=== PATIENT | male | born 1935 | race Caucasian/White ===

== ENCOUNTER 2018-04-05 06:54 | Day surgery (SDC) | payer MEDICARE, SELFPAY ==
[2018-04-05] MEDS: PROPARACAINE 0.5% OPHTH SOL 2 DROPS EYE-OP (07:44)
[2018-04-05 07:47] VITALS: BMI 27.8
[2018-04-05] MEDS: CATARACT EYE COMPOUND (10 DROPS/SYRINGE) 3 DROPS EYE-OP (07:53)
[2018-04-05 08:05] VITALS: BP 164/97; PULSE 70; RESP 16; TEMP 36.2; O2SAT 98
--- NOTE | 2018-04-05 08:37 | P.OP.PRE_ITS ---
Pre-operative Note Interval Note Changes: No
--- NOTE | 2018-04-05 08:37 | PM.PREOP ---
Pre-operative Note Interval Note Changes: No
--- NOTE | 2018-04-05 08:37 | PM.OP.1 ---
Operative Date/Time/Diagnoses Pre-op diagnosis: Nuclear cataract right eye Procedure & Clinicians Procedure: Cataract Surgery Same procedure as scheduled: Yes Surgeon: Anselmo Luna Anesthesia Type: MAC +/- and Sedation Operative Notes Procedure in detail: Patient brought to the operating suite. Tetracaine drops placed in the right eye. Marking instrument was used to arnulfo the vertical and horizontal meridians. Patient was prepped and draped in sterile manner. Wire lid speculum was placed in the eye. Marking instrument was used to arnulfo the 30 degree meridian. Betadine drops were placed on the eye. This was irrigated. Lidocaine jelly was placed on the eye. A paracentesis port was created with a side-port blade. 0.1 mL 1% preservative free lidocaine was injected into the anterior chamber. The anterior chamber was deepened with viscoelastic. 2.6 mm keratome was used to create a temporal clear corneal incision. Cystotome and Utrata forceps were used to create continuous tear capsulorrhexis. Balanced salt solution was used to hydro dissect the nucleus. The phacoemulsification handpiece was inserted and the nucleus was removed using the stop and chop technique. The irrigation aspiration handpiece was inserted and the remaining cortex was removed. Anterior chamber was deepened with viscoelastic. An Rojas [id number] intraocular lens with a power of 22.0 was injected into the capsular bag. Irrigation aspiration handpiece was inserted and the remaining viscoelastic was removed. The lens was rotated to the 30 degree meridian. Incision was hydrated with balanced salt solution and found to be leak free with pressure with Weck-Ting sponges. 0.1 mL Vigamox injected anterior chamber. 0.3 mL Kenalog 10 mg was injected subconjunctivally. Lid speculum was removed. The patient left the operating room in excellent condition. Complications: none Condition: stable Disposition: same day surgery
[2018-04-05] MEDS: CHONDROIDTIN/SOD HYALURONATE 1.05 ML SYRINGE INTRAOCULA (08:47)
[2018-04-05] MEDS: MOXIFLOXACIN OPHTH DROPS 3 ML BOTTLE 2 DROPS INJ (08:48)
[2018-04-05] MEDS: LIDOCAINE JELLY 2% 5 ML 1 APPLIC TOP (08:48)
[2018-04-05] MEDS: PHENYLEPHRINE/LIDOCAINE VIAL (OR) 0.2 ML EYE-OP (08:48)
[2018-04-05] MEDS: TETRACAINE 0.5% OPHTH DROPS 15 ML 2 DROPS EYE-RIGHT (08:49)
[2018-04-05] MEDS: TRIAMCINOLONE 50 MG/5 ML VIAL INJ (08:49)
[2018-04-05] MEDS: BALANCED SALT IRRIG SOLN NO.2 500 ML, EPINEPHrine 1 MG IRR (08:49)
[2018-04-05 10:39] VITALS: BP 145/90; PULSE 58; RESP 20; TEMP 36.3; O2SAT 100
== END 2018-04-05 09:15 | disposition home or self-care (01) ==
LOC: OR 06:57
PROVIDERS: PCP Physician Assistant; Visit Provider Ophthalmology
DX: H25.11 Age-related nuclear cataract, right eye (principal); I50.9 Heart failure, unspecified; Z95.0 Presence of cardiac pacemaker; I48.91 Unspecified atrial fibrillation
CPT/HCPCS: J0171; J2250; J3010; J3301; V2787

== ENCOUNTER 2018-04-12 07:51 | Day surgery (SDC) | payer MEDICARE, SELFPAY ==
[2018-04-12 08:34] VITALS: BMI 27.8
[2018-04-12] MEDS: PROPARACAINE 0.5% OPHTH SOL 2 DROPS EYE-OP (08:41)
[2018-04-12] MEDS: CATARACT EYE COMPOUND (10 DROPS/SYRINGE) 3 DROPS EYE-OP (08:44)
[2018-04-12 08:50] VITALS: BP 154/84; PULSE 63; RESP 15; TEMP 36.6; O2SAT 96
--- NOTE | 2018-04-12 09:43 | PM.PREOP ---
Pre-operative Note Interval Note Changes: No
--- NOTE | 2018-04-12 09:44 | P.OP_ITS ---
Operative Date/Time/Diagnoses Pre-op diagnosis: Nuclear Cataract Left eye Post-op diagnosis: same Procedure & Clinicians Surgeon: Anselmo Luna Anesthesia Type: MAC +/- and Sedation Operative Notes Procedure in detail: Patient brought to the operating suite. Tetracaine drops placed in the left eye. Patient was prepped and draped in sterile manner. Wire lid speculum was placed in the eye. Betadine drops were placed on the eye. This was irrigated. Lidocaine jelly was placed on the eye. A paracentesis port was created with a side-port blade. 0.1 mL 1% preservative free lidocaine was injected into the anterior chamber. The anterior chamber was deepened with viscoelastic. 2.6 mm keratome was used to create a temporal clear corneal incision. Cystotome and Utrata forceps were used to create continuous tear capsulorrhexis. Balanced salt solution was used to hydro dissect the nucleus. The phacoemulsification handpiece was inserted and the nucleus was removed using the stop and chop technique. The irrigation aspiration handpiece was inserted and the remaining cortex was removed. Anterior chamber was deepened with viscoelastic. An Rojas [id number] intraocular lens with a power of 21.5 was injected into the capsular bag. Irrigation aspiration handpiece was inserted and the remaining viscoelastic was removed. Incision was hydrated with balanced salt solution and found to be leak free with pressure with Weck- Ting sponges. 0.1 mL Vigamox injected anterior chamber. 0.3 mL Kenalog 10 mg was injected subconjunctivally. Lid speculum was removed. The patient left the operating room in excellent condition. Complications: none Condition: stable Disposition: same day surgery
--- NOTE | 2018-04-12 09:44 | P.OP.PRE_ITS ---
Pre-operative Note Interval Note Changes: No
[2018-04-12] MEDS: PHENYLEPHRINE/LIDOCAINE VIAL (OR) 0.2 ML EYE-OP (09:56)
[2018-04-12] MEDS: TRIAMCINOLONE 50 MG/5 ML VIAL INJ (09:57)
[2018-04-12] MEDS: MOXIFLOXACIN OPHTH DROPS 3 ML BOTTLE 2 DROPS INJ (09:57)
[2018-04-12] MEDS: CHONDROIDTIN/SOD HYALURONATE 1.05 ML SYRINGE INTRAOCULA (09:57)
[2018-04-12] MEDS: LIDOCAINE JELLY 2% 5 ML 1 APPLIC TOP (09:58)
[2018-04-12] MEDS: BALANCED SALT IRRIG SOLN NO.2 500 ML, EPINEPHrine 1 MG IRR (09:58)
[2018-04-12] MEDS: TETRACAINE 0.5% OPHTH DROPS 15 ML 2 DROPS EYE-LEFT (09:59)
[2018-04-12 10:06] VITALS: BP 134/86; PULSE 59; RESP 14; TEMP 36.1; O2SAT 99
--- NOTE | 2018-04-12 10:24 | SUR.PHASEII ---
1020 Tolerating PO well, To cafeteria w/ via wheelchair (volunteer). Pleasant, appreciative. No questions/concerns.
== END 2018-04-12 10:25 | disposition home or self-care (01) ==
PROVIDERS: PCP Physician Assistant; Visit Provider Ophthalmology
DX: H25.12 Age-related nuclear cataract, left eye (principal); I10 Essential (primary) hypertension; Z95.0 Presence of cardiac pacemaker; I48.91 Unspecified atrial fibrillation; I50.9 Heart failure, unspecified
CPT/HCPCS: J0171; J2250; J3010; J3301

== ENCOUNTER → 2020-04-08 16:22 | Outpatient (CLI) | payer MEDICARE, SELFPAY ==
[2020-04-08 17:07] LABS: Add Manual Diff / Slide Review NO; Basophils Absolute Auto 100 /uL (0-100); Basophils Percent Auto 1.4 % (0-2); Eosinophils Absolute Auto 100 /uL (0-450); Eosinophils Percent Auto 1.1 % (2-4); Hematocrit 46.4 % (41-53); Hemoglobin 15.8 g/dL (13.5-17.5); Lymphocytes Absolute Auto 1900 /uL (1100-4500); Lymphocytes Percent Auto 23.3 % (25-40); Mean Corpuscular HGB Conc 34.1 % (30-36); Monocytes Absolute Auto 1000 /uL (0-900); Monocytes Percent Auto 12.5 % (3-14); Neutrophils Absolute Auto 4900 /uL (1500-7000); Neutrophils Percent Auto 61.7 % (50-75); Platelet Count 262 X10^3/uL (150-400); Red Blood Cell Count 4.64 X10^6/uL (4.5-5.9)
[2020-04-08 17:17] LABS: Alanine Aminotransferase 36 IU/L (<50); Albumin 4.7 g/dL (3.5-5.0); Albumin Globulin Ratio 1.3 (1.0-2.8); Alkaline Phosphatase 60 U/L (38-126); Aspartate Aminotransferase 36 IU/L (17-59); BUN Creatinine Ratio 27.6 (6-22); Bilirubin Total 0.7 mg/dL (0.2-1.3); Blood Urea Nitrogen 29 mg/dL (9-20); Calcium 9.5 mg/dL (8.4-10.2); Carbon Dioxide 26 mmol/L (22-32); Chloride 102 mmol/L (98-107); Estimated Glomerular Filt Rate > 60.0 mL/min (>60); Globulin 3.5 g/dL (1.7-4.1); Glucose 99 mg/dL (80-110); HEMOLYSIS < 15 (0-50); Potassium 4.2 mmol/L (3.4-5.1); Sodium 134 mmol/L (137-145); Total Protein 8.2 g/dL (6.3-8.2)
[2020-04-08 17:36] LABS: Vitamin D 25 Hydroxy (D3) 43.3 ng/mL (30.0-100.0)
[2020-04-08 17:53] LABS: Prostate Specific Antigen Scrn < 0.064 ng/mL (0.1-4.0)
[2020-04-08 18:06] LABS: Vitamin B12 960 pg/mL (239-931)
== END ==
PROVIDERS: PCP Family Medicine; Referring Provider Family Medicine; Visit Provider Family Medicine
DX: C61 Malignant neoplasm of prostate (principal); Z12.5 Encounter for screening for malignant neoplasm of prostate; M81.0 Age-related osteoporosis without current pathological fracture; I48.91 Unspecified atrial fibrillation; R20.2 Paresthesia of skin
CPT/HCPCS: 36415; 80053; 82306; 82607; 85025; G0103

== ENCOUNTER → 2020-04-18 13:28 | Outpatient (CLI) | payer MEDICARE, SELFPAY | PROVIDERS: PCP Family Medicine; Referring Provider Family Medicine; Visit Provider Family Medicine | DX: M85.88 Other specified disorders of bone density and structure, other site (principal); Z85.46 Personal history of malignant neoplasm of prostate; Z87.891 Personal history of nicotine dependence | CPT/HCPCS: 77080 ==

== ENCOUNTER → 2020-10-03 09:26 | Outpatient (CLI) | payer MEDICARE, SELFPAY ==
[2020-10-03 11:20] LABS: Bilirubin Urine UA NEGATIVE (NEGATIVE); Color Urine UA YELLOW; Glucose Urine UA NEGATIVE (Negative); Ketones Urine UA NEGATIVE (NEGATIVE); Leukocyte Esterase Urine UA TRACE (NEGATIVE); Nitrite Urine UA NEGATIVE (Negative); Occult Blood Urine UA 3+ (Negative); Protein Urine UA 1+ (Negative); Urobilinogen Urine UA 0.2 E.U./dL (0.2)
[2020-10-03 11:26] LABS: Appearance Urine UA CLOUDY
[2020-10-03 11:43] LABS: RBC Urine >100/HPF (0-5/HPF)
[2020-10-03 11:45] LABS: WBC Urine 5-10/HPF (0-5/HPF)
[2020-10-03 11:46] LABS: Bacteria Urine Occasional (0-1); Culture Indicated Urine Specimen Cultured; Squamous Epithelial Cell Urine 0-1 /HPF (0-5/HPF)
[2020-10-03 11:47] LABS: Appearance Urine UA CLOUDY; Bilirubin Urine UA NEGATIVE (NEGATIVE); Color Urine UA RED; Glucose Urine UA NEGATIVE (Negative); Ketones Urine UA NEGATIVE (NEGATIVE); Nitrite Urine UA NEGATIVE (Negative); Occult Blood Urine UA 3+ (Negative); Protein Urine UA 2+ (Negative); Specific Gravity Urine UA 1.025 (1.000-1.035); Urobilinogen Urine UA 0.2 E.U./dL (0.2)
[2020-10-03 11:48] LABS: Leukocyte Esterase Urine UA 3+ (NEGATIVE)
[2020-10-03 11:49] LABS: RBC Urine >100/HPF (0-5/HPF)
[2020-10-03 11:50] LABS: WBC Urine 5-10/HPF (0-5/HPF)
[2020-10-03 11:51] LABS: Bacteria Urine Occasional (0-1); Culture Indicated Urine Specimen Cultured; Red Blood Cell Casts Urine 0-1/LPF
== END ==
PROVIDERS: PCP Family Medicine; Referring Provider Family Medicine; Visit Provider Family Medicine
DX: R31.9 Hematuria, unspecified (principal)
CPT/HCPCS: 81001; 87086

== ENCOUNTER 2021-09-09 12:08 | Emergency (ER) | payer MEDICARE, SELFPAY ==
[2021-09-09] VITALS (14 sets, daily range): BP systolic 134–168; BP diastolic 83–92; PULSE 62–84; RESP 16–24; TEMP 37; O2SAT 97–100; BMI 26.8
--- NOTE | 2021-09-09 12:11 | DI.RAD.S_ITS ---
PROCEDURE: XR CHEST 1V INDICATIONS: syncope TECHNIQUE: One view of the chest was acquired. COMPARISON: [facility], CHEST 1 VIEW, 01/07/2015, 15:02. [facility], CHEST 2 VIEW, 02/12/2009, 15:26. FINDINGS: Surgical changes and devices: Left chest wall pacer is seen with intact leads. Lungs and pleura: Lungs are clear. No pleural effusions or pneumothorax. Mediastinum: Mediastinal contours appear normal. Heart size is normal. The aorta is tortuous. Bones and chest wall: No suspicious bony lesions. Overlying soft tissues appear unremarkable. IMPRESSION: No acute cardiopulmonary abnormality. Dictated by: Jose Goldberg M.D. on 09/09/2021 at 12:46 Approved by: Jose Goldberg M.D. on 09/09/2021 at 12:48
--- NOTE | 2021-09-09 12:11 | DI.CT.S_ITS ---
PROCEDURE: CT HEAD/BRAIN WO CON INDICATIONS: syncope one hour ago TECHNIQUE: Noncontrast 4.5 mm thick angled axial sections acquired from the foramen magnum to the vertex, with coronal and sagittal reformats. For radiation dose reduction, the following was used: automated exposure control, adjustment of mA and/or kV according to patient size. COMPARISON: [facility], CR, CHEST 1 VIEW, 01/07/2015, 15:02. [facility], CR, XR CHEST 1V, 09/09/2021, 12:01. [facility], MR, BRAIN WITH AND WITHOUT CONTRAS, 08/31/2007, 7:08. FINDINGS: Mild global cerebral volume loss with mild chronic microvascular ischemic changes. Hyperdensity along the anterolateral right temporal lobe appears to be calcific due to cortical laminar necrosis or potentially a small calcified meningioma, although this could less likely represent a small focus of intracranial hemorrhage hemorrhage. No abnormal extra-axial fluid collection or acute intracranial hemorrhage otherwise. No mass effect or midline shift. Moderate global cerebral volume loss and mild chronic microvascular ischemic changes. Carotid and basilar atherosclerosis. Innumerable tiny foci of air adjacent to the right pterygoids, masseter, and TMJ. A few small foci of air in the bilateral carotid sinuses and adjacent to the temporalis musculature as well. In the absence of trauma, this likely represents intravenous gas introduced during IV catheter placement. Soft tissues otherwise unremarkable. No significant orbital abnormality. Paranasal sinuses and mastoid air cells are clear. No acute osseous abnormality. IMPRESSION: Nonspecific hyperdensity in the anterior right temporal lobe region. Repeat in 4 hours recommended. Numerous nonspecific foci gas the deep right facial soft tissues as described above, likely introduced during recent IV catheter placement. Follow-up study in 4 hours will also help exclude other less likely etiologies. Dictated by: Velasquez Uriarte M.D. on 09/09/2021 at 12:28 Approved by: Velasquez Uriarte M.D. on 09/09/2021 at 12:38
[2021-09-09] MEDS: SODIUM CHLORIDE 0.9% 1,000 ML 150 ML IV (12:15)
[2021-09-09 12:18] LABS: Add Manual Diff / Slide Review NO; Basophils Absolute Auto 100 /uL (0-100); Basophils Percent Auto 0.9 % (0-2); Eosinophils Absolute Auto 100 /uL (0-450); Eosinophils Percent Auto 1.7 % (2-4); Hematocrit 45.2 % (41-53); Hemoglobin 14.9 g/dL (13.5-17.5); Lymphocytes Absolute Auto 2200 /uL (1100-4500); Lymphocytes Percent Auto 27.9 % (25-40); Mean Corpuscular Hemoglobin 32.6 PG (26-34); Mean Corpuscular Volume 98.7 fL (80-100); Monocytes Absolute Auto 1000 /uL (0-900); Monocytes Percent Auto 12.6 % (3-14); Neutrophils Absolute Auto 4400 /uL (1500-7000); Neutrophils Percent Auto 56.9 % (50-75); Platelet Count 327 X10^3/uL (150-400); Red Blood Cell Count 4.58 X10^6/uL (4.5-5.9); White Blood Cell Count 7.7 X10^3/uL (4.5-11.0)
[2021-09-09 12:27] LABS: INR 2.5 (0.9-1.3); Prothrombin Time 28.3 SECONDS (10.1-12.7)
[2021-09-09 12:29] LABS: PTT Partial Thromboplastin Tim 38 SECONDS (26.4-36.2)
[2021-09-09 12:31] LABS: Alanine Aminotransferase 26 IU/L (<50); Albumin Globulin Ratio 1.3 (1.0-2.8); Alkaline Phosphatase 78 U/L (38-126); Aspartate Aminotransferase 35 IU/L (17-59); BUN Creatinine Ratio 20.9 (6-22); Bilirubin Total 0.8 mg/dL (0.2-1.3); Blood Urea Nitrogen 24 mg/dL (9-20); Calcium 9.6 mg/dL (8.4-10.2); Carbon Dioxide 21 mmol/L (22-32); Chloride 100 mmol/L (98-107); Creatine Kinase 40 U/L (55-170); Estimated Glomerular Filt Rate > 60 mL/min (>60); Globulin 3.8 g/dL (1.7-4.1); Glucose 107 mg/dL (80-110); HEMOLYSIS < 15 (0-50); Lipase 189 U/L (23-300); Potassium 4.4 mmol/L (3.4-5.1); Sodium 134 mmol/L (137-145); Total Protein 8.8 g/dL (6.3-8.2)
[2021-09-09 12:40] LABS: NT-proBNP (BNP-Adult 18+) 910 pg/mL (<450)
[2021-09-09 12:42] LABS: Troponin I 0.015 ng/mL (0.01-0.034)
--- NOTE | 2021-09-09 12:42 | ED.SYNCOPE ---
HPI - Syncope General Chief Complaint: Syncope Stated Complaint: Syncope Time Seen by Provider: 09/09/21 12:10 Source: patient and EMS Mode of arrival: EMS Limitations: no limitations History of Present Illness HPI narrative: Patient is a 86-year-old male history of atrial flutter with ablation, pacemaker on Xarelto presenting with a near syncopal episode. He was outside working on this elbow then he and his friends were sitting around chatting when suddenly he got little light headed states of the friend thought he nodded off or maybe passed out for about 1 minute. He there is no trauma he did not fall no injury to his head. He denies any chest pain palpitations headache nausea vomiting numbness tingling or weakness. He does not actually remember the event but is not feeling just fine. EMS reports that he had some orthostatic hypotension IV fluid was started. Related Data Previous Rx's Medication Instructions Recorded omeprazole 20 mg capsule,delayed 20 mg PO BID #60 cap 07/17/21 release losartan 25 mg tablet See Rx Instructions .ROUTE 09/08/21 .COMPLEX #90 tab Allergies Allergy/AdvReac Type Severity Reaction Status Date / Time morphine [MORPHINE] Allergy Intermediate halluncinat Verified 09/09/21 12:19 ions Sulfa (Sulfonamide Allergy Mild fever Verified 09/09/21 12:19 Antibiotics) Review of Systems Review of Systems Narrative: GENERAL: Denies chills, fatigue, malaise, fever, sweats, travel HEENT: Denies sinus pain, ear pain, sore throat, difficulty swallowing, neck pain RESPIRATORY: Denies dyspnea, cough, wheezing, hemoptysis, sputum. CARDIOVASCULAR: Denies chest pain, palpitations, orthopnea, edema GASTROINTESTINAL: Denies nausea, vomiting, abdominal pain, diarrhea, constipation, melena. : Denies dysuria, frequency, incontinence, hematuria, urinary retention, flank pain. MUSCULOSKELETAL: Denies weakness, joint pain, or bony pain SKIN: No rash, no erythema, no pruritus NEUROLOGIC: See HPI PSYCHIATRIC: No concerning psychosocial issues. 12 point review of systems is negative except for those stated above and HPI Patient History Medical History Abnormal chest xray AV block (~2014) Chicken pox Gross hematuria Hearing loss Herpes (~1959) History of elevated PSA (~1992) History of prostate cancer Measles Mumps Osteoporosis Plantar warts (~2004) Prostate cancer (~1992) Tinnitus (~1972) Tubular adenoma Vertigo (~2007) Surgical History Anesthesia History of appendectomy (~1955) History of prostatectomy (~1992) Pacemaker (~2012) S/P ablation of atrial fibrillation Family History Father Cancer History of heart disease Mother Pneumonia Stroke Brother Prostate cancer Sister Autoimmune disease Sister Breast cancer Social History marital status: household members: spouse lives independently: Yes education level: master's degree ([employer]) occupational status: other (retired) Smoking Status: Former smoker Tobacco: How many years used: 25 alcohol intake: current substance use type: marijuana (very rare) Smoking Status: Former smoker alcohol intake frequency: 0-2 drinks per day Exam Initial Vital Signs Initial Vital Signs: Vital Signs Temperature 98.6 F 09/09/21 12:08 Pulse Rate 64 09/09/21 12:08 Respiratory Rate 18 09/09/21 12:08 Blood Pressure 134/92 H 09/09/21 12:08 Pulse Oximetry 98 09/09/21 12:08 GENERAL: Very well-appearing 86-year-old gentleman HEENT: Head atraumatic,EOMI, pupils reactive, face symmetric, moist mucous membranes NECK: No vertebral tenderness no step-off CARDIOVASCULAR: Regular rate and rhythm without murmurs, rubs or gallops. RESPIRATORY: Breath sounds equal bilaterally, no wheezes rales or rhonchi. ABDOMEN: Soft, nontender. Normoactive bowel sounds all 4 quadrants. No guarding or rebound. EXTREMITIES: Normal range of motion, no clubbing or edema. Neurovascularly intact NEUROLOGICAL: Alert and oriented x4.Normal gait and speech. Cranial nerves II through XII grossly intact. Good [id number], good [id number], strength equal bilaterally, no dysarthria or aphasia, sensation in tact to soft touch bilaterally, no visual changes, no facial droop SKIN: Warm, dry, no laceration, no petechiae, no rashes or lesions. Course Orders Ordered: ED Orders 09/09/21 12:11 CT head/brain wo con Stat XR chest 1V Stat EKG-12 Lead Stat 09/09/21 12:12 Complete Blood Count AUTO DIFF Stat Comprehensive Metabolic Panel Stat Lipase Stat NT-proBNP (BNP-Adult 18+) Stat Partial Thromboplastin Time Stat Prothrombin Time INR Stat Troponin & CK Cardiac Panel Stat 09/09/21 16:30 CT head/brain wo con Stat Discontinued Medications Sodium Chloride (Normal Saline 0.9%) 1,000 mls @ 150 mls/hr IV CONT KRISTIAN Last Infusion: 09/09/21 16:49 Dose: 0 mls/hr Documented by: [email or web address] Admin: 09/09/21 12:15 Dose: 150 mls/hr Documented by: [email or web address] Vital Signs Vital signs: Vital Signs - 8 hr 09/09/21 12:08 09/09/21 12:13 09/09/21 12:30 Temperature 98.6 F Pulse Rate 64 75 72 Respiratory Rate 18 17 22 Blood Pressure 134/92 H Pulse Oximetry 98 98 99 09/09/21 13:00 09/09/21 13:30 09/09/21 13:32 Temperature Pulse Rate 74 75 63 Respiratory Rate 22 21 18 Blood Pressure 153/83 H Pulse Oximetry 100 98 98 09/09/21 14:00 09/09/21 14:30 09/09/21 15:00 Temperature Pulse Rate 74 79 66 Respiratory Rate 22 23 22 Blood Pressure 160/88 H Pulse Oximetry 98 97 98 09/09/21 15:30 09/09/21 16:00 09/09/21 16:36 Temperature Pulse Rate 62 78 70 Respiratory Rate 22 24 17 Blood Pressure Pulse Oximetry 98 09/09/21 16:38 09/09/21 17:33 Temperature Pulse Rate 64 84 Respiratory Rate 20 16 Blood Pressure 168/87 H 168/86 H Pulse Oximetry 99 97 MDM - Syncope Lab Data Result diagrams: 09/09/21 12:12 09/09/21 12:12 Labs: Lab Results 09/09/21 09/09/21 09/09/21 Range/Units 12:12 12:12 12:12 WBC 7.7 (4.5-11.0) X10^3/uL RBC 4.58 (4.5-5.9) X10^6/uL Hgb 14.9 (13.5-17.5) g/dL Hct 45.2 (41-53) % MCV 98.7 (80-100) fL MCH 32.6 (26-34) PG MCHC 33.0 (30-36) % RDW 14.0 (11.6-14.8) % Plt Count 327 (150-400) X10^3/uL Neut % (Auto) 56.9 (50-75) % Lymph % (Auto) 27.9 (25-40) % [place] % (Auto) 12.6 (3-14) % Eos % (Auto) 1.7 L (2-4) % Baso % (Auto) 0.9 (0-2) % Neut # (Auto) 4400 (1555-1511) /uL Lymph # (Auto) 2200 (4492-8416) /uL [place] # (Auto) 1000 H (0-900) /uL Eos # (Auto) 100 (0-450) /uL Baso # (Auto) 100 (0-100) /uL PT 28.3 H (10.1-12.7) SECONDS INR 2.5 H (0.9-1.3) APTT 38 H (26.4-36.2) SECONDS Sodium (137-145) mmol/L Potassium (3.4-5.1) mmol/L Chloride (98-107) mmol/L Carbon Dioxide (22-32) mmol/L BUN (9-20) mg/dL Creatinine (0.66-1.25) mg/dL Estimated GFR (>60) mL/min BUN/Creatinine Ratio (6-22) Glucose (80-110) mg/dL Calcium (8.4-10.2) mg/dL Total Bilirubin (0.2-1.3) mg/dL AST (17-59) IU/L ALT (<50) IU/L Alkaline Phosphatase (38-126) U/L Total Creatine Kinase (55-170) U/L CK-MB (CK-2) CK-MB (CK-2) Rel Index Troponin I (0.01-0.034) ng/mL NT-Pro-B Natriuret Pep 910 H (<450) pg/mL Total Protein (6.3-8.2) g/dL Albumin (3.5-5.0) g/dL Globulin (1.7-4.1) g/dL Albumin/Globulin Ratio (1.0-2.8) Lipase (23-300) U/L 09/09/21 Range/Units 12:12 WBC (4.5-11.0) X10^3/uL RBC (4.5-5.9) X10^6/uL Hgb (13.5-17.5) g/dL Hct (41-53) % MCV (80-100) fL MCH (26-34) PG MCHC (30-36) % RDW (11.6-14.8) % Plt Count (150-400) X10^3/uL Neut % (Auto) (50-75) % Lymph % (Auto) (25-40) % [place] % (Auto) (3-14) % Eos % (Auto) (2-4) % Baso % (Auto) (0-2) % Neut # (Auto) (6658-3848) /uL Lymph # (Auto) (9082-7871) /uL [place] # (Auto) (0-900) /uL Eos # (Auto) (0-450) /uL Baso # (Auto) (0-100) /uL PT (10.1-12.7) SECONDS INR (0.9-1.3) APTT (26.4-36.2) SECONDS Sodium 134 L (137-145) mmol/L Potassium 4.4 (3.4-5.1) mmol/L Chloride 100 (98-107) mmol/L Carbon Dioxide 21 L (22-32) mmol/L BUN 24 H (9-20) mg/dL Creatinine 1.15 (0.66-1.25) mg/dL Estimated GFR > 60 (>60) mL/min BUN/Creatinine Ratio 20.9 (6-22) Glucose 107 (80-110) mg/dL Calcium 9.6 (8.4-10.2) mg/dL Total Bilirubin 0.8 (0.2-1.3) mg/dL AST 35 (17-59) IU/L ALT 26 (<50) IU/L Alkaline Phosphatase 78 (38-126) U/L Total Creatine Kinase 40 L (55-170) U/L CK-MB (CK-2) TNP CK-MB (CK-2) Rel Index TNP Troponin I 0.015 (0.01-0.034) ng/mL NT-Pro-B Natriuret Pep (<450) pg/mL Total Protein 8.8 H (6.3-8.2) g/dL Albumin 5.0 (3.5-5.0) g/dL Globulin 3.8 (1.7-4.1) g/dL Albumin/Globulin Ratio 1.3 (1.0-2.8) Lipase 189 (23-300) U/L Imaging Data CT scan - head: Radiologist's Impression: Signed Patient: Anselmo Castro MR#: [id number] : 1935 Acct:[id number] Age/Sex: 86 / M Date of Service: 09/09/21 Loc: ED Accession Number: [id number] ?? Procedure: CT head/brain wo con Ordering Provider: Luna Merida D.O. PROCEDURE:? CT HEAD/BRAIN WO CON ? INDICATIONS:? syncope one hour ago ? TECHNIQUE:? Noncontrast 4.5 mm thick angled axial sections acquired from the foramen magnum to the vertex, with coronal and sagittal reformats.? For radiation dose reduction, the following was used:? automated exposure control, adjustment of mA and/or kV according to patient size.? ? COMPARISON:? [facility], CR, CHEST 1 VIEW, 01/07/2015, 15:02.? [facility], CR, XR CHEST 1V, 09/09/2021, 12:01.? [facility], MR, BRAIN WITH AND WITHOUT CONTRAS, 08/31/2007, 7:08. ? FINDINGS:? ? ? Mild global cerebral volume loss with mild chronic microvascular ischemic changes.? ? Hyperdensity along the anterolateral right temporal lobe appears to be calcific due to cortical laminar necrosis or potentially a small calcified meningioma, although this could less likely represent a small focus of intracranial hemorrhage hemorrhage.? No abnormal extra-axial fluid collection or acute intracranial hemorrhage otherwise.? No mass effect or midline shift.? Moderate global cerebral volume loss and mild chronic microvascular ischemic changes.? Carotid and basilar atherosclerosis. Innumerable tiny foci of air adjacent to the right pterygoids, masseter, and TMJ.? A few small foci of air in the bilateral carotid sinuses and adjacent to the temporalis musculature as well.? In the absence of trauma, this likely represents intravenous gas introduced during IV catheter placement. ? Soft tissues otherwise unremarkable.? No significant orbital abnormality.? Paranasal sinuses and mastoid air cells are clear.? No acute osseous abnormality. ? IMPRESSION: ? Nonspecific hyperdensity in the anterior right temporal lobe region.? Repeat in 4 hours recommended. ? Numerous nonspecific foci gas the deep right facial soft tissues as described above, likely introduced during recent IV catheter placement.? Follow-up study in 4 hours will also help exclude other less likely etiologies. ? ? Dictated by: Velasquez Uriarte M.D. on 09/09/2021 at 12:28 ? ? CT Head #2: Radiologist's Impression: CT Scan Report Signed Patient: Anselmo Castro MR#: [id number] : 1935 Acct:[id number] Age/Sex: 86 / M Date of Service: 09/09/21 Loc: ED Accession Number: [id number] ?? Procedure: CT head/brain wo con Ordering Provider: Luna Merida D.O. PROCEDURE:? CT HEAD/BRAIN WO CON ? INDICATIONS:? repeat on xeralto ? bleed vs meningioma, air also noted ? TECHNIQUE:? Noncontrast 4.5 mm thick angled axial sections acquired from the foramen magnum to the vertex, with coronal and sagittal reformats.? For radiation dose reduction, the following was used:? automated exposure control, adjustment of mA and/or kV according to patient size.? ? COMPARISON:? [facility], CT, CT HEAD/BRAIN WO CON, 09/09/2021, 12:24. ? FINDINGS:? ? 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 There has been no significant change from the prior study, and this is felt very unlikely to represent intracranial hemorrhage.? No intracranial hemorrhage elsewhere.? Global cerebral volume loss and chronic microvascular ischemic changes.? Intracranial atherosclerosis.? No acute or suspicious osseous lesion.? Subcutaneous emphysema seen previously has resolved. ? IMPRESSION:? ? Hyperdense and likely extra-axial mass favored to represent a meningioma in the right middle cranial fossa.? Nonemergent outpatient MRI of the brain with without IV contrast recommended for further evaluation. ? 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 ? Dictated by: Velasquez Uriarte M.D. on 09/09/2021 at 16:38 ? ? Approved by: Velasquez Uriarte M.D. on 09/09/2021 at 16:39? ECG Data Interpretation: Paced rhythm 73 TX interval 174 QRS [address] changes or to previous MDM Narrative Medical decision making narrative: Patient here with unprovoked syncopal episode initial CT show concern for a meningioma versus hemorrhage. Patient is neurologically intact. He has been monitored in the emergency department for [address] does not show any change. Patient's blood work and EKG are overall reassuring. Patient had a brief syncopal episode while sitting today without any evidence trauma. He did have some air noted in the subcutaneous to Chi tissue on 1st head CT likely from an IV start which actually resolved on the 2nd head CT. Multiple attempts to interrogate the patient's pacemaker [employer], but technical difficulties unable to transmit. Patient states that he has something off home notify him if there has been an abnormality. 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 Patient was out in the sun today working on a boat he may have overdone it. At this time no need for admission. Discharge Plan Departure Patient Disposition: Home Clinical Impression: Near syncope Instructions: DI for Syncope in Adults (Fainting) Activity Restrictions/Additional Instructions: *You have been diagnosed with fainting *What to do: Your CT does show a probable meningioma which is benign and needs to be followed with your primary care provider. It unlikely and that this is what caused you to pass out today. *Continue to take medications as directed *Follow up with your primary care provider in 2-3 days or call [phone] *Return to ER if you should have worsening headache nausea vomiting numbness tingling weakness recurrent episode of passing out or any new, worsening or concerning symptoms Prescriptions: No Action omeprazole 20 mg capsule,delayed release(DR/EC) 20 mg PO BID Qty: 60 0RF losartan 25 mg tablet See Rx Instructions .ROUTE .COMPLEX Qty: 90 0RF Dose Instruction: TAKE ONE TABLET BY MOUTH ONE TIME DAILY Rx Instructions: TAKE ONE TABLET BY MOUTH ONE TIME DAILY Referrals: Manjula Garcia, [Primary Care Provider] -
--- NOTE | 2021-09-09 16:30 | DI.CT.S_ITS ---
PROCEDURE: CT HEAD/BRAIN WO CON INDICATIONS: repeat on xeralto ? bleed vs meningioma, air also noted TECHNIQUE: Noncontrast 4.5 mm thick angled axial sections acquired from the foramen magnum to the vertex, with coronal and sagittal reformats. For radiation dose reduction, the following was used: automated exposure control, adjustment of mA and/or kV according to patient size. COMPARISON: [facility], CT, CT HEAD/BRAIN WO CON, 09/09/2021, 12:24. 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 There has been no significant change from the prior study, and this is felt very unlikely to represent intracranial hemorrhage. No intracranial hemorrhage elsewhere. Global cerebral volume loss and chronic microvascular ischemic changes. Intracranial atherosclerosis. No acute or suspicious osseous lesion. Subcutaneous emphysema seen previously has resolved. IMPRESSION: Hyperdense and likely extra-axial mass favored to represent a meningioma in the right middle cranial fossa. Nonemergent outpatient MRI of the brain with without IV contrast recommended for further evaluation. Resolution of previously seen subcutaneous emphysema in the right cylinder steamer space. Dictated by: Velasquez Uriarte M.D. on 09/09/2021 at 16:38 Approved by: Velasquez Uriarte M.D. on 09/09/2021 at 16:39
--- NOTE | 2021-09-09 17:35 | PC.NURSE ---
Multiple attempts made to send pacemaker data to [employer]. These attempts were unsuccessful despite various attempts. 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 Pt verbalized understanding of discharge instructions at this time.
== END 2021-09-09 17:35 | disposition home or self-care (01) ==
PROVIDERS: Emergency Provider Emergency Medicine; PCP Family Medicine
DX: R55 Syncope and collapse (principal); Z95.0 Presence of cardiac pacemaker; Z79.01 Long term (current) use of anticoagulants
CPT/HCPCS: 70450; 71045; 80053; 82550; 83690; 83880; 84484; 85025; 85610; 85730; 93005; 99284

== ENCOUNTER → 2022-02-26 09:54 | Outpatient (CLI) | payer MEDICARE, SELFPAY ==
--- NOTE | 2022-02-26 09:56 | DI.CT.S_ITS ---
PROCEDURE: CT HEAD/BRAIN WO CON INDICATIONS: follow up meningioma TECHNIQUE: Noncontrast 4.5 mm thick angled axial sections acquired from the foramen magnum to the vertex, with coronal and sagittal reformats. For radiation dose reduction, the following was used: automated exposure control, adjustment of mA and/or kV according to patient size. COMPARISON: [facility], MR, BRAIN WITH AND WITHOUT CONTRAS, 08/31/2007, 7:08. [facility], CT, CT HEAD/BRAIN WO CON, 09/09/2021, 12:24. [facility], CT, CT HEAD/BRAIN WO CON, 09/09/2021, 14:36. FINDINGS: Right anterolateral middle cranial fossa meningioma is not significantly changed in size from previous examination, again measuring approximately 1.2 x 1.6 centimeters maximum axial dimension and 1.3 centimeters craniocaudal. No acute intracranial hemorrhage. No abnormal extra-axial fluid collection. No findings of significant mass effect. Normal ventricular caliber and position. Patent basilar cisterns. Mild global cerebral volume loss and chronic microvascular ischemic changes are similar. IMPRESSION: Unchanged calcified right anterolateral middle cranial fossa meningioma. Dictated by: Velasquez Uriarte M.D. on 02/26/2022 at 10:59 Approved by: Velasquez Uriarte M.D. on 02/26/2022 at 11:11
== END ==
PROVIDERS: PCP Family Medicine; Referring Provider Family Medicine; Visit Provider Family Medicine
DX: D32.0 Benign neoplasm of cerebral meninges (principal)
CPT/HCPCS: 70450

== ENCOUNTER → 2022-05-07 11:21 | Outpatient (CLI) | payer MEDICARE, SELFPAY ==
--- NOTE | 2022-05-07 11:24 | DI.RAD.S_ITS ---
PROCEDURE: XR HIP W PEL IF DONE RT 2V INDICATIONS: Right hip pain TECHNIQUE: AP pelvis with lateral view(s) of the right hip(s). COMPARISON: None. FINDINGS: Bones: No fractures or dislocations. Pelvic ring appears intact. No suspicious bony lesions. Degenerative changes of the right femoroacetabular joint. Soft tissues: The visualized bowel gas pattern is normal. No suspicious soft tissue calcifications. Surgical clips noted in the right lower pelvis. IMPRESSION: Right hip degenerative change. No acute fracture or dislocation. Dictated by: Meliton Eubanks M.D. on 05/07/2022 at 12:20 Approved by: Meliton Eubanks M.D. on 05/07/2022 at 12:21
[2022-05-07 13:30] LABS: Prostate Specific Antigen < 0.064 ng/mL (0.10-4.00)
== END ==
PROVIDERS: Urology; PCP Family Medicine; Referring Provider Registered Nurse; Visit Provider Registered Nurse
DX: C61 Malignant neoplasm of prostate (principal); R31.0 Gross hematuria; M25.551 Pain in right hip
CPT/HCPCS: 36415; 73502; 84153

== ENCOUNTER 2022-09-25 21:37 | Emergency (ER) | payer MEDICARE, SELFPAY ==
[2022-09-25 21:48] VITALS: BP 194/109; PULSE 70; RESP 18; TEMP 36.3; O2SAT 96; BMI 27.1
--- NOTE | 2022-09-25 22:14 | ED_ITS ---
HPI - General Adult <Jayjay Alexis DO - Last Filed: 09/26/22 17:59> General Chief complaint: Urogenital-Male Stated complaint: Cramping bladder pain Time Seen by Provider: 09/25/22 21:48 Source: patient Mode of arrival: Ambulatory History of Present Illness HPI narrative: Patient is an 87-year-old male. Has a history of adenocarcinoma of the prostate. Had a radical prostatectomy back in the early . Has been on anticoagulation in the past for atrial fibrillation/a flutter however has not been on any blood thinners for a year or more. Has had issues with hematuria in the past. Has seen urology in the past. Has been reported that he is had urethral varices at some point in the past they were noticed on cystoscopy. Last saw urology little over 1 year ago. States he was at his normal state of h ealth. Last night had a fairly sudden onset of hematuria. Is also having quite a bit of lower abdominal pain and dysuria and frequency. He also states that he has been having some issues with constipation. Has not taken anything for his constipation. No fevers. No vomiting. Related Data Previous Rx's Medication Instructions Recorded omeprazole 20 mg capsule,delayed 20 mg PO BID #60 caps 07/17/21 release losartan 25 mg tablet See Rx Instructions .Route 12/22/21 .COMPLEX #90 tabs methocarbamol 500 mg tablet 500 mg PO TID PRN muscle pain #20 05/07/22 tabs oxycodone-acetaminophen 5 mg-325 1 tab PO Q6H PRN pain #10 tabs 05/07/22 mg tablet (Percocet) Allergies Allergy/AdvReac Type Severity Reaction Status Date / Time morphine [MORPHINE] Allergy Intermediate halluncinat Verified 09/09/21 12:19 ions Sulfa (Sulfonamide Allergy Mild fever Verified 09/09/21 12:19 Antibiotics) Review of Systems <Jayjay Alexis DO - Last Filed: 09/26/22 17:59> Constitutional Constitutional: Reports system reviewed and no additional complaints, except as documented Gastrointestinal Gastrointestinal: Reports system reviewed and no additional complaints, except as documented Genitourinary Genitourinary: Reports system reviewed and no additional complaints, except as d ocumented Musculoskeletal Musculoskeletal: Reports system reviewed and no additional complaints, except as documented Integumentary/Breasts Skin/Breast: Reports system reviewed and no additional complaints, except as documented Neurologic Neurologic: Reports system reviewed and no additional complaints, except as documented Hematologic/Lymphatic On Anticoagulants: No Patient History <Jayjay Alexis DO - Last Filed: 09/26/22 17:59> Medical History Abnormal chest xray AV block (~2014) Chicken pox Gross hematuria Hearing loss Herpes (~1959) History of elevated PSA (~1992) History of prostate cancer Measles Mumps Osteoporosis Pacemaker Plantar warts (~2004) Prostate cancer (~1992) Tinnitus (~1972) Tubular adenoma Vertigo (~2007) Surgical History Anesthesia History of appendectomy (~1955) History of prostatectomy (~1992) Hx of total knee arthroplasty (~2021) Pacemaker (~2012) S/P ablation of atrial fibrillation Family History Father Cancer History of heart disease Mother Pneumonia Stroke Brother Prostate cancer Sister Autoimmune disease Sister Breast cancer Social History marital status: household members: spouse lives independently: Yes 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; 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) occupational status: other (retired) Smoking Status: Former smoker Tobacco: How many years used: 25 alcohol intake: current substance use type: marijuana (very rare) Smoking Status: Former smoker alcohol intake frequency: 0-2 drinks per day Substance Use Type: does not use Exam <Jayjay Alexis DO - Last Filed: 09/26/22 17:59> Initial Vital Signs Initial Vital Signs: Vital Signs Temperature 97.4 F L 09/25/22 21:48 Pulse Rate 70 09/25/22 21:48 Respiratory Rate 18 09/25/22 21:48 Blood Pressure 194/109 H 09/25/22 21:48 Pulse Oximetry 96 09/25/22 21:48 Oxygen Delivery Method Room Air 09/25/22 21:48 Const General: cooperative and No ill appearing HENMT Head: normal to inspection and normocephalic Resp Effort & Inspection: normal respiratory effort Auscultation: clear to auscultation bilaterally Cardio Rate: regular rate Rhythm: regular rhythm GI Inspection: normal to inspection and non-distended Palpation: soft and tender General: bimanual renal exam normal bilaterally Skin General: no rashes or lesions noted Neuro General: patient alert, patient awake and moves all extremities Extrem General: normal to inspection and capillary refill normal <Rios Wray DO - Last Filed: 09/26/22 08:25> Initial Vital Signs Initial Vital Signs: Vital Signs Temperature 97.4 F L 09/25/22 21:48 Pulse Rate 70 09/25/22 21:48 Respiratory Rate 18 09/25/22 21:48 Blood Pressure 194/109 H 09/25/22 21:48 Pulse Oximetry 96 09/25/22 21:48 Oxygen Delivery Method Room Air 09/25/22 21:48 Course <Jayjay Alexis DO - Last Filed: 09/26/22 17:59> Orders Ordered: Discontinued Medications Hydromorphone HCl (Hydromorphone 0.5 Mg Inj) 0.5 mg IV NOW ONE Stop: 09/25/22 23:27 Last Admin: 09/25/22 23:37 Dose: 0.5 mg Documented By: JONATHAN Sodium Chloride (Normal Saline 0.9%) 1,000 mls @ 1,000 mls/hr IV BOLUS ONE Stop: 09/25/22 23:44 Last Infusion: 09/26/22 00:40 Dose: 0 mls/hr Documented By: Admin: 09/25/22 23:37 Dose: 1,000 mls/hr Documented By: JONATHAN Sodium Chloride (Normal Saline 0.9%) 1,000 mls @ 1,000 mls/hr IV BOLUS ONE Stop: 09/26/22 01:31 Last Infusion: 09/26/22 02:28 Dose: 0 mls/hr Documented By: Admin: 09/26/22 01:28 Dose: 1,000 mls/hr Documented By: JONATHAN Lidocaine HCl (Lidocaine 2% (Glydo) 6 Ml Gel) 6 ml TOP NOW ONE Stop: 09/26/22 00:47 Last Admin: 09/26/22 01:28 Dose: 6 ml Documented By: JONATHAN Lidocaine HCl (Lidocaine 2% (Glydo) 6 Ml Gel) 6 ml TOP NOW ONE Stop: 09/26/22 06:14 Phenazopyridine HCl (Phenazopyridine 100 Mg Tablet) 100 mg PO NOW ONE Stop: 09/25/22 22:44 Last Admin: 09/25/22 23:37 Dose: 100 mg Documented By: JONATHAN Vital Signs Vital signs: Vital Signs - 8 hr 09/26/22 00:35 09/26/22 00:35 09/26/22 00:36 Pulse Rate 70 70 Respiratory Rate 18 Blood Pressure 202/110 H Pulse Oximetry 96 94 09/26/22 00:36 09/26/22 00:47 09/26/22 01:14 Pulse Rate 68 Respiratory Rate Blood Pressure 202/116 H 171/94 H Pulse Oximetry 96 09/26/22 02:21 09/26/22 02:36 09/26/22 03:00 Pulse Rate Respiratory Rate Blood Pressure 180/99 H 186/101 H 182/93 H Pulse Oximetry 09/26/22 03:30 09/26/22 04:00 09/26/22 04:21 Pulse Rate Respiratory Rate Blood Pressure 169/99 H 186/115 H 186/102 H Pulse Oximetry 09/26/22 04:30 Pulse Rate Respiratory Rate 20 Blood Pressure 169/95 H Pulse Oximetry <Rios Wray, - Last Filed: 09/26/22 08:25> Orders Ordered: Discontinued Medications Hydromorphone HCl (Hydromorphone 0.5 Mg Inj) 0.5 mg IV NOW ONE Stop: 09/25/22 23:27 Last Admin: 09/25/22 23:37 Dose: 0.5 mg Documented By: JONATHAN Sodium Chloride (Normal Saline 0.9%) 1,000 mls @ 1,000 mls/hr IV BOLUS ONE Stop: 09/25/22 23:44 Last Infusion: 09/26/22 00:40 Dose: 0 mls/hr Documented By: Admin: 09/25/22 23:37 Dose: 1,000 mls/hr Documented By: JONATHAN Sodium Chloride (Normal Saline 0.9%) 1,000 mls @ 1,000 mls/hr IV BOLUS ONE Stop: 09/26/22 01:31 Last Infusion: 09/26/22 02:28 Dose: 0 mls/hr Documented By: Admin: 09/26/22 01:28 Dose: 1,000 mls/hr Documented By: JONATHAN Lidocaine HCl (Lidocaine 2% (Glydo) 6 Ml Gel) 6 ml TOP NOW ONE Stop: 09/26/22 00:47 Last Admin: 09/26/22 01:28 Dose: 6 ml Documented By: JONATHAN Lidocaine HCl (Lidocaine 2% (Glydo) 6 Ml Gel) 6 ml TOP NOW ONE Stop: 09/26/22 06:14 Phenazopyridine HCl (Phenazopyridine 100 Mg Tablet) 100 mg PO NOW ONE Stop: 09/25/22 22:44 Last Admin: 09/25/22 23:37 Dose: 100 mg Documented By: JONATHAN Vital Signs Vital signs: Vital Signs - 8 hr 09/26/22 00:35 09/26/22 00:35 09/26/22 00:36 Pulse Rate 70 70 Respiratory Rate 18 Blood Pressure 202/110 H Pulse Oximetry 96 94 09/26/22 00:36 09/26/22 00:47 09/26/22 01:14 Pulse Rate 68 Respiratory Rate Blood Pressure 202/116 H 171/94 H Pulse Oximetry 96 09/26/22 02:21 09/26/22 02:36 09/26/22 03:00 Pulse Rate Respiratory Rate Blood Pressure 180/99 H 186/101 H 182/93 H Pulse Oximetry 09/26/22 03:30 09/26/22 04:00 09/26/22 04:21 Pulse Rate Respiratory Rate Blood Pressure 169/99 H 186/115 H 186/102 H Pulse Oximetry 09/26/22 04:30 Pulse Rate Respiratory Rate 20 Blood Pressure 169/95 H Pulse Oximetry Medical Decision Making <Jayjay Alexis DO - Last Filed: 09/26/22 17:59> Medical Records Medical records reviewed: Yes I reviewed the patient's medical records. Lab Data Lab results reviewed: Yes I reviewed the patient's lab results. 09/26/22 03:36 09/25/22 23:30 Labs: Lab Results 09/25/22 09/25/22 09/25/22 Range/Units 22:13 23:30 23:30 WBC 8.1 (4.5-11.0) X10^3/uL RBC 4.56 (4.5-5.9) X10^6/uL Hgb 15.3 (13.5-17.5) g/dL Hct 44.7 (41-53) % MCV 98.1 (80-100) fL MCH 33.5 (26-34) PG MCHC 34.2 (30-36) % RDW 12.9 (11.6-14.8) % Plt Count 237 (150-400) X10^3/uL Neut % (Auto) 59.9 (50-75) % Lymph % (Auto) 22.6 L (25-40) % [place] % (Auto) 14.4 H (3-14) % Eos % (Auto) 2.2 (2-4) % Baso % (Auto) 0.9 (0-2) % Neut # (Auto) 4800 (3164-8218) /uL Lymph # (Auto) 1800 (6662-9554) /uL [place] # (Auto) 1200 H (0-900) /uL Eos # (Auto) 200 (0-450) /uL Baso # (Auto) 100 (0-100) /uL Sodium 132 L (137-145) mmol/L Potassium 4.4 (3.4-5.1) mmol/L Chloride 101 (98-107) mmol/L Carbon Dioxide 19 L (22-32) mmol/L BUN 29 H (9-20) mg/dL Creatinine 1.18 (0.66-1.25) mg/dL Estimated GFR > 60 (>60) mL/min BUN/Creatinine Ratio 24.6 H (6-22) Glucose 101 (80-110) mg/dL Calcium 8.8 (8.4-10.2) mg/dL Total Bilirubin 1.2 (0.2-1.3) mg/dL AST 40 (17-59) IU/L ALT 38 (<50) IU/L Alkaline Phosphatase 89 (38-126) U/L Total Protein 8.4 H (6.3-8.2) g/dL Albumin 4.7 (3.5-5.0) g/dL Globulin 3.7 (1.7-4.1) g/dL Albumin/Globulin Ratio 1.3 (1.0-2.8) Lipase 129 (23-300) U/L Urine Color Dark yellow Urine Appearance Turbid Urine pH 6.5 (4.5-8.0) Ur Specific [place] 1.020 (1.000-1.035) Urine Protein TNP Urine Glucose (UA) TNP Urine Ketones TNP Urine Occult Blood 3+ H (Negative) Urine Nitrate TNP Urine Bilirubin TNP Urine Urobilinogen TNP Ur Leukocyte Esterase Trace H (NEGATIVE) Urine RBC >100/hpf H (0-5/HPF) Urine WBC 0-1/hpf (0-5/HPF) Urine Bacteria Occasional (0-1) (None) 09/26/22 Range/Units 03:36 WBC (4.5-11.0) X10^3/uL RBC (4.5-5.9) X10^6/uL Hgb 13.9 (13.5-17.5) g/dL Hct 40.5 L (41-53) % MCV (80-100) fL MCH (26-34) PG MCHC (30-36) % RDW (11.6-14.8) % Plt Count (150-400) X10^3/uL Neut % (Auto) (50-75) % Lymph % (Auto) (25-40) % [place] % (Auto) (3-14) % Eos % (Auto) (2-4) % Baso % (Auto) (0-2) % Neut # (Auto) (3891-8484) /uL Lymph # (Auto) (5004-2625) /uL [place] # (Auto) (0-900) /uL Eos # (Auto) (0-450) /uL Baso # (Auto) (0-100) /uL Sodium (137-145) mmol/L Potassium (3.4-5.1) mmol/L Chloride (98-107) mmol/L Carbon Dioxide (22-32) mmol/L BUN (9-20) mg/dL Creatinine (0.66-1.25) mg/dL Estimated GFR (>60) mL/min BUN/Creatinine Ratio (6-22) Glucose (80-110) mg/dL Calcium (8.4-10.2) mg/dL Total Bilirubin (0.2-1.3) mg/dL AST (17-59) IU/L ALT (<50) IU/L Alkaline Phosphatase (38-126) U/L Total Protein (6.3-8.2) g/dL Albumin (3.5-5.0) g/dL Globulin (1.7-4.1) g/dL Albumin/Globulin Ratio (1.0-2.8) Lipase (23-300) U/L Urine Color Urine Appearance Urine pH (4.5-8.0) Ur Specific [place] (1.000-1.035) Urine Protein Urine Glucose (UA) Urine Ketones Urine Occult Blood (Negative) Urine Nitrate Urine Bilirubin Urine Urobilinogen Ur Leukocyte Esterase (NEGATIVE) Urine RBC (0-5/HPF) Urine WBC (0-5/HPF) Urine Bacteria (None) Imaging Data Abdominal x-ray: Radiologist's Impression: PROCEDURE:? XR ABDOMEN 1V ? INDICATIONS:? lower abd pain w hx of constipation ? TECHNIQUE:? One view of the abdomen acquired.? ? COMPARISON:? None. ? FINDINGS:? ? Surgical changes and devices:? Pacer leads are partially seen.? Lower pelvis postoperative clips can be seen. ? Bowel:? Bowel gas pattern is normal.? There is a moderate amount of stool seen within the colon. ? Soft tissues:? No suspicious abdominal calcifications.? Visualized solid organ contours appear normal in size.? Atherosclerotic calcification is noted.? ? Bones:? No suspicious bony lesions.? Age-appropriate bony degenerative changes are seen.? IMPRESSION:? There is a moderate amount of stool seen within the colon, which is consistent with the given clinical history of constipation. CT scan - abdomen/pelvis: Radiologist's Impression: Increased attenuation fluid is noted within the urinary bladder, suggesting blood byproducts in this patient with reported history of hematuria. There is a lso mild nonspecific haziness/stranding adjacent to the anterior aspect of the urinary bladder. Correlation with urinalysis is advised. MDM Narrative Medical decision making narrative: Initial bladder scan showed very little retained urine. Patient was able to urinate a small amount that was prince blood. Was having quite a bit of abdominal discomfort. X-ray of his abdomen is consistent with constipation but no other signs of obstruction. Urinalysis shows no signs of infection. Bedside ultrasound performed by myself showed retained urine consistent more with approximately 500 cc of urine. A three-way catheter was placed. Placement of this catheter did confirm approximately 500 cc of urine. It was draining pia ropriately. He did have improvement of some lower abdominal discomfort. Patient was irrigated with approximately 7 L of fluid. He was still having blood in the urine. CT scan shows clot. I discussed the case with Dr. Cifuentes with Urology at [facility] who recommended placing a larger catheter and performing manual irrigation. Care turned over to day provider to follow-up and disposition. <Rios Wray DO - Last Filed: 09/26/22 08:25> Lab Data Labs: Lab Results 09/25/22 09/25/22 09/25/22 Range/Units 22:13 23:30 23:30 WBC 8.1 (4.5-11.0) X10^3/uL RBC 4.56 (4.5-5.9) X10^6/uL Hgb 15.3 (13.5-17.5) g/dL Hct 44.7 (41-53) % MCV 98.1 (80-100) fL MCH 33.5 (26-34) PG MCHC 34.2 (30-36) % RDW 12.9 (11.6-14.8) % Plt Count 237 (150-400) X10^3/uL Neut % (Auto) 59.9 (50-75) % Lymph % (Auto) 22.6 L (25-40) % [place] % (Auto) 14.4 H (3-14) % Eos % (Auto) 2.2 (2-4) % Baso % (Auto) 0.9 (0-2) % Neut # (Auto) 4800 (4886-9676) /uL Lymph # (Auto) 1800 (0626-5070) /uL [place] # (Auto) 1200 H (0-900) /uL Eos # (Auto) 200 (0-450) /uL Baso # (Auto) 100 (0-100) /uL Sodium 132 L (137-145) mmol/L Potassium 4.4 (3.4-5.1) mmol/L Chloride 101 (98-107) mmol/L Carbon Dioxide 19 L (22-32) mmol/L BUN 29 H (9-20) mg/dL Creatinine 1.18 (0.66-1.25) mg/dL Estimated GFR > 60 (>60) mL/min BUN/Creatinine Ratio 24.6 H (6-22) Glucose 101 (80-110) mg/dL Calcium 8.8 (8.4-10.2) mg/dL Total Bilirubin 1.2 (0.2-1.3) mg/dL AST 40 (17-59) IU/L ALT 38 (<50) IU/L Alkaline Phosphatase 89 (38-126) U/L Total Protein 8.4 H (6.3-8.2) g/dL Albumin 4.7 (3.5-5.0) g/dL Globulin 3.7 (1.7-4.1) g/dL Albumin/Globulin Ratio 1.3 (1.0-2.8) Lipase 129 (23-300) U/L Urine Color Dark yellow Urine Appearance Turbid Urine pH 6.5 (4.5-8.0) Ur Specific [place] 1.020 (1.000-1.035) Urine Protein TNP Urine Glucose (UA) TNP Urine Ketones TNP Urine Occult Blood 3+ H (Negative) Urine Nitrate TNP Urine Bilirubin TNP Urine Urobilinogen TNP Ur Leukocyte Esterase Trace H (NEGATIVE) Urine RBC >100/hpf H (0-5/HPF) Urine WBC 0-1/hpf (0-5/HPF) Urine Bacteria Occasional (0-1) (None) 09/26/22 Range/Units 03:36 WBC (4.5-11.0) X10^3/uL RBC (4.5-5.9) X10^6/uL Hgb 13.9 (13.5-17.5) g/dL Hct 40.5 L (41-53) % MCV (80-100) fL MCH (26-34) PG MCHC (30-36) % RDW (11.6-14.8) % Plt Count (150-400) X10^3/uL Neut % (Auto) (50-75) % Lymph % (Auto) (25-40) % [place] % (Auto) (3-14) % Eos % (Auto) (2-4) % Baso % (Auto) (0-2) % Neut # (Auto) (6425-3949) /uL Lymph # (Auto) (1056-1267) /uL [place] # (Auto) (0-900) /uL Eos # (Auto) (0-450) /uL Baso # (Auto) (0-100) /uL Sodium (137-145) mmol/L Potassium (3.4-5.1) mmol/L Chloride (98-107) mmol/L Carbon Dioxide (22-32) mmol/L BUN (9-20) mg/dL Creatinine (0.66-1.25) mg/dL Estimated GFR (>60) mL/min BUN/Creatinine Ratio (6-22) Glucose (80-110) mg/dL Calcium (8.4-10.2) mg/dL Total Bilirubin (0.2-1.3) mg/dL AST (17-59) IU/L ALT (<50) IU/L Alkaline Phosphatase (38-126) U/L Total Protein (6.3-8.2) g/dL Albumin (3.5-5.0) g/dL Globulin (1.7-4.1) g/dL Albumin/Globulin Ratio (1.0-2.8) Lipase (23-300) U/L Urine Color Urine Appearance Urine pH (4.5-8.0) Ur Specific [place] (1.000-1.035) Urine Protein Urine Glucose (UA) Urine Ketones Urine Occult Blood (Negative) Urine Nitrate Urine Bilirubin Urine Urobilinogen Ur Leukocyte Esterase (NEGATIVE) Urine RBC (0-5/HPF) Urine WBC (0-5/HPF) Urine Bacteria (None) MDM Narrative Medical decision making narrative: Initial bladder scan showed very little retained urine. Patient was able to urinate a small amount that was prince blood. Was having quite a bit of abdominal discomfort. X-ray of his abdomen is consistent with constipation but no other signs of obstruction. Urinalysis shows no signs of infection. Bedside ultrasound performed by myself showed retained urine consistent more with a pproximately 500 cc of urine. A three-way catheter was placed. Placement of this catheter did confirm approximately 500 cc of urine. It was draining appropriately. He did have improvement of some lower abdominal discomfort. Patient was irrigated with approximately 7 L of fluid. He was still having blood in the urine. CT scan shows clot. I discussed the case with Dr. Cifuentes with Urology at [facility] who recommended placing a larger catheter and performing manual irrigation. Care turned over to day provider to follow-up and disposition. [0700] (Nils) Patient received in sign out from [Vanesa]. I have reviewed the clinical course and performed an independent history and physical exam. Patient has continued to drain, there is no gross hematuria though a very slight pinkish tinge. He has been observed for multiple hours, he is hemodynamically stable in absence of any symptoms at this time. His repeat blood work is unremarkable and there is no evidence of blood loss anemia. He feels great. He is established with the Urology office in the community. There is no indication for Flomax as he had a radical prostatectomy 20 years ago. There is no evidence of infection. Nursing has discussed techniques for irrigation at home. Return precautions including pain, fever, shaking chills, recurrence of gross hematuria or other bothersome symptoms discussed. Both patient and understand and agree with the diagnosis and plan Discharge Plan Departure Patient Disposition: Home Clinical Impression: Hematuria, Acute urinary retention Instructions: DI for Hematuria, DI for Urinary Retention in Men Activity Restrictions/Additional Instructions: *You have been diagnosed with [acute urinary retention and hematuria. As we discussed your lab work and repeat physical exam are very reassuring. Your bladder is draining appropriately and your no longer bleeding.] *What to do: *Please continue to take your regular medications as directed. *Please follow up with Dr. Dean next week, please call Wednesday and let them know you were seen in the Emergency Department and that we ask that you be seen in follow up. We will electronically transmit a record of today's note if your PCP is in our system *Return to Emergency Department if you should have any new, worsening or concerning symptoms, such as [fever greater than 101 F, shaking chills, worsening pain, persistent vomiting or other bothersome symptoms] Prescriptions: No Action methocarbamol 500 mg tablet 500 mg PO TID PRN (Reason: muscle pain) Qty: 20 0RF oxycodone-acetaminophen [Percocet] 5-325 mg tablet 1 tab PO Q6H PRN (Reason: pain) Qty: 10 0RF omeprazole 20 mg capsule,delayed release(DR/EC) 20 mg PO BID Qty: 60 0RF losartan 25 mg tablet See Rx Instructions .ROUTE .COMPLEX Qty: 90 3RF Dose Instruction: TAKE ONE TABLET BY MOUTH ONE TIME DAILY Rx Instructions: TAKE ONE TABLET BY MOUTH ONE TIME DAILY Referrals: Bill Dean MD [Physician] - Manjula Garcia DO [Primary Care Provider] - Stand Alone Forms: Patient Portal/API
[2022-09-25 22:31] LABS: Appearance Urine UA TURBID; Leukocyte Esterase Urine UA TRACE (NEGATIVE); Occult Blood Urine UA 3+ (Negative); pH Urine UA 6.5 (4.5-8.0)
[2022-09-25 22:32] LABS: Color Urine UA Dark Yellow
[2022-09-25 22:35] LABS: Bacteria Urine Occasional (0-1); RBC Urine >100/HPF (0-5/HPF); WBC Urine 0-1/HPF (0-5/HPF)
--- NOTE | 2022-09-25 22:45 | DI.RAD.S_ITS ---
PROCEDURE: XR ABDOMEN 1V INDICATIONS: lower abd pain w hx of constipation TECHNIQUE: One view of the abdomen acquired. COMPARISON: None. FINDINGS: Surgical changes and devices: Pacer leads are partially seen. Lower pelvis postoperative clips can be seen. Bowel: Bowel gas pattern is normal. There is a moderate amount of stool seen within the colon. Soft tissues: No suspicious abdominal calcifications. Visualized solid organ contours appear normal in size. Atherosclerotic calcification is noted. Bones: No suspicious bony lesions. Age-appropriate bony degenerative changes are seen. IMPRESSION: There is a moderate amount of stool seen within the colon, which is consistent with the given clinical history of constipation. Dictated by: Juan C Sheets M.D. on 09/25/2022 at 23:01 Approved by: Juan C Sheets M.D. on 09/25/2022 at 23:01
[2022-09-25] MEDS: PHENAZOPYRIDINE 100 MG TABLET PO (23:37)
[2022-09-25] MEDS: HYDROMORPHONE 0.5 MG INJ IV (23:37)
[2022-09-25] MEDS: SODIUM CHLORIDE 0.9% 1,000 ML 1000 ML IV (23:37)
[2022-09-25 23:43] LABS: Add Manual Diff / Slide Review NO; Basophils Absolute Auto 100 /uL (0-100); Basophils Percent Auto 0.9 % (0-2); Eosinophils Absolute Auto 200 /uL (0-450); Eosinophils Percent Auto 2.2 % (2-4); Hematocrit 44.7 % (41-53); Hemoglobin 15.3 g/dL (13.5-17.5); Lymphocytes Absolute Auto 1800 /uL (1100-4500); Lymphocytes Percent Auto 22.6 % (25-40); Mean Corpuscular HGB Conc 34.2 % (30-36); Mean Corpuscular Hemoglobin 33.5 PG (26-34); Mean Corpuscular Volume 98.1 fL (80-100); Monocytes Absolute Auto 1200 /uL (0-900); Monocytes Percent Auto 14.4 % (3-14); Neutrophils Absolute Auto 4800 /uL (1500-7000); Neutrophils Percent Auto 59.9 % (50-75); Platelet Count 237 X10^3/uL (150-400); Red Blood Cell Count 4.56 X10^6/uL (4.5-5.9); Red Cell Distribution Width 12.9 % (11.6-14.8); White Blood Cell Count 8.1 X10^3/uL (4.5-11.0)
[2022-09-25 23:53] LABS: Alanine Aminotransferase 38 IU/L (<50); Albumin 4.7 g/dL (3.5-5.0); Albumin Globulin Ratio 1.3 (1.0-2.8); Alkaline Phosphatase 89 U/L (38-126); Aspartate Aminotransferase 40 IU/L (17-59); BUN Creatinine Ratio 24.6 (6-22); Bilirubin Total 1.2 mg/dL (0.2-1.3); Blood Urea Nitrogen 29 mg/dL (9-20); Calcium 8.8 mg/dL (8.4-10.2); Carbon Dioxide 19 mmol/L (22-32); Chloride 101 mmol/L (98-107); Estimated Glomerular Filt Rate > 60 mL/min (>60); Globulin 3.7 g/dL (1.7-4.1); Glucose 101 mg/dL (80-110); HEMOLYSIS 17 (0-50); Lipase 129 U/L (23-300); Potassium 4.4 mmol/L (3.4-5.1); Sodium 132 mmol/L (137-145); Total Protein 8.4 g/dL (6.3-8.2)
[2022-09-26] VITALS (20 sets, daily range): BP systolic 167–202; BP diastolic 93–116; PULSE 68–84; RESP 18–20; O2SAT 94–97
[2022-09-26] MEDS: LIDOCAINE 2% (GLYDO) 6 ML GEL TOP (01:28)
[2022-09-26] MEDS: SODIUM CHLORIDE 0.9% 1,000 ML 1000 ML IV (01:28)
--- NOTE | 2022-09-26 02:21 | DI.CT.S_ITS ---
PROCEDURE: CT ABDOMEN PELVIS WO CON INDICATIONS: Hematuria, evaluate for clot in bladder TECHNIQUE: Axial sections were acquired from the lung bases to the pubic symphysis. Coronal and sagittal reformats were performed. For radiation dose reduction, the following was used: automated exposure control, adjustment of mA and/or kV according to patient size. COMPARISON: None. FINDINGS: Image quality: Excellent. Lung bases: Coarse bibasilar interstitial markings and part solid 4 mm left lower lobe subpleural nodule, 3/6. Gravitational changes present. Tortuous descending thoracic aorta. Heart: Mild cardiomegaly with dual lead pacemaker leads. Partially imaged coronary artery calcification. URINARY: Right Kidney: Three cortical and parapelvic renal cysts. No retained stones or hydronephrosis. Right Ureter: No hydroureter or ureteral calcification. Left Kidney: For exophytic cortical renal cysts. No hydronephrosis or stone. Left Ureter: No hydroureter or ureteral calculus. Bladder: The urinary bladder is decompressed and there is a Cooley catheter in place. There is high-density material dependently within the urinary bladder. There is protrusion along the anterior wall of the urinary bladder with ill-defined serosal surface. ABDOMEN: Liver: Scattered hepatic cysts. Gallbladder: Normal. Biliary ducts: Nondilated. Pancreas: Normal. Spleen: Normal. Adrenal Glands: No nodules. Stomach and Bowel: Stomach, small bowel loops, and colon are unremarkable. Occasional descending and sigmoid diverticulosis. Peritoneum: No abnormal intraperitoneal fluid. No free air. Ventral Wall: Tiny fat containing umbilical hernia. Abdominal Nodes: No enlarged retroperitoneal or mesenteric lymph nodes. Vessels: Aorta and inferior vena cava are normal in size. Moderate abdominal aortic atherosclerotic calcification. PELVIS: Pelvic Organs: Prostatectomy change. Pelvic Nodes: Unremarkable. Miscellaneous: No inguinal hernias are seen. Bones: No suspicious bone lesions or fractures. IMPRESSION: 1. High-density material dependently in the urinary bladder may be hemorrhage. No calcifications are seen. Consider hemorrhagic cystitis, trauma, occult intraluminal lesion. Cystoscopy may be helpful. 2. No evidence of other urinary tract obstruction or calcification. 3. Coarse lower lung interstitial markings and occasional nonspecific nodule. Correlate clinically and if there are risk factors, consider chest CT follow-up on an outpatient basis. 4. Final interpretation is concordant with preliminary report. Dictated by: Lulu Yañez M.D. on 09/26/2022 at 8:45 Approved by: Lulu Yañez M.D. on 09/26/2022 at 8:54
[2022-09-26 03:40] LABS: Hematocrit 40.5 % (41-53); Hemoglobin 13.9 g/dL (13.5-17.5)
--- NOTE | 2022-09-26 07:15 | PC.NURSE ---
0715, this RNs first interaction with patient. CBI, output is light pink and catheter flowing well. Pt is comfortable and at bedside.
--- NOTE | 2022-09-26 07:18 | PC.NURSE ---
After removing 16fr carrera cath a 24french [address] way cath was inserted with sterile technique without difficulty.it was irrigated with 250 ml sterile water and large dark red clots noted,urine returned clear and a 3000 ml bladder irrigant was started and returning clear drainage.report given to Marcellus JOHN.
== END 2022-09-26 08:30 | disposition home or self-care (01) ==
PROVIDERS: Emergency Medicine; Emergency Provider Emergency Medicine; PCP Family Medicine
DX: R33.9 Retention of urine, unspecified (principal); R31.9 Hematuria, unspecified
CPT/HCPCS: 36415; 51798; 74018; 74176; 80048; 80053; 81001; 83690; 85014; 85018; 85025; 87086; 96374; 99283; 99284; J1170

== ENCOUNTER 2022-09-26 20:36 | Emergency (ER) | payer MEDICARE, SELFPAY ==
[2022-09-26 20:38] VITALS: BP 149/80; PULSE 70; RESP 18; TEMP 36.6; O2SAT 98; BMI 27.1
[2022-09-26 21:45] LABS: Add Manual Diff / Slide Review NO; Basophils Absolute Auto 0 /uL (0-100); Basophils Percent Auto 0.5 % (0-2); Eosinophils Absolute Auto 100 /uL (0-450); Hematocrit 39.6 % (41-53); Hemoglobin 13.8 g/dL (13.5-17.5); Lymphocytes Absolute Auto 1100 /uL (1100-4500); Lymphocytes Percent Auto 13.1 % (25-40); Mean Corpuscular HGB Conc 34.8 % (30-36); Mean Corpuscular Hemoglobin 33.9 PG (26-34); Mean Corpuscular Volume 97.2 fL (80-100); Monocytes Absolute Auto 1200 /uL (0-900); Monocytes Percent Auto 13.9 % (3-14); Neutrophils Absolute Auto 6100 /uL (1500-7000); Neutrophils Percent Auto 71.5 % (50-75); Platelet Count 210 X10^3/uL (150-400); Red Blood Cell Count 4.07 X10^6/uL (4.5-5.9); Red Cell Distribution Width 12.8 % (11.6-14.8); White Blood Cell Count 8.5 X10^3/uL (4.5-11.0)
[2022-09-26 21:57] LABS: BUN Creatinine Ratio 23.8 (6-22); Blood Urea Nitrogen 19 mg/dL (9-20); Calcium 8.2 mg/dL (8.4-10.2); Carbon Dioxide 20 mmol/L (22-32); Chloride 103 mmol/L (98-107); Estimated Glomerular Filt Rate > 60 mL/min (>60); Glucose 120 mg/dL (80-110); Sodium 130 mmol/L (137-145)
[2022-09-26 22:11] LABS: HEMOLYSIS 17 (0-50)
--- NOTE | 2022-09-26 23:36 | ED.GENADULT ---
HPI - General Adult General Chief complaint: Urogenital-Male Stated complaint: Cath issues, bladder issues Time Seen by Provider: 09/26/22 20:50 Source: patient Mode of arrival: Ambulatory History of Present Illness HPI narrative: Patient is an 87-year-old male who was seen in the emergency department within the past 24-48 hours for hematuria. Had a urinary catheter placed. Had extensive irrigation. Was discharged home. He states that the catheter at home stopped working. His tried to flush it they were unable to get any urine out. He was getting some lower abdominal discomfort. He came back to the emergency department. Prior to my evaluation he had been seen by nursing staff. They attempted to flush the catheter but was actually when they deflated the balloon that it started to drain. The balloon was then deflated. He was irrigated. It is now running clear. Related Data Previous Rx's Medication Instructions Recorded omeprazole 20 mg capsule,delayed 20 mg PO BID #60 caps 07/17/21 release losartan 25 mg tablet See Rx Instructions .Route 12/22/21 .COMPLEX #90 tabs methocarbamol 500 mg tablet 500 mg PO TID PRN muscle pain #20 05/07/22 tabs oxycodone-acetaminophen 5 mg-325 1 tab PO Q6H PRN pain #10 tabs 05/07/22 mg tablet (Percocet) Allergies Allergy/AdvReac Type Severity Reaction Status Date / Time morphine [MORPHINE] Allergy Intermediate halluncinat Verified 09/09/21 12:19 ions Sulfa (Sulfonamide Allergy Mild fever Verified 09/09/21 12:19 Antibiotics) Review of Systems Constitutional Constitutional: Reports system reviewed and no additional complaints, except as documented Gastrointestinal Gastrointestinal: Reports system reviewed and no additional complaints, except as documented Genitourinary Genitourinary: Reports system reviewed and no additional complaints, except as documented Patient History Medical History Abnormal chest xray AV block (~2014) Chicken pox Gross hematuria Hearing loss Herpes (~1959) History of elevated PSA (~1992) History of prostate cancer Measles Mumps Osteoporosis Pacemaker Plantar warts (~2004) Prostate cancer (~1992) Tinnitus (~1972) Tubular adenoma Vertigo (~2007) Surgical History Anesthesia History of appendectomy (~1955) History of prostatectomy (~1992) Hx of total knee arthroplasty (~2021) Pacemaker (~2012) S/P ablation of atrial fibrillation Family History Father Cancer History of heart disease Mother Pneumonia Stroke Brother Prostate cancer Sister Autoimmune disease Sister Breast cancer Social History marital status: household members: spouse lives independently: Yes 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; 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) Smoking Status: Former smoker Tobacco: How many years used: 25 alcohol intake: current substance use type: marijuana (very rare) Smoking Status: Former smoker alcohol intake frequency: 0-2 drinks per day Substance Use Type: does not use Exam Initial Vital Signs Initial Vital Signs: Vital Signs Temperature 98 F 09/26/22 20:38 Pulse Rate 70 09/26/22 20:38 Respiratory Rate 18 09/26/22 20:38 Blood Pressure 149/80 H 09/26/22 20:38 Pulse Oximetry 98 09/26/22 20:38 Oxygen Delivery Method Room Air 09/26/22 20:38 GI Inspection: non-distended Other: Cooley catheter in place in his draining clear urine Course Orders Ordered: ED Orders 09/26/22 21:30 Basic Metabolic Panel Stat Complete Blood Count AUTO DIFF Stat Vital Signs Vital signs: Vital Signs - 8 hr 09/26/22 23:54 Temperature 97.8 F Pulse Rate 78 Respiratory Rate 16 Blood Pressure 146/80 H Pulse Oximetry 100 Oxygen Delivery Method Room Air Medical Decision Making Lab Data 09/26/22 21:30 09/26/22 21:30 Labs: Lab Results 09/26/22 09/26/22 Range/Units 21:30 21:30 WBC 8.5 (4.5-11.0) X10^3/uL RBC 4.07 L (4.5-5.9) X10^6/uL Hgb 13.8 (13.5-17.5) g/dL Hct 39.6 L (41-53) % MCV 97.2 (80-100) fL MCH 33.9 (26-34) PG MCHC 34.8 (30-36) % RDW 12.8 (11.6-14.8) % Plt Count 210 (150-400) X10^3/uL Neut % (Auto) 71.5 (50-75) % Lymph % (Auto) 13.1 L (25-40) % Wallace % (Auto) 13.9 (3-14) % Eos % (Auto) 1.0 L (2-4) % Baso % (Auto) 0.5 (0-2) % Neut # (Auto) 6100 (3110-5634) /uL Lymph # (Auto) 1100 (7158-7690) /uL Wallace # (Auto) 1200 H (0-900) /uL Eos # (Auto) 100 (0-450) /uL Baso # (Auto) 0 (0-100) /uL Sodium 130 L (137-145) mmol/L Potassium 4.0 (3.4-5.1) mmol/L Chloride 103 (98-107) mmol/L Carbon Dioxide 20 L (22-32) mmol/L BUN 19 (9-20) mg/dL Creatinine 0.80 (0.66-1.25) mg/dL Estimated GFR > 60 (>60) mL/min BUN/Creatinine Ratio 23.8 H (6-22) Glucose 120 H (80-110) mg/dL Calcium 8.2 L (8.4-10.2) mg/dL MDM Narrative Medical decision making narrative: Cooley catheter is draining clear urine. There was no signs of continued bleeding. Issue potentially could have been slight dislodgement of the catheter or maybe there was a small clot blocking the catheter. No further workup required in the emergency department during this visit. Will discharge patient home with current follow-up instructions. He expressed understanding and agreement with plan. Discharge Plan Departure Patient Disposition: Home Clinical Impression: Hematuria Instructions: DI for Hematuria Activity Restrictions/Additional Instructions: I do recommend that the beginning of next week you contact the urologist office for follow-up. Return to the emergency department for new or worsening symptoms. Prescriptions: No Action methocarbamol 500 mg tablet 500 mg PO TID PRN (Reason: muscle pain) Qty: 20 0RF oxycodone-acetaminophen [Percocet] 5-325 mg tablet 1 tab PO Q6H PRN (Reason: pain) Qty: 10 0RF omeprazole 20 mg capsule,delayed release(DR/EC) 20 mg PO BID Qty: 60 0RF losartan 25 mg tablet See Rx Instructions .ROUTE .COMPLEX Qty: 90 3RF Dose Instruction: TAKE ONE TABLET BY MOUTH ONE TIME DAILY Rx Instructions: TAKE ONE TABLET BY MOUTH ONE TIME DAILY Referrals: Manjula Garcia DO [Primary Care Provider] - Stand Alone Forms: Patient Portal/API
--- NOTE | 2022-09-26 23:49 | PC.NURSE ---
indwelling catheter in place from DC this AM, catheter flushed and irrigated
[2022-09-26 23:54] VITALS: BP 146/80; PULSE 78; RESP 16; TEMP 36.6; O2SAT 100
== END 2022-09-26 23:56 | disposition home or self-care (01) ==
PROVIDERS: Emergency Provider Emergency Medicine; PCP Family Medicine
DX: R31.9 Hematuria, unspecified (principal)
CPT/HCPCS: 36415; 80048; 85025; 99281; 99283

== ENCOUNTER → 2022-09-29 13:30 | Outpatient (CLI) | payer MEDICARE, SELFPAY | PROVIDERS: PCP Family Medicine; Visit Provider Urology | DX: R31.9 Hematuria, unspecified (principal); R33.8 Other retention of urine; R31.0 Gross hematuria; Z85.46 Personal history of malignant neoplasm of prostate; Z90.79 Acquired absence of other genital organ(s) | CPT/HCPCS: 51798; 81002; 87086; 99214 ==

== ENCOUNTER → 2022-10-09 08:24 | Outpatient (CLI) | payer MEDICARE, SELFPAY | PROVIDERS: PCP Family Medicine; Visit Provider Urology | DX: D49.4 Neoplasm of unspecified behavior of bladder (principal); R31.9 Hematuria, unspecified; R33.8 Other retention of urine; Z85.46 Personal history of malignant neoplasm of prostate | CPT/HCPCS: 52000; 81002; 87086; 99213 ==

== ENCOUNTER → 2022-10-22 10:33 | Outpatient (CLI) | payer MEDICARE, SELFPAY | PROVIDERS: PCP Family Medicine; Visit Provider Urology | DX: N32.9 Bladder disorder, unspecified (principal); R31.0 Gross hematuria; Z85.46 Personal history of malignant neoplasm of prostate; Z95.0 Presence of cardiac pacemaker | CPT/HCPCS: 81002; 87086; 99214 ==

== ENCOUNTER 2022-10-27 06:45 | Day surgery (SDC) | payer MEDICARE, SELFPAY ==
[2022-10-27] VITALS (7 sets, daily range): BP systolic 134–166; BP diastolic 87–99; PULSE 70; RESP 12–16; TEMP 35.9–36.9; O2SAT 95–99; BMI 27.5
--- NOTE | 2022-10-27 | PATH_ITS ---
[facility] Accession Number: [id number] No. of containers..02 Tissue . 01 Material submitted: . PART A: bladder, dome - BLADDER DOME PART B: bladder - BLADDER TUMOR . 01 Diagnosis: A. Urinary Bladder, Dome, Biopsy: High-grade papillary urothelial carcinoma, noninvasive. Muscularis propria not present in specimen. . B. Urinary Bladder, Biopsy: High-grade papillary urothelial carcinoma, noninvasive. Muscularis propria not present in specimen. See comment. [facility] 11/02/2022 1644 Local . 01 Comment: Specimen B exhibits very little stroma to assess for invasion. An *immunostain to broad spectrum cytokeratins (KELVIN) is performed, with the control stained appropriately, and shows only artifactual carryover of tumor cells into loose stromal tissue, but no definite keratin-positive invasive carcinoma cells. Initial and deeper sections are obtained and reviewed. . * This test was developed and its performance characteristics determined by [facility]. It has not been cleared or approved by the U.S. Food and Drug Administration. The FDA has determined that such clearance or approval is not necessary. This test is used for clinical purposes. It should not be regarded as investigational or for research. . 01 Electronically signed: . Nithya Oro MD, Pathologist NPI- [id number] . 01 Gross description: . A. Received in formalin labeled with the patient's name, and bladder dome' consists of multiple tobar soft tissue fragments aggregating to 0.5 x 0.4 x 0.1 cm. Filtered and submitted in A1. B. Received in formalin labeled with the patient's name, and bladder tumor consists of multiple tobar soft tissue fragments aggregating to 2.0 x 1.3 x 0.1 cm. Filtered and submitted in B1. ([id number]) /MRV 10/28/2022 1836 Local . 01 Pathologist provided ICD-10: C67.9 . 01 CPT . 483160, 158183, [id number] Specimen Comment: A courtesy copy of this report has been sent to [phone] Performed at: 01 [facility] [address] [place] [address] [address] [facility], [place], [place] [id number] MD Brian Bishop MD Phone: [phone]
[2022-10-27] MEDS: LACTATED RINGERS 1,000 ML 42 ML IV (07:26)
--- NOTE | 2022-10-27 07:34 | PM.PREOP ---
Pre-operative Note COVID-19 COVID-19 status: Not tested Criteria for continued procedure: Delay expected to result in less-positive ultimate med/surg outcome and Non-surgical alternatives not available or appropriate per current SOC Interval Note History & Physical reviewed/Exam performed by Physician: Yes Changes to H&P: No
[2022-10-27] MEDS: CEFAZOLIN 2 GM/100 ML PREMIX 100 ML IV (07:55)
--- NOTE | 2022-10-27 08:14 | SUR.OPER ---
Lithotomy on padded OR bed, head on pillow, right arm tucked and padded. Left arm secured on padded arm boards at <90 degrees abduction. Legs secured in padded yellow fins stirrups.
[2022-10-27] MEDS: WATER FOR INJECTION,STERILE 20 ML, mitoMYcin 20 MG INTRAVESIC (08:21)
--- NOTE | 2022-10-27 09:16 | P.OP_ITS ---
Procedure & Clinicians Procedure: Transurethral resection of bladder tumor (large) Same procedure as scheduled: Yes Indications: This very pleasant 87-year-old male who presented with complaints of gross hematuria. Through workup and at flexible cystoscopy he was noted to have new papillary lesions in his bladder particularly on the posterior left and then encompassing the dome of his bladder. In total the area of tumor was greater than 5 cm in patient presents at this time for Transurethral resection, bladder biopsy and instillation of mitomycin C. Surgeon: Bill Dean Click Yes if Unassisted: Yes Anesthesia Type: General Operative Notes Findings: Findings: Urethral meatus is normal urethra is normal along its length with normal mucosa, the sphincter as well coapted. The prostate is surgically absent. The ureteral orifices in normal position with clear efflux. On the posterolateral left there is a 2-2-1/2 cm tumor and in the dome there is a field of papillary lesions that are 3-1/2-4 cm in diameter. At the end of the procedure everything appeared well resected and or fulgurated. A [address] [place] [address] Cooley catheter was left in place with 14 cc in the balloon. In mitomycin was instilled and left in place as the patient was transferred to the post anesthesia care unit. Closure Type: not applicable Specimen(s): other (Biopsy dome of bladder, both posterolateral tumor.) Applied: catheter (Twenty-two [place] [address]oley catheter with 14 cc in balloon) Estimated Blood Loss (mL): 30 Blood products transfused: none Procedure in detail: Procedure in detail: After informed consent was obtained, the patient was identified and brought to the operating room where he was placed in the supine position on the table. He then had anesthesia induced and maintained. Ensuring an adequate level of anesthesia the patient was transitioned to the lithotomy position where he was prepped, draped, prepared for Transurethral procedure. After prepping, draping and ensuring an adequate level of anesthesia as well as following time-out a 22 [place] cystoscope was passed through the urethra and into the bladder where cystoscopy was performed with the 30 and 70 degree lens. Biopsy forceps was then inserted in the dome tumor was biopsied. The cystoscope was then exchanged for the continuous-flow resectoscope and using the button the dome tumors were fulgurated and destroyed. Then using the loop the posterolateral tumor was resected. The resectoscope was then exchanged for the cystoscope and using a Bugbee electrode the margins and points of bleeding were fulgurated and cauterized. The bladder was then drained filled drained filled and using the biopsy forceps the some of the tumor fragments which were adherent clot were dislodged and removed to be collected. Again the bladder was left full the scope was removed the 22 [place] catheter passed easily into the bladder where the balloon was filled with 14 cc of sterile water and placed to gravity drainage. The bladder was drained the mitomycin catheter plug was then inserted and the mitomycin instilled leaving the plug in place. Patient at this point was awakened and transferred to the postanesthesia care unit having tolerated the procedure well. There were no complications specimens were forwarded the pathology Complications: none Post-operative Condition: stable Disposition: PACU Plan for aftercare: After mitomycin dwell time patient will be discharged to home with a Cooley catheter to follow up in my office in 10-14 days.
[2022-10-27] MEDS: OXYBUTYNIN 5 MG TABLET PO (09:46)
[2022-10-27] MEDS: PHENAZOPYRIDINE 100 MG TABLET 200 MG PO (09:46)
[2022-10-27] MEDS: ACETAMINOPHEN 325 MG TABLET 650 MG PO (10:09)
--- NOTE | 2022-10-27 11:12 | SUR.PHASEII ---
1030: Mitomcyn drained from urethral catheter as ordered and per protocol. Patient tolerated well. vss. Pain to bladder eased post draining.
== END 2022-10-27 11:06 | disposition home or self-care (01) ==
PROVIDERS: PCP Family Medicine; Referring Provider Urology; Visit Provider Urology
PROC: 0TBB8ZZ Excision of Bladder, Via Natural or Artificial Opening Endoscopic (ICD-10-PCS; CPT 52240; principal; 2022-10-27 07:45)
DX: C67.9 Malignant neoplasm of bladder, unspecified (principal)
CPT/HCPCS: 52240; J0690; J2405; J2704; J3010; J9280

== ENCOUNTER → 2022-12-02 12:05 | Outpatient (CLI) | payer MEDICARE, SELFPAY | PROVIDERS: PCP Family Medicine; Visit Provider Urology | DX: C67.8 Malignant neoplasm of overlapping sites of bladder (principal); R31.0 Gross hematuria; N32.9 Bladder disorder, unspecified; R82.81 Pyuria; Z87.440 Personal history of urinary (tract) infections; Z90.79 Acquired absence of other genital organ(s); Z85.46 Personal history of malignant neoplasm of prostate; Z95.0 Presence of cardiac pacemaker | CPT/HCPCS: 81002; 87086; 99214 ==

== ENCOUNTER 2022-12-07 10:24 | Day surgery (SDC) | payer MEDICARE, SELFPAY ==
[2022-12-02 12:20] VITALS: BMI 31.0
[2022-12-07] MEDS: LACTATED RINGERS 1,000 ML 21 ML IV (11:12)
[2022-12-07 11:17] VITALS: BP 153/95; PULSE 70; RESP 18; TEMP 35.9; O2SAT 98; BMI 31.0
--- NOTE | 2022-12-07 12:02 | PM.PREOP ---
Pre-operative Note COVID-19 COVID-19 status: Not tested Criteria for continued procedure: Non-surgical alternatives not available or appropriate per current SOC Interval Note History & Physical reviewed/Exam performed by Physician: Yes Changes to H&P: No
--- NOTE | 2022-12-07 12:45 | SUR.OPER ---
Lithotomy on padded OR bed, head on pillow, arms secured on padded arm boards at <90 degrees abduction. Legs secured in padded yellow fins stirrups.
[2022-12-07] MEDS: CEFAZOLIN 2 GM/100 ML PREMIX 100 ML IV (12:48)
[2022-12-07 12:54] VITALS: BP 89/57; PULSE 70; RESP 12; TEMP 36; O2SAT 96
[2022-12-07 13:00] VITALS: BP 99/60; PULSE 70; RESP 12; O2SAT 98
--- NOTE | 2022-12-07 13:01 | PM.OP.1 ---
Procedure & Clinicians Procedure: Cystoscopy Same procedure as scheduled: Yes Indications: This very pleasant 87-year-old male had undergone Transurethral resection of bladder tumor which was quite extensive and presents this time for a second-look procedure 6 weeks after his 1st. This is to ensure that there is no recurrent tumor and or persistent tumor and or need for biopsy or lesions that need further destruction. Surgeon: Bill Dean Click Yes if Unassisted: Yes Anesthesia Type: General Operative Notes Findings: Urethra normal, urethral meatus normal, sphincter as well coapted. Prostate is surgically absent ureteral orifices normal position with clear efflux. On the lateral and anterior left lateral wall is eschar from the previous resection. The areas appeared to be healing well without evidence of recurrence, persistence or suspicious areas that would need further biopsy. The range of the bladder mucosa is normal without evidence of papillary lesion, erythematous or velvety lesion, any worrisome finding.. These are very favorable findings with the patient. Closure Type: not applicable Specimen(s): none sent Prosthetic devices, grafts, tissues, transplants, or devices: None Estimated Blood Loss (mL): 0 Blood products transfused: none Procedure in detail: Procedure in detail: After informed consent was obtained, the patient was identified and brought to the operating room worries placed in his supine position on the operative table. Once their anesthesia was induced and maintained. Ensuring an adequate level of anesthesia the patient was transitioned to the lithotomy position where he was prepped, draped and prepared for Transurethral procedure. After prepping, draping, ensuring an adequate level of anesthesia and time-out a 22 [place] cystoscope was passed through the urethra and into the bladder where cystoscopy was performed with the 30 and 70 degree lens. Given the favorable findings the bladder was drained the scope was removed and the patient was awakened having tolerated the procedure well patient was then transferred to the postanesthesia care unit for recovery to be discharged to home. There were no complications and the patient tolerated the procedure well. Complications: none Post-operative Condition: stable Disposition: PACU Plan for aftercare: Patient to follow up my office in approximately 10-14 days
[2022-12-07 13:05] VITALS: BP 104/65; PULSE 70; RESP 13; O2SAT 97
[2022-12-07 13:10] VITALS: BP 123/81; PULSE 70; RESP 10; O2SAT 96
[2022-12-07 13:14] VITALS: BP 137/81; PULSE 70; RESP 12; O2SAT 95
== END 2022-12-07 13:30 | disposition home or self-care (01) ==
PROVIDERS: PCP Family Medicine; Referring Provider Urology; Visit Provider Urology
PROC: 0TBB8ZZ Excision of Bladder, Via Natural or Artificial Opening Endoscopic (ICD-10-PCS; CPT 52000; principal; 2022-12-07 12:00)
DX: C67.9 Malignant neoplasm of bladder, unspecified (principal); Z90.79 Acquired absence of other genital organ(s); Z95.0 Presence of cardiac pacemaker
CPT/HCPCS: 52000; 82962; J0690; J1100; J2405; J2704; J3010

== ENCOUNTER → 2023-01-02 10:31 | Outpatient (CLI) | payer MEDICARE, SELFPAY ==
[2023-01-02 10:46] LABS: Appearance Urine UA SL CLOUDY; Bilirubin Urine UA NEGATIVE (NEGATIVE); Color Urine UA YELLOW; Glucose Urine UA NEGATIVE (Negative); Ketones Urine UA NEGATIVE (NEGATIVE); Leukocyte Esterase Urine UA 1+ (NEGATIVE); Nitrite Urine UA NEGATIVE (Negative); Occult Blood Urine UA NEGATIVE (Negative); Protein Urine UA NEGATIVE (Negative); Specific Gravity Urine UA 1.025 (1.000-1.035); pH Urine UA 5.5 (4.5-8.0)
[2023-01-02 11:03] LABS: Bacteria Urine Few (2-10); Culture Indicated Urine Specimen Cultured; RBC Urine 0-1/HPF (0-5/HPF); Squamous Epithelial Cell Urine 0-1 /HPF (0-5/HPF); WBC Urine 30-100/HPF (0-5/HPF)
== END ==
PROVIDERS: PCP Family Medicine; Referring Provider Urology; Visit Provider Urology
DX: R31.0 Gross hematuria (principal)
CPT/HCPCS: 81001; 87086

== ENCOUNTER → 2023-02-07 12:04 | Outpatient (CLI) | payer MEDICARE, SELFPAY | PROVIDERS: PCP Family Medicine; Visit Provider Physician Assistant | DX: R30.0 Dysuria (principal) | CPT/HCPCS: 87086 ==

== ENCOUNTER 2023-02-12 12:31 | Emergency (ER) | payer MEDICARE, SELFPAY ==
[2023-02-12 12:56] VITALS: BP 200/100; PULSE 70; RESP 18; TEMP 36.6; O2SAT 99; BMI 27.8
[2023-02-12 13:57] LABS: Bacteria Urine Few (2-10); Culture Indicated Urine Specimen Cultured; RBC Urine 10-30/HPF (0-5/HPF); Squamous Epithelial Cell Urine 1-5 /HPF (0-5/HPF); WBC Urine 30-100/HPF (0-5/HPF)
--- NOTE | 2023-02-12 15:27 | ED_ITS ---
HPI - Male Genitourinary <Julian Siegel PA-C - Last Filed: 02/12/23 15:48> General Chief complaint: Urogenital-Male Stated complaint: SEVERE BLADDER PAIN/HAS BLADDER CANCER Time Seen by Provider: 02/12/23 15:27 Source: patient Mode of arrival: Ambulatory History of Present Illness HPI Narrative: This is a 87-year-old male presents emergency department due to increased urinary frequency as well as a ?burning? to the tip of his penis for the last 7 days. He denies any penile discharge or testicular pain. Denies any fevers or lower back pain. Does report some mild discomfort to the suprapubic area. Recently had a cystoscopy with his urologist proximally 3 weeks ago. Has a follow up appointment with his urologist in 5 days. Related Data Previous Rx's Medication Instructions Recorded losartan 25 mg tablet See Rx Instructions .Route 12/22/21 .COMPLEX #90 tabs nitrofurantoin 100 mg PO Q12H 7 days #14 caps 02/12/23 monohydrate/macrocrystals 100 mg capsule (Macrobid) Allergies Allergy/AdvReac Type Severity Reaction Status Date / Time morphine [MORPHINE] Allergy Intermediate halluncinat Verified 02/07/23 12:13 ions Sulfa (Sulfonamide Allergy Mild fever Verified 02/07/23 12:13 Antibiotics) Review of Systems <Julian Siegel PA-C - Last Filed: 02/12/23 15:48> Review of Systems Narrative: GENERAL: Denies chills, fatigue, malaise, fever, sweats. HEENT: Denies sinus pain, ear pain, sore throat, difficulty swallowing, dizziness. RESPIRATORY: Denies dyspnea, cough, wheezing, hemoptysis, sputum. CARDIOVASCULAR: Denies chest pain, palpitations, orthopnea, edema, GASTROINTESTINAL: Reports suprapubic abdominal pain Denies nausea, vomiting, diarrhea, constipation, melena. : Reports urinary frequency and dysuria dysuria, denies, incontinence, hematuria, urinary retention. MUSCULOSKELETAL: denies weakness, joint pain, or bony pain SKIN: Denies rash, skin lesions, or other NEUROLOGIC: Denies weakness, headache, numbness, change in speech, confusion, seizures, incoordination. PSYCHIATRIC: No concerning psychosocial issues. 12 point review of systems is negative except for those stated above Patient History <Julian Siegel PA-C - Last Filed: 02/12/23 15:48> Medical History Meningioma, cerebral History of urinary tract infection Bladder cancer Lesion of bladder Pacemaker History of prostate cancer Gross hematuria Tubular adenoma Hearing loss Plantar warts (~2004) Abnormal chest xray Osteoporosis Mumps Measles Herpes (~1959) Chicken pox Vertigo (~2007) Tinnitus (~1972) History of elevated PSA (~1992) AV block (~2014) Prostate cancer (~1992) Surgical History H/O transurethral resection of bladder tumor (TURBT) (10/27/22) Hx of bilateral cataract extraction (2017) Hx of total knee arthroplasty (~2021) Anesthesia History of appendectomy (~1955) History of prostatectomy (~1992) Pacemaker (~2012) S/P ablation of atrial fibrillation Family History Father Cancer History of heart disease Mother Pneumonia Stroke Brother Prostate cancer Sister Autoimmune disease Sister Breast cancer Social History marital status: household members: spouse lives independently: Yes education level: other occupational status: other Smoking Status: Former smoker Tobacco: How many years used: 25 alcohol intake: current substance use type: marijuana Smoking Status: Former smoker alcohol intake frequency: 0-2 drinks per day Substance Use Type: marijuana Exam <Julian Siegel PA-C - Last Filed: 02/12/23 15:48> Narrative Exam Narrative: GENERAL: Well-developed patient, in mild distress. HEAD: Atraumatic. Normocephalic. EYES: Pupils equal round and reactive. Extraocular motions intact. No scleral icterus. No injection or drainage. ENT: Nose without bleeding, purulent drainage. Throat without erythema, tonsillar hypertrophy or exudate. Airway patent. NECK: Trachea midline. Non tender CARDIOVASCULAR: Regular rate and rhythm without murmurs, gallops, or rubs. RESPIRATORY: Clear to auscultation. Breath sounds equal bilaterally. No wheezes, rales, or rhonchi. GASTROINTESTINAL: Very mild tenderness to palpation to suprapubic area EXTREMITIES: No edema or joint tenderness. BACK: Nontender without deformity or crepitance. No flank tenderness. NEURO: AOx3. SKIN: No rash or erythema of visible areas Initial Vital Signs Initial Vital Signs: Vital Signs Temperature 98 F 02/12/23 12:56 Pulse Rate 70 02/12/23 12:56 Respiratory Rate 18 02/12/23 12:56 Blood Pressure 200/100 H 02/12/23 12:56 Pulse Oximetry 99 02/12/23 12:56 Oxygen Delivery Method Room Air 02/12/23 12:56 <Rios Wray DO - Last Filed: 02/13/23 09:01> Initial Vital Signs Initial Vital Signs: Vital Signs Temperature 98 F 02/12/23 12:56 Pulse Rate 70 02/12/23 12:56 Respiratory Rate 18 02/12/23 12:56 Blood Pressure 200/100 H 02/12/23 12:56 Pulse Oximetry 99 02/12/23 12:56 Oxygen Delivery Method Room Air 02/12/23 12:56 Course <Julian Siegel PA-C - Last Filed: 02/12/23 15:48> Orders Ordered: ED Orders 02/12/23 13:28 Urine Culture Stat Urine Microscopic Stat 02/12/23 13:46 Urine Culture Stat Urine Microscopic Stat Vital Signs Vital signs: Vital Signs - 8 hr 02/12/23 12:56 02/12/23 15:35 Temperature 98 F Pulse Rate 70 70 Respiratory Rate 18 18 Blood Pressure 200/100 H 176/91 H Pulse Oximetry 99 98 Oxygen Delivery Method Room Air Room Air <Rios Wray DO - Last Filed: 02/13/23 09:01> Orders Ordered: ED Orders 02/12/23 13:28 Urine Culture Stat Urine Microscopic Stat 02/12/23 13:46 Urine Culture Stat Urine Microscopic Stat Vital Signs Vital signs: Vital Signs - 8 hr 02/12/23 12:56 02/12/23 15:35 Temperature 98 F Pulse Rate 70 70 Respiratory Rate 18 18 Blood Pressure 200/100 H 176/91 H Pulse Oximetry 99 98 Oxygen Delivery Method Room Air Room Air MDM - Male Genitourinary <TONE Hall Last Filed: 02/12/23 15:48> Lab Data Labs: Lab Results 02/12/23 Range/Units 13:28 Urine RBC 10-30/hpf H (0-5/HPF) Urine WBC 30-100/hpf H (0-5/HPF) Ur Squamous Epith Cells 1-5 /hpf (0-5/HPF) Urine Bacteria Few (2-10) H (None) Ur Culture Indicated? Specimen cultured Urine Dip Bedside Urine Glucose Negative Bedside Urine Bilirubin - Negative Bedside Urine Ketone - Negative Urine Specific [place] 1.015 Bedside Urine Occult Blood +++ Bedside Urine pH 6.0 Bedside Urine Protein + 30 Bedside Urine Urobilinogen - Negative Bedside Urine Nitrite - Negative Bedside Urine Leukocytes + 70 Esterase MDM Narrative Medical decision making narrative: MDM * differential diagnosis includes but not limited to simple UTI,, complicated UTI, pyelonephritis, gonorrhea, chlamydia * Prior records reviewed: Patient was seen here about 5 months ago due to catheter issues. Cooley catheter was irrigated and drainage was corrected. Patient was discharged home. Patient was last seen 2 weeks ago at his urologist's office for surveillance flexible cystoscopy to check healing after recent transurethral resection of bladder tumor. UA was negative at that time. * My lab interpretation: UA was positive for infection * My imgaing interpretation: None * Clinical Decision Rules/Scores evaluated: None * Independent discussions with: None ED Course: This is a 87-year-old male presents to the emergency department due to suspected UTI. Patient had a cystoscopy about 3 weeks ago which may have been the cause of the symptoms. UA was positive and will be sent for culture. Will treat with Macrobid. Patient has a urologist appointment in 5 days and recommended he follow up with them if symptoms continue. Shared Decision Making: Discussed plan with patient who is comfortable with the plan. Social Considerations: None Disposition: Discharged to home <Rios Wray DO - Last Filed: 02/13/23 09:01> Lab Data Labs: Lab Results 02/12/23 Range/Units 13:28 Urine RBC 10-30/hpf H (0-5/HPF) Urine WBC 30-100/hpf H (0-5/HPF) Ur Squamous Epith Cells 1-5 /hpf (0-5/HPF) Urine Bacteria Few (2-10) H (None) Ur Culture Indicated? Specimen cultured Urine Dip Bedside Urine Glucose Negative Bedside Urine Bilirubin - Negative Bedside Urine Ketone - Negative Urine Specific [place] 1.015 Bedside Urine Occult Blood +++ Bedside Urine pH 6.0 Bedside Urine Protein + 30 Bedside Urine Urobilinogen - Negative Bedside Urine Nitrite - Negative Bedside Urine Leukocytes + 70 Esterase Discharge Plan Departure Patient Disposition: Home Clinical Impression: Acute UTI Instructions: DI for Urinary Tract Infection (UTI) Activity Restrictions/Additional Instructions: Thank you for coming to the [facility] Emergency Department today. Please take the oral antibiotics as prescribed. It appears you have a UTI. Please follow up with your urologist if your symptoms continue. I hope you feel better soon. Please follow up with your primary care provider within a week if your symptoms continue. If you do not have a primary care provider please contact the [facility] Resource line at [phone]. They will ask some questions about your medical history and help you get set up with a provider in the community. Prescriptions: New nitrofurantoin monohyd/m-cryst [Macrobid] 100 mg capsule 100 mg PO Q12H 7 Days Qty: 14 0RF Rx Instructions: must administer with a meal/food No Action losartan 25 mg tablet See Rx Instructions .ROUTE .COMPLEX Qty: 90 3RF Dose Instruction: TAKE ONE TABLET BY MOUTH ONE TIME DAILY Rx Instructions: TAKE ONE TABLET BY MOUTH ONE TIME DAILY Referrals: Jasmeet Rome DO [Primary Care Provider] - Stand Alone Forms: Patient Portal/API ED Sign-out <Rios Wray DO - Last Filed: 02/13/23 09:01> Cosign ED Attending Remedios Attestation: I was immediately available in the department for consultation. Documentation has been reviewed. I agree with assessment and plan.
[2023-02-12 15:35] VITALS: BP 176/91; PULSE 70; RESP 18; O2SAT 98
== END 2023-02-12 15:55 | disposition home or self-care (01) ==
PROVIDERS: Emergency Medicine; Emergency Provider Physician Assistant Medical; PCP Family Medicine
DX: N39.0 Urinary tract infection, site not specified (principal)
CPT/HCPCS: 51798; 81003; 81015; 87086; 99283

== ENCOUNTER → 2023-02-17 09:52 | Outpatient (CLI) | payer MEDICARE, SELFPAY | PROVIDERS: PCP Family Medicine; Visit Provider Urology | DX: N39.0 Urinary tract infection, site not specified (principal); R30.0 Dysuria; Z85.51 Personal history of malignant neoplasm of bladder; N30.91 Cystitis, unspecified with hematuria; Z87.440 Personal history of urinary (tract) infections | CPT/HCPCS: 52000; 81002; 87086 ==

== ENCOUNTER → 2023-03-24 08:43 | Outpatient (CLI) | payer MEDICARE, SELFPAY | PROVIDERS: PCP Family Medicine; Visit Provider Urology | DX: C67.9 Malignant neoplasm of bladder, unspecified (principal); N32.9 Bladder disorder, unspecified; R31.0 Gross hematuria | CPT/HCPCS: 81002; 87086 ==

== ENCOUNTER → 2023-04-02 16:29 | Outpatient (CLI) | payer MEDICARE, SELFPAY ==
[2023-04-02 16:51] LABS: Estimated Glomerular Filt Rate 56 mL/min (>60)
== END ==
PROVIDERS: PCP Family Medicine; Referring Provider Radiology Diagnostic Radiology; Visit Provider Radiology Diagnostic Radiology
DX: C67.9 Malignant neoplasm of bladder, unspecified (principal)
CPT/HCPCS: 36415; 82565

== ENCOUNTER → 2023-04-05 10:52 | Outpatient (CLI) | payer MEDICARE, SELFPAY ==
--- NOTE | 2023-04-05 10:55 | DI.CT.S_ITS ---
PROCEDURE: CT IVP A/P W/WO INDICATIONS: Malignant neoplasm of urinary bladder TECHNIQUE: 5 mm thick noncontrast images acquired from the diaphragm to the symphysis pubis. After the administration of intravenous contrast, 5 mm thick images acquired from the diaphragm to the symphysis pubis after a 10-minute delay. 2 mm thick coronal and sagittal reformats were then performed of the kidneys and ureters. For radiation dose reduction, the following was used: automated exposure control, adjustment of mA and/or kV according to patient size. COMPARISON: [facility], CT, CT ABDOMEN PELVIS WO CON, 09/26/2022, 2:27. FINDINGS: Image quality: Excellent. Lung bases: Dependent ground-glass opacity which has the appearance of atelectasis. Calcified granuloma. Pacemaker leads. Heart size is enlarged. Small subcutaneous cyst at the left lower back. Urinary system: Both kidneys are normal in size, without hydronephrosis or nephrolithiasis on pre-contrast images. Several small low-density renal cysts. A few peripelvic/parapelvic cysts. No perinephric fat stranding. There is normal bilateral renal enhancement. Renal calyces appear normal in morphology when filled with contrast. Opacified portions of both ureters demonstrate normal caliber. Thickening at the anterior bladder, (4/195). No calcified bladder stones. Prostate gland is absent. Other solid organs: Liver is normal in size. Several hepatic cysts. Gallbladder is unremarkable. Biliary system is non dilated. Pancreas enhances normally. Spleen is normal in size and enhancement. No adrenal nodules. Peritoneum and bowel: Bowel loops demonstrate normal wall thickness and caliber. Diverticulosis. The appendix is not identified. No free fluid or air. Nodes and vessels: No retroperitoneal or mesenteric adenopathy by size criteria. Aorta and inferior vena cava are normal in size. Circumferential calcified atherosclerotic plaque. Abdominal wall: Small fat containing umbilical hernia. Pelvis: No pathologic free pelvic fluid. No inguinal hernias or adenopathy. Bones: No suspicious bony lesions. No vertebral body compression fractures. IMPRESSION: 1. No kidney stones. No hydronephrosis. 2. No solid renal mass. No upper urinary tract filling defect. 3. Thickening at the anterior left bladder. 4. No adenopathy. 5. Prostatectomy. Dictated by: Sukumar Mojica M.D. on 04/05/2023 at 13:47 Approved by: Sukumar Mojica M.D. on 04/05/2023 at 14:00
== END ==
PROVIDERS: PCP Family Medicine; Referring Provider Urology; Visit Provider Urology
DX: C67.9 Malignant neoplasm of bladder, unspecified (principal); N28.1 Cyst of kidney, acquired; K76.89 Other specified diseases of liver; K42.9 Umbilical hernia without obstruction or gangrene; I51.7 Cardiomegaly; K57.90 Diverticulosis of intestine, part unspecified, without perforation or abscess without bleeding; Z90.79 Acquired absence of other genital organ(s)
CPT/HCPCS: 74178; Q9967

== ENCOUNTER 2023-04-06 07:52 | Day surgery (SDC) | payer MEDICARE, SELFPAY ==
[2023-04-01 13:17] VITALS: BMI 31.0
[2023-04-06] VITALS (9 sets, daily range): BP systolic 99–142; BP diastolic 70–90; PULSE 70–84; RESP 11–19; TEMP 36.1–36.6; O2SAT 91–98; BMI 28.4
--- NOTE | 2023-04-06 | PATH_ITS ---
[facility] Accession Number: [id number] No. of containers..02 Tissue . 01 Material submitted: . PART A: bladder - CEPHALAD BLADDER BIOPSY PART B: bladder - BLADDER FLOOR BIOPSY . 01 Diagnosis: A. Bladder [place], Biopsy: Detached strips and fragments of non-invasive high-grade urothelial carcinoma. Negative for involvement of lamina propria. No lymphovascular invasion identified. No muscularis propria identified in the biopsy. . B. Bladder Floor, Biopsy: Urothelial carcinoma in situ. Negative for involvement of lamina propria. No lymphovascular invasion identified. No muscularis propria identified in the biopsy. [facility] 04/14/2023 1028 Local . 01 Comment: As part of routine quality assurance analyst, this case was also reviewed by Dr. Amisha Myers, who agrees with the interpretation. . A voice message was left for call back on 04/14/[address] Thomason. Case was signed out at 1330 hours. . 01 Electronically signed: . Carley Thomason MD, Pathologist NPI- [id number] . 01 Gross description: . Part A: CEPHALAD BLADDER BIOPSY: Received in formalin is 2 fragment(s) of tobar, soft tissue measuring 0.4 x 0.2 x 0.1 cm to 0.3 x 0.2 x 0.1 cm submitted entirely in 1 cassette(s) Part B: BLADDER FLOOR BIOPSY: Received in formalin is 2 fragment(s) of tobar, soft tissue measuring 0.4 x 0.1 x 0.1 cm to 0.3 x 0.1 x 0.1 cm submitted entirely in 1 cassette(s) /AAMariela 04/07/2023 0458 Local . 01 Pathologist provided ICD-10: C67.9, N32.9 . 01 CPT . 274704, 509960 Specimen Comment: A courtesy copy of this report has been sent to [phone] Performed at: [facility] [address] [place] [address], [place], [place] [id number] MD Brian Bishop MD Phone: [phone]
[2023-04-06] MEDS: LACTATED RINGERS 1,000 ML 42 ML IV (08:24)
[2023-04-06] MEDS: ACETAMINOPHEN 325 MG TABLET 975 MG PO (08:25)
--- NOTE | 2023-04-06 08:41 | PM.PREOP ---
Pre-operative Note COVID-19 COVID-19 status: Not tested Interval Note History & Physical reviewed/Exam performed by Physician: Yes Changes to H&P: No
[2023-04-06] MEDS: CEFAZOLIN 2 GM/100 ML PREMIX 100 ML IV (09:03)
--- NOTE | 2023-04-06 09:23 | SUR.OPER ---
Lithotomy on padded OR bed, head on pillow, arms secured on padded arm boards at <90 degrees abduction. Legs secured in padded yellow fins stirrups.
--- NOTE | 2023-04-06 09:39 | P.OP_ITS ---
Procedure & Clinicians Procedure: Cystoscopy with bladder biopsy and fulguration Same procedure as scheduled: Yes Indications: This 87-year-old male with a history of bladder cancer presented for surveillance cystoscopy with complaint of increased irritative symptoms at the time of flexible cystoscopy had what appeared to be either CIS and or inflammatory changes in his bladder and presents this time for bladder biopsy and fulguration. At that time he had no recurrence of his papillary bladder cancer. Surgeon: Bill Dean Click Yes if Unassisted: Yes Anesthesia Type: General Operative Notes Findings: Findings: At cystoscopy urethral meatus was normal urethra is normal along its length and the mucosa was normal. Prostate was surgically absent. On the upper left there was scar from previous resection which appeared well healed ureteral orifices in normal position with clear efflux. Particularly in the dome there was an erythematous almost ulcerative appearing lesion. This did appear improved compared to what was noted at the time of flexible cystoscopy. There were other patchy areas particularly on the bladder floor the anterior or cephalad bladder was biopsied as was the bladder floor. The other areas did appear improved again compared to the flexible cystoscopy performed in the office. Closure Type: not applicable Specimen(s): other (Biopsy lesion cephalad bladder, biopsy lesion bladder floor.) Prosthetic devices, grafts, tissues, transplants, or devices: None Estimated Blood Loss (mL): 5 Blood products transfused: none Procedure in detail: Procedure in detail: After informed consent was obtained, the patient was identified and brought to the operating room where he was placed in his supine position on the table. Once there he had anesthesia induced and maintained. Showing an adequate level of anesthesia the patient was transitioned to a lithotomy position where he was prepped, draped and prepared for Transurethral procedure. Once again ensuring an adequate level of anesthesia, after antibiotics, after prepping, draping and time-out a 22 English cystoscope was passed through the urethra and into the bladder where cystoscopy was performed. The biopsy forceps was inserted and 2 samples taken from the anterior lesion and 2 samples from the bladder floor lesion. Bugbee electrode was then inserted points of bleeding were controlled with electrocautery in the margin of the biopsied area was fulgurated as was the base. The bladder was then filled and drained filled and drained hemostasis remained good and at this point the bladder was drained the scope was removed the patient was awakened having tolerated the procedure well to be transferred to the postanesthesia care unit for recovery and then discharged to home to follow up my office in approximately 10 days. There were no complications the patient did tolerate the procedure well Complications: none Post-operative Condition: stable Disposition: PACU Plan for aftercare: Follow-up my office in approximately 10 days with biopsy results.
== END 2023-04-06 10:55 | disposition home or self-care (01) ==
PROVIDERS: PCP Family Medicine; Referring Provider Urology; Visit Provider Urology
PROC: 0TJB8ZZ Inspection of Bladder, Via Natural or Artificial Opening Endoscopic (ICD-10-PCS; CPT 52000; principal; 2023-04-06 09:00)
DX: C67.9 Malignant neoplasm of bladder, unspecified (principal)
CPT/HCPCS: 52204; J0690; J1100; J2405; J2704; J3010

== ENCOUNTER → 2023-04-15 10:46 | Outpatient (CLI) | payer MEDICARE, SELFPAY | PROVIDERS: PCP Family Medicine; Visit Provider Urology | DX: C67.8 Malignant neoplasm of overlapping sites of bladder (principal); C61 Malignant neoplasm of prostate; R30.0 Dysuria; Z87.440 Personal history of urinary (tract) infections | CPT/HCPCS: 81002; 87086; 99215 ==

== ENCOUNTER → 2023-05-05 11:11 | Outpatient (CLI) | payer MEDICARE, SELFPAY | PROVIDERS: PCP Family Medicine; Visit Provider Urology | DX: C67.8 Malignant neoplasm of overlapping sites of bladder (principal); Z87.440 Personal history of urinary (tract) infections; Z90.79 Acquired absence of other genital organ(s); Z85.46 Personal history of malignant neoplasm of prostate; Z95.0 Presence of cardiac pacemaker | CPT/HCPCS: 81002; 87086; 99213 ==

== ENCOUNTER → 2023-05-07 09:09 | Outpatient (CLI) | payer MEDICARE, SELFPAY | PROVIDERS: PCP Family Medicine; Visit Provider Urology | DX: Z87.440 Personal history of urinary (tract) infections (principal) | CPT/HCPCS: 87086 ==

== ENCOUNTER → 2023-05-12 09:18 | Outpatient (CLI) | payer MEDICARE, SELFPAY | PROVIDERS: PCP Family Medicine; Visit Provider Urology | DX: Z87.440 Personal history of urinary (tract) infections (principal) | CPT/HCPCS: 87086 ==

== ENCOUNTER → 2023-05-19 09:19 | Outpatient (CLI) | payer MEDICARE, SELFPAY | PROVIDERS: PCP Family Medicine; Visit Provider Urology | DX: C67.9 Malignant neoplasm of bladder, unspecified (principal); R31.0 Gross hematuria; Z87.440 Personal history of urinary (tract) infections | CPT/HCPCS: 51720; 81002; 87086; J9030 ==

== ENCOUNTER → 2023-05-26 09:18 | Outpatient (CLI) | payer MEDICARE, SELFPAY | PROVIDERS: PCP Family Medicine; Visit Provider Urology | DX: C67.9 Malignant neoplasm of bladder, unspecified (principal); N32.9 Bladder disorder, unspecified; R31.0 Gross hematuria; Z87.440 Personal history of urinary (tract) infections | CPT/HCPCS: 51720; 81002; 87086; J9030 ==

== ENCOUNTER → 2023-06-02 09:14 | Outpatient (CLI) | payer MEDICARE, SELFPAY | PROVIDERS: PCP Family Medicine; Visit Provider Urology | DX: C67.9 Malignant neoplasm of bladder, unspecified (principal); Z87.440 Personal history of urinary (tract) infections | CPT/HCPCS: 51720; 81002; 87086; J9030 ==

== ENCOUNTER → 2023-06-09 09:11 | Outpatient (CLI) | payer MEDICARE, SELFPAY | PROVIDERS: PCP Family Medicine; Visit Provider Urology | DX: C67.9 Malignant neoplasm of bladder, unspecified (principal); Z87.440 Personal history of urinary (tract) infections | CPT/HCPCS: 87086 ==

== ENCOUNTER → 2023-08-06 09:42 | Outpatient (CLI) | payer MEDICARE, SELFPAY | PROVIDERS: PCP Family Medicine; Visit Provider Urology | DX: C67.9 Malignant neoplasm of bladder, unspecified (principal); Z85.46 Personal history of malignant neoplasm of prostate; Z87.440 Personal history of urinary (tract) infections; Z95.0 Presence of cardiac pacemaker; Z90.79 Acquired absence of other genital organ(s) | CPT/HCPCS: 52000; 81002; 87086; 99214 ==

== ENCOUNTER 2023-08-10 10:56 | Day surgery (SDC) | payer MEDICARE, SELFPAY ==
[2023-08-09 10:38] VITALS: BMI 28.5
[2023-08-10] VITALS (9 sets, daily range): BP systolic 153–169; BP diastolic 84–118; PULSE 70–95; RESP 12–18; TEMP 36.2–36.6; O2SAT 94–99; BMI 28.5
--- NOTE | 2023-08-10 | PATH_ITS ---
[facility] Accession Number: [id number] No. of containers..02 Tissue . 01 Material submitted: . PART A: bladder - L POSTERIOR TUMOR PART B: bladder neck - L BLADDER NECK TUMOR . 01 Diagnosis: A. URINARY BLADDER, LEFT POSTERIOR, BIOPSY: Noninvasive papillary urothelial carcinoma, high grade. Muscularis propria not present in specimen. Negative for lymphovascular invasion. . B. URINARY BLADDER, LEFT SIDE OF NECK, BIOPSY: Noninvasive papillary urothelial carcinoma, high grade. Muscularis propria not present in specimen. Negative for lymphovascular invasion. [facility] 08/13/2023 1253 Local . 01 Electronically signed: . Nithya Oro MD, Pathologist NPI- [id number] . 01 Gross description: . Part A: L POSTERIOR TUMOR: Received in formalin are 2 fragment(s) of tobar, soft tissue measuring 0.4 x 0.3 x 0.2 cm to 0.6 x 0.5 x 0.3 cm submitted entirely in 1 cassette(s) Part B: L BLADDER NECK TUMOR: Received in formalin are 4 fragment(s) of tobar, soft tissue measuring 0.1 x 0.1 x 0.1 cm to 0.4 x 0.4 x 0.2 cm submitted entirely in 1 cassette(s) /BASSEM 08/11/2023 1859 Local . 01 Pathologist provided ICD-10: C67.9 . 01 CPT . 578902, [id number] Specimen Comment: A courtesy copy of this report has been sent to [phone] Performed at: 01 [facility] [address] [place] [address] [address], [place], [place] [id number] MD Brian Bishop MD Phone: [phone]
[2023-08-10] MEDS: LACTATED RINGERS 1,000 ML 21 ML IV (11:31)
--- NOTE | 2023-08-10 12:00 | PM.PREOP ---
Pre-operative Note COVID-19 COVID-19 status: Not tested Interval Note History & Physical reviewed/Exam performed by Physician: Yes Changes to H&P: No
[2023-08-10] MEDS: CEFAZOLIN 2 GM/100 ML PREMIX 100 ML IV (13:33)
--- NOTE | 2023-08-10 14:03 | SUR.OPER ---
Lithotomy on padded OR bed, head on pillow, arms secured on padded arm boards at <90 degrees abduction. Legs secured in padded yellow fins stirrups.
--- NOTE | 2023-08-10 14:29 | PM.OP.1 ---
Procedure & Clinicians Procedure: Transurethral resection of bladder tumor medium with fulguration/cautery and instillation of mitomycin. Same procedure as scheduled: Yes Indications: This 88-year-old male with known bladder cancer had undergone induction BCG and returns for surveillance cystoscopy where he was noted to have 2 recurrent tumors 1 of which was probably a cm and a half to 2 cm in the other was 2-1/2 cm. There were other areas of erythema but no other tumor the patient presents this time for resection of these tumors and instillation of mitomycin. Surgeon: Bill Dean Click Yes if Unassisted: Yes Anesthesia Type: General Operative Notes Findings: Findings: Urethral meatus and urethra normal along its length with normal mucosa the sphincter as well coapted, the prostate is surgically absent the ureteral orifices in normal position and clear efflux. On the posterior left there is the cm and a half to 2 cm tumor which is papillary and appears low-grade at the bladder neck is a larger tumor 2-1/2 to slightly greater than 2-1/2 cm. Within the bladder there was erythema inflammatory changes but no other papillary lesions or worrisome lesions were noted. The area that had previously been resected exhibits scar and appears well healed. There were no other significant abnormalities. The patient had a [address] [place] [address] catheter placed and mitomycin instilled in his bladder. Closure Type: not applicable Specimen(s): other (1. Posterior left bladder tumor 2. Left bladder neck tumor. ) Prosthetic devices, grafts, tissues, transplants, or devices: Twenty-two [place] [address] catheter 14 cc in the balloon. Applied: catheter (Twenty-two [place] [address] catheter with 14 cc in the balloon) Estimated Blood Loss (mL): 10 Blood products transfused: none Procedure in detail: Procedure in detail: After informed consent was obtained, the patient was identified brought to the operating room where he was placed in a supine position on the table. Once their anesthesia was induced and maintained. Ensuring an adequate level of anesthesia the patient was transitioned to the lithotomy position where he was prepped, draped, prepared for Transurethral procedure. After prepping, draping, ensuring an adequate level of anesthesia, time-out, administration of antibiotics a 22 [place] cystoscope was passed through the urethra and into the bladder. Cystoscopy is performed and the findings as above noted. The biopsy forceps was then inserted and the posterior left tumor which had a nice pedicle was resected. The Bugbee electrode was inserted hemostasis was achieved and the margin around the base of the tumor was fulgurated. There were no more papillary elements after this the biopsy forceps once again inserted and the larger tumor at the bladder neck was sequentially resected. Bugbee electrode was once again inserted and hemostasis achieved in the margins fulgurated. The left ureteral orifice identified and was intact as was the right ureteral orifice. Cystoscopy was once again performed and again only areas of erythema there were a couple of areas with who is in the dome which were cauterized establishing hemostasis. The bladder was filled drained filled drained and hemostasis remained good and the bladder was left full scope removed. Specimens were forwarded to pathology in formalin. The 22 [place] catheter was passed through the urethra and into the bladder with the balloon was filled with 14 cc of sterile water. It was placed to gravity drainage in the bladder was drained completely. The chemotherapy catheter plug was then put in place and then mitomycin instilled within the bladder. The catheter plug was left in place in the syringe was removed. This point the patient was awakened having tolerated the procedure well to be transferred to the postanesthesia care unit for recovery there were no complications. Complications: none Post-operative Condition: stable Disposition: PACU Plan for aftercare: Patient will be discharged to home after mitomycin indwelling time to follow up my office next Wednesday for voiding trial.
--- NOTE | 2023-08-10 15:02 | SUR.PHASEI ---
Upon arrival to PACU Dr. Pearl notified of elevated BP. No new orders.
[2023-08-10] MEDS: PHENAZOPYRIDINE 100 MG TABLET 200 MG PO (15:32)
[2023-08-10] MEDS: OXYBUTYNIN 5 MG TABLET PO (15:32)
[2023-08-10] MEDS: HYDROMORPHONE 1 MG INJ IV (15:37)
== END 2023-08-10 16:35 | disposition home or self-care (01) ==
PROVIDERS: PCP Family Medicine; Referring Provider Urology; Visit Provider Urology
PROC: 0TBB8ZZ Excision of Bladder, Via Natural or Artificial Opening Endoscopic (ICD-10-PCS; CPT 52235; principal; 2023-08-10 12:15)
DX: C67.9 Malignant neoplasm of bladder, unspecified (principal)
CPT/HCPCS: 52235; 36415; J0690; J1100; J1170; J2405; J2704; J3010

== ENCOUNTER → 2023-08-16 14:42 | Outpatient (CLI) | payer MEDICARE, SELFPAY | PROVIDERS: PCP Family Medicine; Visit Provider Urology | DX: R33.9 Retention of urine, unspecified (principal); Z87.440 Personal history of urinary (tract) infections | CPT/HCPCS: 51798; 81002; 87086 ==

== ENCOUNTER → 2023-08-19 09:41 | Outpatient (CLI) | payer MEDICARE, SELFPAY ==
[2023-08-19 10:08] LABS: Appearance Urine UA CLEAR; Bilirubin Urine UA NEGATIVE (NEGATIVE); Color Urine UA YELLOW; Glucose Urine UA NEGATIVE (Negative); Ketones Urine UA NEGATIVE (NEGATIVE); Leukocyte Esterase Urine UA 1+ (NEGATIVE); Nitrite Urine UA POSITIVE (Negative); Occult Blood Urine UA 3+ (Negative); Protein Urine UA 1+ (Negative)
[2023-08-19 10:30] LABS: Bacteria Urine Occasional (0-1); Culture Indicated Urine Specimen Cultured; RBC Urine 30-100/HPF (0-5/HPF); Squamous Epithelial Cell Urine 0-1 /HPF (0-5/HPF); Urine Volume 10mL (spun); WBC Urine 10-30/HPF (0-5/HPF)
== END ==
PROVIDERS: PCP Family Medicine; Visit Provider Urology
DX: Z87.440 Personal history of urinary (tract) infections (principal)
CPT/HCPCS: 81001; 87086

== ENCOUNTER → 2023-08-27 09:54 | Outpatient (CLI) | payer MEDICARE, SELFPAY | PROVIDERS: PCP Family Medicine; Visit Provider Urology | DX: Z87.440 Personal history of urinary (tract) infections (principal) | CPT/HCPCS: 87086 ==

== ENCOUNTER → 2024-04-28 12:17 | Outpatient (CLI) | payer MEDICARE, SELFPAY ==
[2024-04-28 13:02] LABS: Appearance Urine UA CLEAR; Bilirubin Urine UA NEGATIVE (NEGATIVE); Color Urine UA YELLOW; Glucose Urine UA NEGATIVE (Negative); Ketones Urine UA NEGATIVE (NEGATIVE); Leukocyte Esterase Urine UA NEGATIVE (NEGATIVE); Nitrite Urine UA NEGATIVE (Negative); Occult Blood Urine UA 2+ (Negative); Protein Urine UA TRACE (Negative); Urobilinogen Urine UA 0.2 E.U./dL (0.2)
[2024-04-28 13:09] LABS: Bacteria Urine Occasional (0-1); Culture Indicated Urine Cult Not Indicated; RBC Urine 5-10/HPF (0-5/HPF); Squamous Epithelial Cell Urine 1-5 /HPF (0-5/HPF); Urine Volume 10mL (spun); WBC Urine 1-5/HPF (0-5/HPF)
== END ==
PROVIDERS: PCP Family Medicine; Referring Provider Urology; Visit Provider Urology
DX: Z01.818 Encounter for other preprocedural examination (principal)
CPT/HCPCS: 81001

== ENCOUNTER → 2024-07-03 09:41 | Outpatient (CLI) | payer MEDICARE, SELFPAY ==
--- NOTE | 2024-07-03 09:43 | DI.RAD.S_ITS ---
PROCEDURE: XR DEXA AXIAL SKELETON INDICATIONS: osteopenia screening COMPARISON: [facility], CR, XR DEXA AXIAL SKELETON, 04/18/2020, 13:41. FINDINGS: Lumbar Spine: Bone mineral density 0.891 g/cm2, T score -1.3, compared to-2.4. It is noted current exam is L1 through L3 compared L1-2 on prior.. Left Femoral Neck: Bone mineral density 0.711 g/cm2, T score -1.2, compared to -1.8. Left Hip: Bone mineral density 0.937 g/cm2, T score 0, compared to -1.3. Fracture Risk Calculation (when applicable): 10-year fracture risk of a major osteoporotic fracture 6.1 percent and of a hip fracture 2.5 percent. (T score greater or equal to -1.0 to: NORMAL) (T score from -1.1 to -2.4: OSTEOPENIA) (T score less than or equal to -2.5: OSTEOPOROSIS) IMPRESSION: Overall improved bone mineral density with minimal to mild osteopenia. Follow-up guidelines as follows: Osteoporosis: Consider a repeat DEXA and Vertebral Fracture Assessment (VFA) exam in 2 years or sooner if medically necessary, to reassess this patient's status. Osteopenia: Consider a repeat DEXA in 2-3 years to reassess this patient's status, or if there is a new clinical indication. Normal: Consider a repeat DEXA in 5 years or sooner, or if there is a new clinical indication. All treatment decisions require clinical judgment and consideration of individual patient factors, including patient preferences, comorbidities, previous drug use, risk factors not captured in the FRAX model (e.g., frailty, falls, vitamin D deficiency, increased bone turnover, interval significant decline in bone density ) and possible under- or over-estimation of fracture risk by FRAX. In addition, the NOF Guide recommends that FDA-approved medical therapies be considered in postmenopausal women and men age >= 50 years with a: * Hip or vertebral (clinical or morphometric) fracture * T-score of <=-2.5 at the spine or hip * Ten-year fracture probability by FRAX of >= 3% for hip fracture or >=20% for major osteoporotic fracture. Dictated by: Anahi Cabrera M.D. on 07/03/2024 at 15:54 Approved by: Anahi Cabrera M.D. on 07/03/2024 at 15:56
== END ==
PROVIDERS: PCP Family Medicine; Referring Provider Family Medicine; Visit Provider Family Medicine
DX: M81.0 Age-related osteoporosis without current pathological fracture (principal)
CPT/HCPCS: 77080

== ENCOUNTER 2025-02-17 05:19 | Inpatient (IN) | payer MEDICARE, SELFPAY ==
[2025-02-17] VITALS (15 sets, daily range): BP systolic 122–158; BP diastolic 78–99; PULSE 68–89; RESP 10–27; TEMP 35.9–36.6; O2SAT 94–99; BMI 29.8; BMI 29.1
--- NOTE | 2025-02-17 05:20 | ED.WEAKNESS ---
HPI - Weakness <Ruddy Falk, DO - Last Filed: 02/17/25 07:12> General Chief complaint: Neuro Symptoms/Deficit Stated complaint: Code Stroke Time Seen by Provider: 02/17/25 07:01 History of Present Illness HPI Narrative: 89y M history of meningioma, bladder cancer s/p chemo/radiation/surgery treated at , prostate cancer, atrial flutter with ablation previously on xarelto not currently on any anticoaguliation, pacemaker, hypertension, brought in by EMS for confusion, L facial droop, unsteady gait, weakness at 3:30 a.m. this morning. Last known well at 10:30pm . last evening. Patient denies headache, dizziness, chest pain, shortness of breath, fever, chills, nausea, vomiting, diarrhea, abdominal, back pain, urinary complaints, difficulty speaking, swallowing, weakness in the arms, legs, loss of consciousness. Per his came into the room [facility] at about 345 a.m. will use the washroom and was confused head in the wrong direction and had to be redirected to use the bathroom. When patient came out of the bathroom he was was going back to the bedroom but instead he went towards the sliding door by the porch and had to be redirected again. also noticed a left facial droop also noticed that he was not able to raise his left arm as high as his right arm and at that time called 911. Other than what is stated 14 point review of systems Related Data Home Medications ?Medication ?Instructions ?Recorded ?Confirmed metoprolol tartrate 25 mg tablet 25 mg PO DAILY 04/06/23 08/27/23 Previous Rx's ?Medication ?Instructions ?Recorded losartan 25 mg tablet See Rx Instructions .Route 02/23/23 .COMPLEX #90 tabs oxybutynin chloride 5 mg tablet 5 mg PO BID-TID PRN bladder spasms 08/10/23 #30 tabs ciprofloxacin HCl 500 mg tablet 500 mg PO BID #10 tabs 08/19/23 Allergies Allergy/AdvReac Type Severity Reaction Status Date / Time morphine (MORPHINE) Allergy Intermediate halluncinat Verified 08/16/23 09:08 ions Sulfa (Sulfonamide Allergy Mild fever Verified 08/16/23 09:08 Antibiotics) vibegron (From Gemtesa) AdvReac Severe Hallucinating, Verified 08/16/23 09:08 GI upset Review of Systems <Ruddy Falk DO - Last Filed: 02/17/25 07:12> Review of Systems ROS Unobtainable: All systems reviewed & are unremarkable except as noted in HPI and below Patient History <Ruddy Falk DO - Last Filed: 02/17/25 07:12> Medical History (Updated 02/17/25 @ 08:51 by Luna Merida DO) Recurrent malignant neoplasm of bladder Atrial flutter (~10/2019) Meningioma, cerebral History of urinary tract infection Bladder cancer Lesion of bladder Pacemaker History of prostate cancer Gross hematuria Tubular adenoma Hearing loss Plantar warts (~2004) Abnormal chest xray Osteoporosis Mumps Measles Herpes (~1959) Chicken pox Vertigo (~2007) Tinnitus (~1972) History of elevated PSA (~1992) AV block (~2014) Prostate cancer (~1992) Surgical History (Updated 08/09/23 @ 10:52 by Rylie Palencia RN) Hx of cystoscopy (04/06/23) Hx of cystoscopy (12/07/22) H/O transurethral resection of bladder tumor (TURBT) (10/27/22) Hx of bilateral cataract extraction (2017) Hx of total knee arthroplasty (~2021) Anesthesia History of appendectomy (~1955) History of prostatectomy (~1992) Pacemaker (~2012) S/P ablation of atrial fibrillation Family History Father Cancer History of heart disease Mother Pneumonia Stroke Brother Prostate cancer Sister Autoimmune disease Sister Breast cancer Social History marital status: household members: spouse lives independently: Yes education level: other occupational status: other Tobacco: How many years used: 25 alcohol intake: current substance use type: marijuana alcohol intake frequency: 0-2 drinks per day Exam <Ruddy Falk DO - Last Filed: 02/17/25 07:12> Narrative Exam Narrative: GENERAL: [89] year old patient appears stated age. Well-developed patient, in mild distress. HEAD: Atraumatic. Normocephalic. EYES: Pupils equal round and reactive. Extraocular motions intact. No scleral icterus. No injection or drainage. ENT: Nose without bleeding, purulent drainage. Throat without erythema, tonsillar hypertrophy or exudate. Airway patent. NECK: Trachea midline. Non tender CARDIOVASCULAR: Regular rate and rhythm without murmurs, gallops, or rubs. RESPIRATORY: Clear to auscultation. Breath sounds equal bilaterally. No wheezes, rales, or rhonchi. GASTROINTESTINAL: Abdomen soft, non-tender, nondistended. EXTREMITIES: No edema or joint tenderness. BACK: Nontender without deformity or crepitance. No flank tenderness. NEURO: AOx3. GCS 15 SKIN: No rash or erythema of visible areas Initial Vital Signs Initial Vital Signs: Vital Signs Pulse Rate 70 02/17/25 05:18 Respiratory Rate 18 02/17/25 05:18 Blood Pressure 144/91 H 02/17/25 05:18 Pulse Oximetry 95 02/17/25 05:18 Oxygen Delivery Method Room Air 02/17/25 05:18 <Luna Merida DO - Last Filed: 02/17/25 09:50> Initial Vital Signs Initial Vital Signs: Vital Signs Pulse Rate 70 02/17/25 05:18 Respiratory Rate 18 02/17/25 05:18 Blood Pressure 144/91 H 02/17/25 05:18 Pulse Oximetry 95 02/17/25 05:18 Oxygen Delivery Method Room Air 02/17/25 05:18 Scores <Ruddy Falk, DO - Last Filed: 02/17/25 07:12> NIH Stroke Scale Level of Conciousness: Alert, keenly responsive Ask month/age: Answers both questions correctly. Open/close eyes, close hand: Performs both tasks correctly Best gaze horizontal: Partial gaze palsy, can be overcome by finger tracking, head turning Visual pepe: No visual loss Facial palsy: Minor paralysis, flattened nasolabial fold, asymmetry on smiling Left arm drift: No drift for full 10 sec Right arm drift: No drift for full 10 sec Left leg drift: No drift for full 5 sec Right leg drift: No drift for full 5 sec Limb ataxia: Absent Sensory on face/arms/legs: Mild to moderate sensory loss, can tell touch Best language: No aphasia, normal Dysarthria: Normal Extinction or inattention: No abnormality Total NIH Stroke scale score: 3 <DO Zoila Vo Last Filed: 02/17/25 09:50> NIH Stroke Scale Total NIH Stroke scale score: 3 Course <Ruddy Falk, DO - Last Filed: 02/17/25 07:12> Orders Ordered: ED Orders 02/17/25 05:20 Complete Blood Count AUTO DIFF Stat Comprehensive Metabolic Panel Stat PTT Partial Thromboplastin Javed Stat Prothrombin Time INR Stat Troponin & CK Cardiac Panel Stat 02/17/25 05:[address] angio head and neck Stat XR chest 1V Stat EKG-12 Lead Stat 02/17/25 06:43 Urine Drug Screen, Rapid Stat Ondansetron HCl (Ondansetron 4 Mg/2 Ml Inj) 4 mg IV NOW PRN PRN Reason: Nausea And Vomiting Ondansetron HCl (Ondansetron 4 Mg Odt) 4 mg PO NOW PRN PRN Reason: Nausea And Vomiting Discontinued Medications Aspirin (Aspirin 81 Mg Chew Tab) 324 mg PO NOW ONE Stop: 02/17/25 08:09 Last Admin: 02/17/25 08:39 Dose: 324 mg Documented By: MARQUES Vital Signs Vital signs: Vital Signs - 8 hr 02/17/25 05:18 02/17/25 06:12 02/17/25 06:30 Pulse Rate 70 71 Respiratory Rate 18 19 Blood Pressure 144/91 H 143/88 H Pulse Oximetry 95 96 Oxygen Delivery Method Room Air 02/17/25 06:30 02/17/25 07:00 02/17/25 07:00 Pulse Rate 71 69 Respiratory Rate 16 19 Blood Pressure 147/93 H Pulse Oximetry 94 97 Oxygen Delivery Method 02/17/25 07:30 02/17/25 07:30 02/17/25 08:01 Pulse Rate 73 89 Respiratory Rate 14 Blood Pressure 155/99 H Pulse Oximetry 99 97 Oxygen Delivery Method <Luna Merida, DO - Last Filed: 02/17/25 09:50> Orders Ordered: ED Orders 02/17/25 05:20 Complete Blood Count AUTO DIFF Stat Comprehensive Metabolic Panel Stat PTT Partial Thromboplastin Javed Stat Prothrombin Time INR Stat Troponin & CK Cardiac Panel Stat 02/17/25 05:[address] angio head and neck Stat XR chest 1V Stat EKG-12 Lead Stat 02/17/25 06:43 Urine Drug Screen, Rapid Stat Ondansetron HCl (Ondansetron 4 Mg/2 Ml Inj) 4 mg IV NOW PRN PRN Reason: Nausea And Vomiting Ondansetron HCl (Ondansetron 4 Mg Odt) 4 mg PO NOW PRN PRN Reason: Nausea And Vomiting Discontinued Medications Aspirin (Aspirin 81 Mg Chew Tab) 324 mg PO NOW ONE Stop: 02/17/25 08:09 Last Admin: 02/17/25 08:39 Dose: 324 mg Documented By: MARQUES Vital Signs Vital signs: Vital Signs - 8 hr 02/17/25 05:18 02/17/25 06:12 02/17/25 06:30 Pulse Rate 70 71 Respiratory Rate 18 19 Blood Pressure 144/91 H 143/88 H Pulse Oximetry 95 96 Oxygen Delivery Method Room Air 02/17/25 06:30 02/17/25 07:00 02/17/25 07:00 Pulse Rate 71 69 Respiratory Rate 16 19 Blood Pressure 147/93 H Pulse Oximetry 94 97 Oxygen Delivery Method 02/17/25 07:30 02/17/25 07:30 02/17/25 08:01 Pulse Rate 73 89 Respiratory Rate 14 Blood Pressure 155/99 H Pulse Oximetry 99 97 Oxygen Delivery Method MDM - Weakness <Ruddy Falk, - Last Filed: 02/17/25 07:12> Lab Data 02/17/25 05:20 02/17/25 05:20 Labs: Lab Results 02/17/25 02/17/25 02/17/25 Range/Units 05:20 05:39 06:43 WBC 5.7 (4.5-11.0) X10^3/uL RBC 4.74 (4.5-5.9) X10^6/uL Hgb 16.5 (13.5-17.5) g/dL Hct 47.7 (41-53) % MCV 100.8 H (80-100) fL MCH 34.7 H (26-34) PG MCHC 34.5 (30-36) % RDW 13.5 (11.6-14.8) % Plt Count 176 (150-400) X10^3/uL Neut % (Auto) 42.5 L (50-75) % Lymph % (Auto) 36.8 (25-40) % [place] % (Auto) 16.0 H (3-14) % Eos % (Auto) 3.4 (2-4) % Baso % (Auto) 1.3 (0-2) % Neut # (Auto) 2400 (6320-9859) /uL Lymph # (Auto) 2100 (8093-7017) /uL [place] # (Auto) 900 (0-900) /uL Eos # (Auto) 200 (0-450) /uL Baso # (Auto) 100 (0-100) /uL PT 12.6 H (9.4-12.5) SECONDS INR 1.1 (0.9-1.3) APTT 28 (25.1-36.5) SECONDS Sodium 135 L (137-145) mmol/L Potassium 4.4 (3.4-5.1) mmol/L Chloride 103 (98-107) mmol/L Carbon Dioxide 23 (22-32) mmol/L BUN 24 H (9-20) mg/dL Creatinine 1.29 H (0.66-1.25) mg/dL Estimated GFR 53 L (>60) mL/min BUN/Creatinine Ratio 18.6 (6-22) Glucose 99 (70-99) mg/dL POC Whole Bld Glucose 94 (70-99) mg/dL Calcium 9.4 (8.4-10.2) mg/dL Total Bilirubin 1.0 (0.2-1.3) mg/dL AST 42 (17-59) IU/L ALT 34 (<50) IU/L Alkaline Phosphatase 63 (38-126) U/L Total Creatine Kinase 50 L (55-170) U/L Troponin I 0.015 (0.01-0.034) ng/mL Total Protein 8.2 (6.3-8.2) g/dL Albumin 4.6 (3.5-5.0) g/dL Globulin 3.6 (1.7-4.1) g/dL Albumin/Globulin Ratio 1.3 (1.0-2.8) U Opiates 300ng/mL cut Negative (Negative) Ur Oxycodone Screen Negative (Negative) Urine Methadone Screen Negative (Negative) Ur Barbiturates Screen Negative (Negative) U Tricyclic Antidepress Negative (Negative) Ur Phencyclidine Scrn Negative (Negative) Ur Amphetamines Screen Negative (Negative) U Methamphetamines Scrn Negative (Negative) Ur MDMA Scrn (Ecstasy) Negative (Negative) U Benzodiazepines Scrn Negative (Negative) Urine Cocaine Screen Negative (Negative) U Marijuana (THC) Screen Negative (Negative) Urine pH Normal (Normal) Urine Specific [place] Normal (Normal) Ur Creatinine Normal (Normal) Point of Care Testing Glucose POC 94 Urine Dip Bedside Urine Glucose Negative Bedside Urine Bilirubin - Negative Bedside Urine Ketone - Negative Urine Specific [place] 1.010 Bedside Urine Occult Blood - Negative Bedside Urine pH 6.0 Bedside Urine Protein - Negative Bedside Urine Urobilinogen - Negative Bedside Urine Nitrite - Negative Bedside Urine Leukocytes - Negative Esterase Imaging Data CT scan - head: Radiologist Impression: CT head showed no evidence of acute large territory infarct or intracranial hemorrhage. Global volume loss with changes suggesting chronic micro angiopathy. 1.8 cm right middle cranial fossa dural based partially calcified lesion is most likely meningioma. No prior exams for comparison. WBC 5.7 hemoglobin 16.5 platelets 176 INR 1.1 sodium 135 potassium 4.4 chloride 103 CO2 23 BUN 24 creatinine 1.29 glucose 99 LFTs normal. Troponin 0.015 1st set EKG V paced Chest x-ray: Radiologist Impression: No acute cardiopulmonary process CTA - brain/neck: Radiologist Impression: The brain parenchyma is normal in volume morphology no intracranial hemorrhage mass effect midline shift or hydrocephalus is seen. No abnormal extra axial fluid collections are identified. Atherosclerosis of the internal carotid arteries at the siphons. There is no evidence of aneurysm AVM or any significant vascular occlusive disease. Paranasal sinuses and mastoid air cells are normally aerated. Bilateral globes and retrobulbar soft tissues are within normal limits. The calvarium and overlying soft tissues are unremarkable. No acute intracranial abnormality. Normal CTA. ECG Data Interpretation: V paced HR 71 MI undetermined QRS [address]-t wave change Unchanged from 09/09/21 [facility] Narrative Medical decision making narrative: All labwork, vital signs, nurse triage note, medication list, previous ER visits, and all imaging studies reviewed. CT head showed no evidence of acute large territory infarct or intracranial hemorrhage. Global volume loss with changes suggesting chronic micro angiopathy. 1.8 cm right middle cranial fossa dural based partially calcified lesion is most likely meningioma. The brain parenchyma is normal in volume morphology no intracranial hemorrhage mass effect midline shift or hydrocephalus is seen. No abnormal extra axial fluid collections are identified. Atherosclerosis of the internal carotid arteries at the siphons. There is no evidence of aneurysm AVM or any significant vascular occlusive disease. Paranasal sinuses and mastoid air cells are normally aerated. Bilateral globes and retrobulbar soft tissues are within normal limits. The calvarium and overlying soft tissues are unremarkable. No acute intracranial abnormality. Normal CTA. Chest x-ray showed no acute process. WBC 5.7 hemoglobin 16.5 platelet 176 INR 1.1 sodium 135 potassium 4.4 chloride 103 bicarb 23 BUN 24 creatinine 1.29 glucose 99 troponin 0.015. EKG V paced <Luna Merida, DO - Last Filed: 02/17/25 09:50> Lab Data Labs: Lab Results 02/17/25 02/17/25 02/17/25 Range/Units 05:20 05:39 06:43 WBC 5.7 (4.5-11.0) X10^3/uL RBC 4.74 (4.5-5.9) X10^6/uL Hgb 16.5 (13.5-17.5) g/dL Hct 47.7 (41-53) % MCV 100.8 H (80-100) fL MCH 34.7 H (26-34) PG MCHC 34.5 (30-36) % RDW 13.5 (11.6-14.8) % Plt Count 176 (150-400) X10^3/uL Neut % (Auto) 42.5 L (50-75) % Lymph % (Auto) 36.8 (25-40) % [place] % (Auto) 16.0 H (3-14) % Eos % (Auto) 3.4 (2-4) % Baso % (Auto) 1.3 (0-2) % Neut # (Auto) 2400 (1656-1548) /uL Lymph # (Auto) 2100 (1311-8411) /uL [place] # (Auto) 900 (0-900) /uL Eos # (Auto) 200 (0-450) /uL Baso # (Auto) 100 (0-100) /uL PT 12.6 H (9.4-12.5) SECONDS INR 1.1 (0.9-1.3) APTT 28 (25.1-36.5) SECONDS Sodium 135 L (137-145) mmol/L Potassium 4.4 (3.4-5.1) mmol/L Chloride 103 (98-107) mmol/L Carbon Dioxide 23 (22-32) mmol/L BUN 24 H (9-20) mg/dL Creatinine 1.29 H (0.66-1.25) mg/dL Estimated GFR 53 L (>60) mL/min BUN/Creatinine Ratio 18.6 (6-22) Glucose 99 (70-99) mg/dL POC Whole Bld Glucose 94 (70-99) mg/dL Calcium 9.4 (8.4-10.2) mg/dL Total Bilirubin 1.0 (0.2-1.3) mg/dL AST 42 (17-59) IU/L ALT 34 (<50) IU/L Alkaline Phosphatase 63 (38-126) U/L Total Creatine Kinase 50 L (55-170) U/L Troponin I 0.015 (0.01-0.034) ng/mL Total Protein 8.2 (6.3-8.2) g/dL Albumin 4.6 (3.5-5.0) g/dL Globulin 3.6 (1.7-4.1) g/dL Albumin/Globulin Ratio 1.3 (1.0-2.8) U Opiates 300ng/mL cut Negative (Negative) Ur Oxycodone Screen Negative (Negative) Urine Methadone Screen Negative (Negative) Ur Barbiturates Screen Negative (Negative) U Tricyclic Antidepress Negative (Negative) Ur Phencyclidine Scrn Negative (Negative) Ur Amphetamines Screen Negative (Negative) U Methamphetamines Scrn Negative (Negative) Ur MDMA Scrn (Ecstasy) Negative (Negative) U Benzodiazepines Scrn Negative (Negative) Urine Cocaine Screen Negative (Negative) U Marijuana (THC) Screen Negative (Negative) Urine pH Normal (Normal) Urine Specific [place] Normal (Normal) Ur Creatinine Normal (Normal) Point of Care Testing Glucose POC 94 Urine Dip Bedside Urine Glucose Negative Bedside Urine Bilirubin - Negative Bedside Urine Ketone - Negative Urine Specific [place] 1.010 Bedside Urine Occult Blood - Negative Bedside Urine pH 6.0 Bedside Urine Protein - Negative Bedside Urine Urobilinogen - Negative Bedside Urine Nitrite - Negative Bedside Urine Leukocytes - Negative Esterase Imaging Data CTA - brain/neck: Radiologist Impression: The brain parenchyma is normal in volume morphology no intracranial hemorrhage mass effect midline shift or hydrocephalus is seen. No abnormal extra axial fluid collections are identified. Atherosclerosis of the internal carotid arteries at the siphons. There is no evidence of aneurysm AVM or any significant vascular occlusive disease. Paranasal sinuses and mastoid air cells are normally aerated. Bilateral globes and retrobulbar soft tissues are within normal limits. The calvarium and overlying soft tissues are unremarkable. No acute intracranial abnormality. Normal CTA. PROCEDURE: CT ANGIO HEAD AND NECK INDICATIONS: ams TECHNIQUE: After the administration of intravenous contrast, 1 mm thick sections acquired from the aortic arch through the [place] of [place]. 3-dimensional [id number] (MIP) and/or volume rendering reformats were acquired of the central intracranial vasculature and neck separately. For radiation dose reduction, the following was used: automated exposure control, adjustment of mA and/or kV according to patient size. COMPARISON: None. FINDINGS: Image quality: Diagnostic HEAD ANGIOGRAPHY: Anterior circulation: ICAs: [id number] cavernous and supraclinoid calcifications. ACAs: Patent MCAs: Nearly occlusive thrombus is seen at the right M1 terminus. 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 [id number] intracranial irregularities elsewhere likely intracranial atherosclerosis NECK ANGIOGRAPHY: Aortic arch and subclavian arteries: Patent CCAs: Patent ICA origins (by NASCET criteria): [id number]-[id number] right-sided calcifications are less than 50% narrowing. ICAs: Patent ECAs: Origins are patent. Vertebral arteries: Overall patent Soft tissues: No significant mass, aneurysm, or lymphadenopathy Lung apices: No pneumothorax Bones: No acute or suspicious abnormality. IMPRESSION: Right M1 terminus near occlusive thromboembolism. Intracranial atherosclerotic irregularities are present, with age-indeterminate high-grade stenosis versus thrombus of the right proximal [employer]ER. Other findings above. Called to the ED at the time of report signing due to changes from the preliminary report. Any quantitative measurements of stenosis were performed using NASCET criteria. Dictated by: Gerald Stephen M.D. on 02/17/2025 at 8:14 Approved by: Gerald Stephen M.D. on 02/17/2025 at 8:28 MDM Narrative Medical decision making narrative: All labwork, vital signs, nurse triage note, medication list, previous ER visits, and all imaging studies reviewed. CT head showed no evidence of acute large territory infarct or intracranial hemorrhage. Global volume loss with changes suggesting chronic micro angiopathy. 1.8 cm right middle cranial fossa dural based partially calcified lesion is most likely meningioma. The brain parenchyma is normal in volume morphology no intracranial hemorrhage mass effect midline shift or hydrocephalus is seen. No abnormal extra axial fluid collections are identified. Atherosclerosis of the internal carotid arteries at the siphons. There is no evidence of aneurysm AVM or any significant vascular occlusive disease. Paranasal sinuses and mastoid air cells are normally aerated. Bilateral globes and retrobulbar soft tissues are within normal limits. The calvarium and overlying soft tissues are unremarkable. No acute intracranial abnormality. Normal CTA. Chest x-ray showed no acute process. WBC 5.7 hemoglobin 16.5 platelet 176 INR 1.1 sodium 135 potassium 4.4 chloride 103 bicarb 23 BUN 24 creatinine 1.29 glucose 99 troponin 0.015. EKG V paced 0730 DR. Merida I have seen and evaluated patient. Have reviewed chart. Patient here concern for stroke. Last known well was 03 01 last night woke up at 3:45 a.m. in the morning noticed to have significant left facial droop and left-sided weakness. Patient was previously on Xarelto but due to bladder cancer and bleeding he has not been on any antiplatelet or anticoagulation medication for a number of years. CBC no leukocytosis no anemia CMP no electrolyte abnormality creatinine at baseline at 1.29 Troponin is negative However enzymes bilirubin within normal limits CT HEAD-no intracranial abnormality no discrepancy from preliminary report CT angio head and neck right M1 terminus near occlusive thromboembolism intracranial atherosclerotic irregularities are present with age indeterminate high-grade stenosis versus thrombus of right proximal [employer]KER, this is discrepancy from preliminary read. 0735 I spoke with Real Jean Claude Mckeon about possible occlusion of the right MCA, she confirms there is absolutely no occlusion 0800 Dr. Sesay, neurology updated on patient's symptoms test results. Left eye vision deficit does not correlate, with improvement of symptoms no need to transfer, treat with supportive care 0815 Dr. Stephen, Radiology confirms that there is likely right M1 occlusion and right HAND C[employer]KER stenosis that is high-grade 0830 DR. Sesay, neurology updated the there is an actual large vessel occlusion however patient's symptoms are improved also does not explain the left eye deficit, at this time no need to transfer supportive care keep bed 30? IV fluids hold hypertensive medications and aspirin 0845 Dr. Patterson accepts patient Critical Care Time <Luna Merida, - Last Filed: 02/17/25 09:50> Critical Care Time Critical Care Time: Yes Total Critical Care Time: 31 Attestation: The high probability of a clinically significant, sudden or life threatening deterioration of the neurovascular system(s) required my full and direct attention, intervention and personal management. The aggregate critical care time was 31 minutes. This time is in addition to time spent performing reported procedures but includes the following: [x] Data Review and interpretation [x] Patient assessment and monitoring of vital signs [x] Documentation [x] Medication orders and management Discharge Plan Departure Patient Disposition: Admitted as Observation Clinical Impression: CVA (cerebral vascular accident) Admit Date/Time: 02/17/25 08:48 Admit Provider: Diasy Patterson
--- NOTE | 2025-02-17 05:22 | DI.RAD.S_ITS ---
PROCEDURE: XR CHEST 1V INDICATIONS: Possible stroke TECHNIQUE: One view of the chest was acquired. COMPARISON: [facility], , XR CHEST 1V, 09/09/2021, 12:01. FINDINGS: Surgical changes and devices: Biventricular pacer Lungs and pleura: Lungs are clear. No pleural effusions or pneumothorax. Mediastinum: Mediastinal contours appear normal. Heart size is normal. Bones and chest wall: No suspicious bony lesions. Overlying soft tissues appear unremarkable. IMPRESSION: No acute cardiopulmonary abnormality is seen. Approved by: Ilia Tom M.D. on 02/17/2025 at 8:19
--- NOTE | 2025-02-17 05:22 | DI.CT.S_ITS ---
PROCEDURE: CT STROKE INDICATIONS: Positive BE-FAST, Stroke symptoms TECHNIQUE: Noncontrast 4.5 mm thick angled axial sections acquired from the foramen magnum to the vertex, with coronal reformats. For radiation dose reduction, the following was used: automated exposure control, adjustment of mA and/or kV according to patient size. COMPARISON: [facility], CT, CT HEAD/BRAIN WO CON, 02/26/2022, 10:04. FINDINGS: Image quality: Diagnostic CSF spaces: Basal cisterns are patent. Lateral ventricles are symmetric. Volume: Vascular calcifications. Periventricular white matter disease is commonly seen with chronic microangiopathy. Volume loss is present. These findings are [id number] Brain: No gross loss of chapin-white differentiation. No acute intracranial hemorrhage. Right middle fossa 1.7 cm partially calcified probable meningioma again seen. Craniofacial structures: No significant paranasal sinus opacity. IMPRESSION: No acute intracranial abnormality. Consider MRI if there is high concern for infarction. No significant discrepancy from the preliminary report. This study fulfills neurological imaging criteria for inclusion or exclusion of acute stroke therapies based on available published neurological imaging guidelines. Dictated by: Gerald Stephen M.D. on 02/17/2025 at 8:12 Approved by: Gerald Stephen M.D. on 02/17/2025 at 8:13
[2025-02-17 05:35] LABS: Add Manual Diff / Slide Review NO; Hematocrit 47.7 % (41-53); Hemoglobin 16.5 g/dL (13.5-17.5); Lymphocytes Absolute Auto 2100 /uL (1100-4500); Mean Corpuscular HGB Conc 34.5 % (30-36); Mean Corpuscular Hemoglobin 34.7 PG (26-34); Mean Corpuscular Volume 100.8 fL (80-100); Platelet Count 176 X10^3/uL (150-400)
--- NOTE | 2025-02-17 05:37 | EKG_ITS ---
[address] [address] [address], [place] [address] Test Date: 2025-02-17 Pat Name: Anselmo Castro Department: Room: Gender: Male Certified Coding Specialist: SHAILA : 1935 Requested By: Order Number: [id number] Reading MD: Ruddy Kaplan MD Measurements Intervals [place] Rate: 71 P: GA: QRS: -83 QRSD: 158 T: 86 QT: 450 QTc: 489 Interpretive Statements Ventricular-paced rhythm Electronically Signed On 02-17-2025 8:50:50 PDT by Ruddy Kaplan MD
[2025-02-17 05:40] LABS: INR 1.1 (0.9-1.3); Prothrombin Time 12.6 SECONDS (9.4-12.5)
[2025-02-17 05:43] LABS: PTT Partial Thromboplastin Tim 28 SECONDS (25.1-36.5)
[2025-02-17 05:44] LABS: Alanine Aminotransferase 34 IU/L (<50); Albumin 4.6 g/dL (3.5-5.0); Albumin Globulin Ratio 1.3 (1.0-2.8); Alkaline Phosphatase 63 U/L (38-126); Blood Urea Nitrogen 24 mg/dL (9-20); Calcium 9.4 mg/dL (8.4-10.2); Carbon Dioxide 23 mmol/L (22-32); Chloride 103 mmol/L (98-107); Creatine Kinase 50 U/L (55-170); Estimated Glomerular Filt Rate 53 mL/min (>60); Globulin 3.6 g/dL (1.7-4.1); Glucose 99 mg/dL (70-99); HEMOLYSIS < 15 (0-50); Potassium 4.4 mmol/L (3.4-5.1); Sodium 135 mmol/L (137-145); Total Protein 8.2 g/dL (6.3-8.2)
[2025-02-17 05:56] LABS: Troponin I 0.015 ng/mL (0.01-0.034)
[2025-02-17 06:53] LABS: Ur Creatinine Normal (Normal); Ur Specific Gravity Normal (Normal); Urine THC Negative (Negative); Urine pH Normal (Normal)
[2025-02-17 06:54] LABS: Urine MDMA Negative (Negative); Urine Methamphetamines Negative (Negative); Urine Tricyclic Antidepressant Negative (Negative)
--- NOTE | 2025-02-17 08:04 | PC.NURSE ---
pt able to ambulate on own to restroom
[2025-02-17] MEDS: ASPIRIN 81 MG CHEW TAB 324 MG PO (08:39)
--- NOTE | 2025-02-17 12:48 | PC.NURSE ---
Pt transferred from ED at 1018, arrived in wheelchair, able to transfer to bed with SBA. Speech/action seem slightly delayed and slowed but otherwise A&Ox4. Lung sounds CTA, bowel sounds present, CMS+ bilaterally throughout. NIH 3, tele placed: v-paced. Pt and spouse oriented to room and call light. Bed in low position, call light within reach, bed alarm activated, SCDs on.
--- NOTE | 2025-02-17 13:09 | DI.ECHO.S_ITS ---
[facility] : : [address] : : [facility] : : [place], : : [place] [address] : : Phone: [phone] Echocardiogram Report + :Name: RENETTA PRESTON Study Date: 02/18/2025 Height: 72 in : :[facility] #: [id number]: Weight: 220 lb: : Gender: Male BSA: 2.2 m2 : :: 1935 Age: 89 yrs : :Reason For Study: STROKE : : Performed By: Emergency Room Orderly Jeannie Prather : :Referring: LEIDY HERNANDEZ : + Interpretation Summary There is moderate concentric left ventricular hypertrophy. The ejection fraction is estimated to be 55-60%. There is a mild dyssynchronous contraction pattern due to the paced rhythm. The right ventricle is normal size. There is a pacemaker lead in the right ventricle. Right ventricular systolic function is mildly reduced. The right ventricular systolic pressure is estimated to be at least 39 mmHg based on an estimated right atrial pressure of 8 mm Hg. There is mild aortic regurgitation. The ascending aorta is mildly enlarged. Doppler interrogation and injection of saline echo contrast shows no evidence for an interatrial shunt. Procedure: A two-dimensional transthoracic echocardiogram with color flow and Doppler was performed. The study quality was technically difficult. The patient had an echocardiogram, but there is no comparison study available. A saline contrast injection was performed to assess for cardiac shunting. The injection was performed through an intravenous line in the right arm. The heart rate ranged between 66-83 bpm during the study. Left Ventricle: There is moderate concentric left ventricular hypertrophy. Left ventricular systolic function appears normal without focal wall motion abnormalities. The ejection fraction is estimated to be 55-60%. There is a mild dyssynchronous contraction pattern due to the paced rhythm. Diastolic function is indeterminate. Right Ventricle: The right ventricle is normal size. There is a pacemaker lead in the right ventricle. Right ventricular systolic function is mildly reduced. Atria: The left atrium is moderately dilated. Right atrial size is normal. There is a catheter/pacemaker lead seen in the right atrium. Doppler interrogation and injection of saline echo contrast shows no evidence for an interatrial shunt. Bubble study was captured on image frame(s) # [id number]. Mitral Valve: The mitral valve leaflets are mildly calcified. There is mild mitral annular calcification. There is mild mitral regurgitation. Aortic Valve: The aortic valve is moderately calcified. The aortic valve is trileaflet. There is no aortic valve stenosis. There is mild aortic regurgitation. Tricuspid Valve: The tricuspid valve leaflets are thickened and/or calcified, but open well. There is mild tricuspid regurgitation. The right ventricular systolic pressure is estimated to be at least 39 mmHg based on an estimated right atrial pressure of 8 mm Hg. Pulmonic Valve: The pulmonic valve is not well visualized. There is no pulmonic valvular stenosis. There is trace pulmonic regurgitation. Great Vessels: The aortic root is normal size. The ascending aorta is mildly enlarged. The IVC is dilated (diameter is greater than 2.1 cm) yet it collapses greater than 50% with a sniff. This suggests a right atrial pressure of 8 mm Hg. Pericardium/ Pleura There is no pericardial effusion. There is no pleural effusion. MMode/2D Measurements & Calculations LVIDd: 4.1 cm LVOT diam: 2.4 cm LVIDs: 2.7 cm Ao root diam: 3.7 cm IVSd: 1.6 cm asc Aorta Diam: 3.6 cm LVPWd: 1.6 cm LV hilario. diameter/BSA (cm/m^2): 1.8 LV sys. diameter/BSA (cm/m^2): 1.2 FS: 33.8 % EPSS: 0.39 cm LA A2 area: 28.6 cm2 RA long axis: 7.4 cm LA A4 area: 23.8 cm2 RA area: 24.7 cm2 LA length (vol): 6.4 cm RA vol: 69.9 ml LA vol: 90.3 ml RA : 31.5 ml/m2 LA vol index: 40.7 ml/m2 RVD1 (basal): 3.9 cm IVC diam: 2.3 cm TAPSE: 1.4 cm Doppler Measurements & Calculations Ao V2 max: 124.3 cm/sec LVOT Max Vince: 65.2 cm/sec Ao V2 mean: 93.9 cm/sec LV V1 max P.7 mmHg Ao V2 VTI: 21.2 cm LV V1 VTI: 13.2 cm Ao max P.2 mmHg Ao mean P.7 mmHg DEJA(I,D): 2.8 cm2 MV E max vince: 62.2 cm/sec DEJA(V,D): 2.4 cm2 MV A max vince: 24.3 cm/sec DEJA indexed to BSA (cm^2/m^2): 1.3 MV E/A: 2.6 sev ratio: 0.63 Med Peak E' Vince: 4.4 cm/sec E/E' med: 14.3 MV dec time: 0.21 sec TR max vince: 277.5 cm/sec TR max P.8 mmHg PA pr(Accel): 63.6 mmHg SV(LVOT): 59.8 ml Reading Physician:02:08 PM
--- NOTE | 2025-02-17 13:50 | PT.IIE ---
Surgical History (Last Reviewed 02/17/25 @ 13:57 by Daisy Patterson MD) Anesthesia H/O transurethral resection of bladder tumor (TURBT) (10/27/22) History of appendectomy (~1955) History of prostatectomy (~1992) Hx of bilateral cataract extraction (2017) Hx of cystoscopy (12/07/22) Hx of cystoscopy (04/06/23) Hx of total knee arthroplasty (~2021) Pacemaker (~2012) S/P ablation of atrial fibrillation Medical History (Last Reviewed 02/17/25 @ 13:57 by Daisy Patterson MD) Abnormal chest xray Atrial flutter (~10/2019) AV block (~2014) Bladder cancer Chicken pox Gross hematuria Hearing loss Herpes (~1959) History of elevated PSA (~1992) History of prostate cancer History of urinary tract infection Lesion of bladder Measles Meningioma, cerebral Mumps Osteoporosis Pacemaker Plantar warts (~2004) Prostate cancer (~1992) Recurrent malignant neoplasm of bladder Tinnitus (~1972) Tubular adenoma Vertigo (~2007) Physical Therapy Inpatient Evaluation/Re-Eval M1 PT/OT-IP Prior Functional Status Start: 02/17/25 14:40 Freq: NEEDED Status: Active Protocol: Document 02/17/25 13:50 AB (Rec: 02/17/25 15:00 AB Desktop) Medical Review Prior Functional Status Medical History Yes Reviewed Communication able to make needs known; slightly slow to respond to questions Mobility and Gait pt stated that he is independent with all mobilities and ambulation without AD Social History Household Members spouse Living Arrangements House Number of Floors ( 3 or More Floors Floors) Number of Stairs To 6 steps to enter the house with L rail ascending Enter/Railing? 14 steps with B rails to get to main level of the house Home Environment High Toilet,Walk in Shower,Built-In Shower Seat Home Equipment Hand Held Shower,Grab Bars Near Toilet Additional Social pt has a hurrycane History Comment M2 PT-IP Current Condition Start: 02/17/25 14:40 Freq: NEEDED Status: Active Protocol: Document 02/17/25 13:50 AB (Rec: 02/17/25 15:00 AB Desktop) Physical Therapy Current Condition Current Condition Evaluation Date 02/17/25 Treatment Diagnosis r/o CVA; difficulty in walking Onset Date 02/17/25 M3 PT-IP Subjective Start: 02/17/25 14:40 Freq: NEEDED Status: Active Protocol: Document 02/17/25 13:50 AB (Rec: 02/17/25 15:00 AB Desktop) Subjective Physical Therapy Visit Type Type Initial Evaluation Visit Start Time 13:50 Visit Stop Time 14:25 Number of CHISEL TRIMMER Visits 0 Physical Therapy Visit Comments Patient Comments agreeable to do PT Therapy Pain Assessment Pain Present Pain Present Denied Pain M4 PT-IP Mobility and Gait Start: 02/17/25 14:40 Freq: NEEDED Status: Active Protocol: Document 02/17/25 13:50 AB (Rec: 02/17/25 15:00 AB Desktop) PT-Bed Mobility Assessment Supine to Sit Supine to Sit Standby Assistance Sit to Supine Sit to Supine Standby Assistance PT-Transfer Assessment Sit to and From Stand Sit to and from Contact Guard Assistance,1 Person Assistance,Use of Stand Upper Extremities Equipment Transfer Assistive None,Gait Belt Device Orthotic/Prosthetic No Devices or Brace: Transfers Transfer Destination Toilet Transfer Technique ambulated Transfer Ability Level of Assist Contact Guard Assistance,1 Person Assistance,Use of Upper Extremities Comments Mobility Comments pt in bed and spouse in room. obtained PLOF and home set up. BP: 148/78 o2 sat: 96 HI: 73. pt is impulsive. requested to use the toilet and just got up to sit up. cued pt for safety. assisted with taking SCDs off. sit to stand CGA and ambulated to the toilet without AD. unsteady gait. ambulated from the toilet to the sink. needs to be directed to where the sink is. pt with L sided inattention and needs cues to look to the L. able to maintain standing balance CGA while completing handwashing. pt agreed to walk in the hallway. pt ambulated towards the stairs without AD CGA. presents with unsteady antalgic gait with increase R sided trunk leaning needing increase time to rebalance. cued pt to slow down. pt completed up/down steps using B rails CGA and completed again using L rail ascending CGA. pt ambulated back towards his room . informed pt to look out for his room. PT provided room number. pt with left sided inattention and missed his room but also seems to have problem solving issues; pt kept walking farther from his room even though PT pointed out that he missed it already. needed max cues to redirect pt to turn around. pt requested to lay back in bed. sit to supine SBA. positioned pt in bed. call light and table placed within reach. informed pt and spouse regarding acute rehab vs home with 24/ and outpt PT. spouse prefers to take pt home. Gait Assessment Gait Gait Assistance Contact Guard Assist Required: Distance (Feet) 150 Able to Maintain Yes Weight Bearing Status During Gait Assistive Devices Assistive Device None,Gait Belt Orthotic/Prosthetic No Devices or Brace: Gait Deviations General Gait Pattern Antalgic,Decreased Stride Length,Decreased Feet Clearance Factors Limiting Gait Function Factors Limiting Decreased Activity Tolerance,Decreased Strength, Gait Function Difficulty Following Directions,Poor Balance,Poor Safety Awareness,Respiratory Distress Stair Climbing Assessment Evaluation Level of Assist On Contact Guard Assistance Stairs Devices Stair Climbing Left Railing,Right Railing Assistive Devices Technique/Endurance Stair Climbing Ascend and Descend Direction Stair Climbing Step Over Step Technique Number of Steps 3 Climbed Query Text: Stair Climbing Set # 2 Repetitions (reps) PT-Balance Assessment Sitting Balance and Reactions Static Sitting Normal Balance Ability Dynamic Sitting Good Balance Ability Standing Balance and Reactions Static Standing Good Balance Ability Dynamic Standing Fair Balance Ability Device Used without AD M5 PT-IP Objective Assessments Start: 02/17/25 14:40 Freq: NEEDED Status: Active Protocol: Document 02/17/25 13:50 AB (Rec: 02/17/25 15:00 AB Desktop) Orientation Orientation/Cognition Level of Alertness Alert Orientation Name,Place,Situation Language Function No Deficits Noted Ability Safety Awareness Decreased Safety Awareness Memory Description Short Term Impaired Gross Range of Motion Lower Extremity ROM Assessment Within Functional Limits Strength Lower Extremity Strength Assessment Within Functional Limits Sensation Assessment Sensation Gross Sensation WNL Muscle Tone Muscle Tone WNL Yes M6 PT-IP Treatment Start: 02/17/25 14:40 Freq: NEEDED Status: Active Protocol: Document 02/17/25 13:50 AB (Rec: 02/17/25 15:00 AB Desktop) Physical Therapy Treatment Education Education Provided Safety M7 PT-IP Assessment and Plan Start: 02/17/25 14:40 Freq: NEEDED Status: Active Protocol: Document 02/17/25 13:50 AB (Rec: 02/17/25 15:00 AB Desktop) PT Summary Assessment and Plan Potential Rehabilitation Fair Potential Status of Condition Evolving at Evaluation Summary Impairments Pain,ROM,Strength,Balance,Coordination,Sensation,Tone, Cognition,Bed Mobility,Transfers,Gait,Activity Tolerance Assessment Summary pt is an 89 y/o M who is admitted to r/o CVA. pt requiring CGA for transfers and ambulation but needing max cues for safety and redirections. pt with L sided inattention and decrease safety awareness. pt with antalgic gait with increase R sided leaning during ambulation. Will assess progress next tx session and assess if pt will be appropriate to use an AD. pt will require 24/7 assist. informed spouse regarding acute rehab vs home 24/7 assist and outpt PT. spouse prefers pt to go home. will continue to assess. Goals Bed Mobility Goal Independent Transfer Goal Independent Gait Goal Independent Gait Distance 200 Other Goals up/down 6 steps L rail ascending SBA up/down 14 steps B rails SBA Days to Meet Goals 10 Frequency of Treatment Frequency Of Once a Day Treatment Treatment Plan Physical Therapy Bed Mobility Training,Transfer Training,Gait Training, Treatment Plan Therapeutic Exercise,Balance Retraining,Discharge Planning,Hot or Cold Pack,Neuromuscular Re-ed, Coordination Retraining,Manual Therapy Other Assess ambulation and if use of an AD is appropriate Recommendations and Next Treatment Focus Precautions Other Precautions falls Recommendations To Nursing Amount of Assist 1 Person Assist Needed Discharge Recommendations PT Discharge Home with 24/7 Assist Available,Acute Rehab,Outpatient Recommendations PT Transportation Needs Private Vehicle at Discharge - PT assist 1
--- NOTE | 2025-02-17 13:57 | PM.HP.IH.1 ---
History of Present Illness History of Present Illness Date Patient Seen: 02/17/25 Chief complaint: Code Stroke Narrative: Pt is an 89yo man with bladder cancer, atrial flutter/fibrillation with pacemaker not currently anticoagulated, hx of prostate cancer, HTN, and meningioma who presented with confusion, left facial droop, and unsteady gait. The pts last known well was 10:30pm prior to bed. He got up to use the restroom in the night, and his notes that she had to redirect him the right way to get into the bathroom. When he came back out, instead of getting into bed he walked towards the sliding door that leads outside. At that point she also noticed a left sided facial droop and that he wasn't using his left arm well. She called 911 and he was brought to the ED. The pt today denies any recent chest pain, SOB, dizziness, headache, difficulty speaking, word finding, difficulty swallowing, or LOC. He states that he had been feeling completely normal. In the ED, the pts NIH stroke score was 3. CT/CTA was completed that was initially read as normal. Lab work and EKG were unrevealing. The pts symptoms began to improve. Repeat read of the CT showed a likely right M1 occlusion and high grade right THE[employer] DES[employer] stenosis. Due to symptoms improving already, it was not deemed necessary to pursue more aggressive treatment strategies by Neurology through the . The pt currently reports feeling well. He denies any ongoing symptoms such as weakness on the left side. He states that he feels back to normal. He and his both report that at baseline he has some name finding difficulties, but is otherwise cognitively intact. [facility] Medical History Recurrent malignant neoplasm of bladder Atrial flutter (~10/2019) Meningioma, cerebral History of urinary tract infection Bladder cancer Lesion of bladder Pacemaker History of prostate cancer Gross hematuria Tubular adenoma Hearing loss Plantar warts (~2004) Abnormal chest xray Osteoporosis Mumps Measles Herpes (~1959) Chicken pox Vertigo (~2007) Tinnitus (~1972) History of elevated PSA (~1992) AV block (~2014) Prostate cancer (~1992) Surgical History Hx of cystoscopy (04/06/23) Hx of cystoscopy (12/07/22) H/O transurethral resection of bladder tumor (TURBT) (10/27/22) Hx of bilateral cataract extraction (2017) Hx of total knee arthroplasty (~2021) Anesthesia History of appendectomy (~1955) History of prostatectomy (~1992) Pacemaker (~2012) S/P ablation of atrial fibrillation Family History Father Cancer History of heart disease Mother Pneumonia Stroke Brother Prostate cancer Sister Autoimmune disease Sister Breast cancer Social History marital status: household members: spouse lives independently: Yes education level: other occupational status: other Smoking Status: Former smoker Tobacco: How many years used: 25 alcohol intake: current substance use type: marijuana Meds Home Medications and Allergies Home Medications ?Medication ?Instructions ?Recorded ?Confirmed ?Type losartan 25 mg tablet See Rx Instructions .Route 02/23/23 02/17/25 Rx .COMPLEX #90 tabs metoprolol tartrate 25 mg tablet 25 mg PO DAILY 04/06/23 02/17/25 History Allergies Allergy/AdvReac Type Severity Reaction Status Date / Time morphine (MORPHINE) Allergy Intermediate halluncinat Verified 08/16/23 09:08 ions Sulfa (Sulfonamide Allergy Mild fever Verified 08/16/23 09:08 Antibiotics) vibegron (From Gemtesa) AdvReac Severe Hallucinating, Verified 08/16/23 09:08 GI upset Exam Vital Signs (past 8 hours): - 02/17/25 06:12 02/17/25 06:30 02/17/25 06:30 Temperature Pulse Rate 71 71 Respiratory Rate 19 16 Blood Pressure 143/88 H Pulse Oximetry 96 94 02/17/25 07:00 02/17/25 07:00 02/17/25 07:30 Temperature Pulse Rate 69 73 Respiratory Rate 19 14 Blood Pressure 147/93 H Pulse Oximetry 97 99 02/17/25 07:30 02/17/25 08:01 02/17/25 08:03 Temperature Pulse Rate 89 72 Respiratory Rate 10 L Blood Pressure 155/99 H Pulse Oximetry 97 98 02/17/25 08:03 02/17/25 08:30 02/17/25 08:30 Temperature Pulse Rate 73 Respiratory Rate 14 Blood Pressure 149/87 H 142/97 H Pulse Oximetry 96 02/17/25 09:00 02/17/25 09:00 02/17/25 09:30 Temperature Pulse Rate 70 70 Respiratory Rate 27 H 17 Blood Pressure 146/91 H Pulse Oximetry 94 96 02/17/25 09:31 02/17/25 09:31 02/17/25 10:00 Temperature Pulse Rate 72 Respiratory Rate 12 Blood Pressure 153/98 H 148/94 H Pulse Oximetry 96 02/17/25 10:00 02/17/25 10:18 Temperature 96.7 F L Pulse Rate 72 87 Respiratory Rate 21 17 Blood Pressure 158/96 H Pulse Oximetry 97 97 Oxygen Delivery Method Room Air Narrative Exam Narrative: Gen: NAD, sitting comfortably in bed, appears well, speaking easily in complete sentences HEENT: normocephalic, atraumatic, sclera clear Neck: no JVD CV: RRR, no murmurs Resp: clear to auscultation bilaterally Abd: soft, nontender, nondistended Ext: no edema Neuro: A&Ox3, is very slow to respond to some questions and commands (not baseline), 5/5 strength bilateral UE and LE, sensation intact UE and LE, CN II-XII intact, significant lack of visual acuity in left eye particularly lateral visual pepe compared to right eye Objective Labs 02/17/25 05:20 02/17/25 05:20 Labs: Laboratory Results - last 24 hr 02/17/25 02/17/25 02/17/25 05:20 05:39 06:43 WBC 5.7 RBC 4.74 Hgb 16.5 Hct 47.7 MCV 100.8 H MCH 34.7 H MCHC 34.5 RDW 13.5 Plt Count 176 Neut % (Auto) 42.5 L Lymph % (Auto) 36.8 [place] % (Auto) 16.0 H Eos % (Auto) 3.4 Baso % (Auto) 1.3 Neut # (Auto) 2400 Lymph # (Auto) 2100 [place] # (Auto) 900 Eos # (Auto) 200 Baso # (Auto) 100 PT 12.6 H INR 1.1 APTT 28 Sodium 135 L Potassium 4.4 Chloride 103 Carbon Dioxide 23 BUN 24 H Creatinine 1.29 H Estimated GFR 53 L BUN/Creatinine Ratio 18.6 Glucose 99 POC Whole Bld Glucose 94 Calcium 9.4 Total Bilirubin 1.0 AST 42 ALT 34 Alkaline Phosphatase 63 Total Creatine Kinase 50 L Troponin I 0.015 Total Protein 8.2 Albumin 4.6 Globulin 3.6 Albumin/Globulin Ratio 1.3 U Opiates 300ng/mL cut Negative Ur Oxycodone Screen Negative Urine Methadone Screen Negative Ur Barbiturates Screen Negative U Tricyclic Antidepress Negative Ur Phencyclidine Scrn Negative Ur Amphetamines Screen Negative U Methamphetamines Scrn Negative Ur MDMA Scrn (Ecstasy) Negative U Benzodiazepines Scrn Negative Urine Cocaine Screen Negative U Marijuana (THC) Screen Negative Urine pH Normal Urine Specific [place] Normal Ur Creatinine Normal Assessment & Plan Assessment & Plan narrative: Pt is an 89yo man with bladder cancer, atrial flutter/fibrillation with pacemaker not currently anticoagulated, hx of prostate cancer, HTN, and meningioma who presented with confusion, left facial droop, and unsteady gait, found to have CVA on CT scan. 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 Also high grade right proximal [employer] stenosis. - Recommend keep head of bed at 30 degrees or higher - Permissive hypertension, hold home Losartan and Metoprolol - Pt not candidate for MRI due to pacemaker - Due to symptoms improving, no need for additional intervention at this time - Start Aspirin, Atorvastatin - Echocardiogram ordered - PT/OT/speech evals - Telemetry 2) Atrial flutter/fibrillation: Ventricular pacing with pacemaker, rate controlled - Not candidate for anticoagulation due to bleeding from bladder cancer - Aspirin as above 3) HTN: - Hold antihypertensives as above FEN: Cardiac diet Code: DNR DVT ppx: Lovenox Dispo: Pending completion of above work-up. Likely ready for d/c tomorrow. Time-Based Coding :: [TOTAL MINUTES] spent with patient and on the chart (including review of chart, obtaining history, exam, reviewing outside data, placing orders, documenting exam and treatment plan, and counseling patient) on [DATE]. Quality VTE Deep Vein Thrombosis/Pulmonary Embolism Present on Admission: No [facility] PROFEE Recovery Unit Operator Document charge(s): Yes Charge Codes Initial inpatient/observation care: [id number]
[2025-02-17] MEDS: ATORVASTATIN 20 MG TABLET PO (21:33)
[2025-02-18] VITALS: BP 157/98; PULSE 88; RESP 17; TEMP 36.6; O2SAT 97
[2025-02-18 04:00] VITALS: BP 157/98; PULSE 75; RESP 16; TEMP 36.6; O2SAT 97
[2025-02-18 07:04] LABS: Cholesterol 233 mg/dL (140-199); HDL Cholesterol 47 mg/dL (40-60); Triglycerides 97 mg/dL (35-150)
[2025-02-18 07:08] LABS: Hemoglobin A1C% w Est Avg Glu 5.7 % (4.0-6.0)
[2025-02-18 08:49] VITALS: BP 152/100; PULSE 71; RESP 18; TEMP 36.4; O2SAT 99
[2025-02-18] MEDS: ASPIRIN EC 325 MG TABLET PO (09:37)
[2025-02-18] MEDS: ENOXAPARIN 40 MG/0.4 ML SYRINGE SUBCUT (09:38)
[2025-02-18 11:24] VITALS: BP 147/89; PULSE 70; RESP 18; TEMP 36.1; O2SAT 96
--- NOTE | 2025-02-18 11:47 | P.DS_ITS ---
History of Present Illness History of Present Illness Date Patient Seen: 02/18/25 Chief complaint: Code Stroke Narrative: Pt is an 89yo man with bladder cancer, atrial flutter/fibrillation with pacemaker not currently anticoagulated, hx of prostate cancer, HTN, and meningioma who presented with confusion, left facial droop, and unsteady gait. The pts last known well was 10:30pm prior to bed. He got up to use the restroom in the night, and his notes that she had to redirect him the right way to get into the bathroom. When he came back out, instead of getting into bed he walked towards the sliding door that leads outside. At that point she also noticed a left sided facial droop and that he wasn't using his left arm well. She called 911 and he was brought to the ED. The pt today denies any recent chest pain, SOB, dizziness, headache, difficulty speaking, word finding, difficulty swallowing, or LOC. He states that he had been feeling completely normal. In the ED, the pts NIH stroke score was 3. CT/CTA was completed that was initially read as normal. Lab work and EKG were unrevealing. The pts symptoms began to improve. Repeat read of the CT showed a likely right M1 occlusion and high grade right GEOSPATIAL TECHNOLOGIST stenosis. Due to symptoms improving already, it was not deemed necessary to pursue more aggressive treatment strategies by Neurology through the . The pt currently reports feeling well. He denies any ongoing symptoms such as weakness on the left side. He states that he feels back to normal. He and his both report that at baseline he has some name finding difficulties, but is otherwise cognitively intact. Discharge Providers Provider Date of admission: 02/17/25 08:48 Discharge Date: 02/18/25 Primary care physician: Tami Gomez MD Consults: 02/17/25 10:30 Consult to Discharge Planning Routine Comment: Consult to Occupational Therapy Evaluate & Treat Comment: Physician Instructions: Evaluate and treat Consult to Physical Therapy Evaluate & Treat Comment: Physician Instructions: Evaluate and Treat Consult to Speech Therapy Evaluate & Treat Comment: Physician Instructions: Evaluate and treat Discharge provider: Daisy Patterson MD Summary Hospital Course Discharge Diagnosis: CVA Atrial flutter/fibrillation HTN Hospital Course: The pt presented with left sided symptoms concerning for CVA with CT scan confirming with right M1 thromboembolism and high grade right proximal GEOSPATIAL TECHNOLOGIST stenosis. His symptoms were already nearly resolved at the time of admission, and the decision was made that thrombectomy was not appropriate. The pts antihypertensives were held while he was hospitalized to allow for permissive hypertension. He was started on Aspirin and Atorvastatin. Physical therapy was consulted, and noticed some left sided inattention, right sided trunk leaning, and the pt being slow to respond to queues. This provider noticed some left sided visual deficits and slow response to questions. The pt and his declined acute rehab, and prefer to return home. Echocardiogram was completed the day of discharge (results still pending). The pt will need speech and physical therapy as an outpatient as well as Ophtho examination. Status at Discharge Cognitive/behavioral status at discharge: oriented Functional status at discharge: independent ambulation Overall status at discharge: patient is progressing back to baseline Exam Vital Signs (past 8 hours): - 02/18/25 04:00 02/18/25 08:49 02/18/25 11:24 Temperature 97.8 F 97.6 F 97.0 F L Pulse Rate 75 71 70 Respiratory Rate 16 18 18 Blood Pressure 157/98 H 152/100 H 147/89 H Pulse Oximetry 97 99 96 Oxygen Flow Rate 0 Oxygen Delivery Method Room Air Oxygen Flow Rate 0 Narrative Exam Narrative: Gen: NAD, sitting comfortably in bed, appears well, speaking easily in complete sentences CV: RRR, no murmurs Resp: clear to auscultation bilaterally Abd: soft, nontender, nondistended Ext: no edema Objective Labs 02/17/25 05:20 02/17/25 05:20 Labs: Laboratory Results - last 24 hr 02/18/25 05:36 Hemoglobin A1c 5.7 Triglycerides 97 Cholesterol 233 H LDL Cholesterol, Calc 167 H HDL Cholesterol 47 [facility] Medical History Recurrent malignant neoplasm of bladder Atrial flutter (~10/2019) Meningioma, cerebral History of urinary tract infection Bladder cancer Lesion of bladder Pacemaker History of prostate cancer Gross hematuria Tubular adenoma Hearing loss Plantar warts (~2004) Abnormal chest xray Osteoporosis Mumps Measles Herpes (~1959) Chicken pox Vertigo (~2007) Tinnitus (~1972) History of elevated PSA (~1992) AV block (~2014) Prostate cancer (~1992) Surgical History Hx of cystoscopy (04/06/23) Hx of cystoscopy (12/07/22) H/O transurethral resection of bladder tumor (TURBT) (10/27/22) Hx of bilateral cataract extraction (2017) Hx of total knee arthroplasty (~2021) Anesthesia History of appendectomy (~1955) History of prostatectomy (~1992) Pacemaker (~2012) S/P ablation of atrial fibrillation Family History Father Cancer History of heart disease Mother Pneumonia Stroke Brother Prostate cancer Sister Autoimmune disease Sister Breast cancer Social History marital status: household members: spouse lives independently: Yes education level: other occupational status: other Smoking Status: Former smoker Tobacco: How many years used: 25 alcohol intake: current substance use type: marijuana Discharge Plan Discharge Plan Patient Disposition: Home Discharge orders & Medications Prescriptions: New atorvastatin 20 mg Tablet 20 mg PO BEDTIME Qty: 30 0RF oxybutynin chloride 5 mg Tablet 5 mg PO TID PRN (Reason: Bladder spasms) Qty: 90 0RF aspirin 81 mg tablet 81 mg PO DAILY Qty: 90 0RF Continued losartan 25 mg tablet See Rx Instructions .ROUTE .COMPLEX Qty: 90 3RF Dose Instruction: TAKE ONE TABLET BY MOUTH ONE TIME DAILY Rx Instructions: TAKE ONE TABLET BY MOUTH ONE TIME DAILY metoprolol tartrate 25 mg tablet 25 mg PO DAILY Follow up/Referrals: Tami Gomez MD [Primary Care Provider, Family Practice] - 1 Week Diet/Activity/Treatments Diet: Diet as Tolerated and Regular Visit Report/Discharge Packet Instructions: DI for Stroke-Ischemic Stand Alone Forms: Patient Portal/API, Stroke Signs & Symptoms Discharge Data Primary Care Provider: Tami Gomez Attending Provider: Daisy Patterson Admit Date/Time: 02/17/25 08:48 Quality VTE Deep Vein Thrombosis/Pulmonary Embolism Present on Admission: No IH PROFEE Charge Codes Discharge inpatient/observation: 10416
--- NOTE | 2025-02-18 13:28 | PT.IPTN ---
Physical Therapy Treatment Note M2 PT-IP Current Condition Start: 02/17/25 14:40 Freq: NEEDED Status: Active Protocol: Document 02/17/25 13:50 AB (Rec: 02/17/25 15:00 AB Desktop) Physical Therapy Current Condition Current Condition Evaluation Date 02/17/25 Treatment Diagnosis r/o CVA; difficulty in walking Onset Date 02/17/25 M3 PT-IP Subjective Start: 02/17/25 14:40 Freq: NEEDED Status: Active Protocol: Document 02/18/25 13:23 [facility] (Rec: 02/18/25 13:28 [facility] [id number]) Subjective Physical Therapy Visit Type Type Treatment Note Visit Start Time 12:28 Visit Stop Time 12:54 Number of MANAGER PROGRAMS Visits 0 Physical Therapy Visit Comments Patient Comments agreeable to work with therapy M4 PT-IP Mobility and Gait Start: 02/17/25 14:40 Freq: NEEDED Status: Active Protocol: Document 02/18/25 13:23 [facility] (Rec: 02/18/25 13:28 [facility] [id number]) PT-Transfer Assessment Sit to and From Stand Sit to and from Standby Assistance,Use of Upper Extremities Stand Equipment Transfer Assistive Gait Belt Device Orthotic/Prosthetic No Devices or Brace: Gait Assessment Gait Gait Assistance Standby Assistance Required: Distance (Feet) 300 Able to Maintain Yes Weight Bearing Status During Gait Assistive Devices Assistive Device Gait Belt Gait Deviations General Gait Pattern Decreased Feet Clearance Factors Limiting Gait Function Factors Limiting Poor Balance Gait Function Comments Gait Comments pt sitting EOB and stood SBA then amb w/o AD to stairs SBA w/occ cues for avoiding things in hallway. He went up/down stairs w/1 rail SBA then amb back to room and further around hospital SBA w/min cues for objects. LEft with call light in reach Stair Climbing Assessment Evaluation Level of Assist On Standby Assistance Stairs Devices Stair Climbing Left Railing Assistive Devices Technique/Endurance Stair Climbing Ascend and Descend Direction Stair Climbing Step Over Step Technique Number of Steps 3 Climbed Stair Climbing Set # 3 Repetitions (reps) M5 PT-IP Objective Assessments Start: 02/17/25 14:40 Freq: NEEDED Status: Active Protocol: Document 02/17/25 13:50 AB (Rec: 02/17/25 15:00 AB Desktop) Orientation Orientation/Cognition Level of Alertness Alert Orientation Name,Place,Situation Language Function No Deficits Noted Ability Safety Awareness Decreased Safety Awareness Memory Description Short Term Impaired Gross Range of Motion Lower Extremity ROM Assessment Within Functional Limits Strength Lower Extremity Strength Assessment Within Functional Limits Sensation Assessment Sensation Gross Sensation WNL Muscle Tone Muscle Tone WNL Yes M6 PT-IP Treatment Start: 02/17/25 14:40 Freq: NEEDED Status: Active Protocol: Document 02/18/25 13:23 [facility] (Rec: 02/18/25 13:28 [facility] [id number]) Physical Therapy Treatment Education Education Provided Safety Other Treatments Other Treatment edu re: setting up OP PT and QUALITY FACILITATOR and calling JER[facility]Y to Performed get in. Given options re: therapy clinics in town M7 PT-IP Assessment and Plan Start: 02/17/25 14:40 Freq: NEEDED Status: Active Protocol: Document 02/18/25 13:23 [facility] (Rec: 02/18/25 13:28 [facility] [id number]) PT Summary Assessment and Plan Potential Rehabilitation Good Potential Status of Condition Stable at Evaluation Summary Impairments Strength,Balance,Gait,Activity Tolerance Assessment Summary Pt did well with moblity overall w/mild dec stability notable but very supportive and plans to get OP therapies set up when they DC home. He does still tend to have dec awareness of objects to L and was encouraged to do screening games like I spy and get set up with OP care after DC. Goals Bed Mobility Goal Independent Transfer Goal Independent Gait Goal Independent Gait Distance 200 Other Goals up/down 6 steps L rail ascending SBA up/down 14 steps B rails SBA Days to Meet Goals 10 Frequency of Treatment Frequency Of Once a Day Treatment Treatment Plan Physical Therapy Bed Mobility Training,Transfer Training,Gait Training, Treatment Plan Therapeutic Exercise,Balance Retraining,Discharge Planning,Hot or Cold Pack,Neuromuscular Re-ed, Coordination Retraining,Manual Therapy Other cont to work on screening w/gait Recommendations and Next Treatment Focus Precautions Other Precautions falls Recommendations To Nursing Amount of Assist Standby Assistance Needed Discharge Recommendations PT Discharge Home with Assistance,Outpatient PT Recommendations Transportation Needs Private Vehicle at Discharge - PT assist 1
--- NOTE | 2025-02-18 15:18 | PC.NURSE ---
Patient is A&OX4, very subtle droop noted to L corner of mouth. No slurred speech or trouble swallowing. VSS, afebrile.MD Patterson at bedside clearing patient to d/c home after echo and therapy eval. Echo completed at bedside and PT at bedside cleariing patient. He and verbalize acknowledgement of medications, return of symptoms to return to the ED as well as follow up care. He is escorted via w/ch with all of his belongings by RN to private vehicle with today for discharge home at approximately 1420
== END 2025-02-18 14:22 | disposition home or self-care (01) | DRG 65 ==
LOC: ED 07:00 → AC 08:51
PROVIDERS: Family Medicine; Admitting Provider Family Medicine; Emergency Provider Emergency Medicine; PCP Family Medicine; Referring Provider Emergency Medicine; Visit Provider Family Medicine
DX: I63.311 Cerebral infarction due to thrombosis of right middle cerebral artery (principal); I48.92 Unspecified atrial flutter; I63.531 Cerebral infarction due to unspecified occlusion or stenosis of right posterior cerebral artery; I10 Essential (primary) hypertension; I48.91 Unspecified atrial fibrillation; R29.703 NIHSS score 3; R29.810 Facial weakness; R26.81 Unsteadiness on feet; R29.706 NIHSS score 6; Z66 Do not resuscitate; Z95.0 Presence of cardiac pacemaker; Z87.891 Personal history of nicotine dependence; Z85.46 Personal history of malignant neoplasm of prostate
CPT/HCPCS: 36415; 70450; 70496; 70498; 71045; 80053; 80061; 80305; 81003; 82550; 82962; 83036; 84484; 85025; 85610; 85730; 93005; 93010; 93306; 97116; 97162; 97530; 99223; 99238; 99284; 99291; G0378; J1650; Q9967

== ENCOUNTER 2025-02-19 09:33 | Inpatient (IN) | payer MEDICARE, SELFPAY ==
[2025-02-17 12:11] VITALS: BMI 29.1
[2025-02-19] VITALS (16 sets, daily range): BP systolic 116–167; BP diastolic 59–108; PULSE 68–81; RESP 15–24; TEMP 36.2–36.7; O2SAT 94–100; BMI 29.2
--- NOTE | 2025-02-19 09:34 | DI.CT.S_ITS ---
PROCEDURE: CT STROKE INDICATIONS: Positive BE-FAST, Stroke symptoms TECHNIQUE: Noncontrast 4.5 mm thick angled axial sections acquired from the foramen magnum to the vertex, with coronal reformats. For radiation dose reduction, the following was used: automated exposure control, adjustment of mA and/or kV according to patient size. COMPARISON: [facility], CT, CT ANGIO HEAD AND NECK, 02/17/2025, 5:29. [facility], CT, CT HEAD/BRAIN WO CON, 02/26/2022, 10:04. [facility], CT, CT STROKE, 02/17/2025, 5:29. FINDINGS: Image quality: Diagnostic. CSF spaces: Basal cisterns are patent. No extra-axial fluid collections. The ventricles are symmetric in size and shape. Brain: Definite changes of subacute infarct involving the right temporal lobe. This has developed since the previous study from 2 days ago. Again noted is a middle cranial fossa calcified meningioma. It measures 1.7 cm. There is cerebral volume loss, with resultant ventricular and sulcal prominence. There are periventricular and deep white matter chronic small vessel ischemic changes. There is intracranial internal carotid artery atherosclerosis. Skull and face: Calvarium and visualized facial bones appear intact, without suspicious lesions. Sinuses: Visualized sinuses and mastoids are clear. IMPRESSION: Subacute infarct involving the right temporal lobe. Comment: Findings were discussed with Dr. Nix on 02/19/2025 at 0945 hours This study fulfills neurological imaging criteria for inclusion or exclusion of acute stroke therapies based on available published neurological guidelines. Dictated by: Lico Adams M.D. on 02/19/2025 at 9:44 Approved by: Lico Adams M.D. on 02/19/2025 at 9:51
--- NOTE | 2025-02-19 09:34 | EKG_ITS ---
[address] [address] [address], [place] [address] Test Date: 2025-02-19 Pat Name: Anselmo Castro Department: Room: Gender: Male Doubler Operator: YUE : [id number] Requested By: Order Number: [id number] Reading MD: Ruddy Kaplan MD Measurements Intervals [place] Rate: 70 P: UT: QRS: 270 QRSD: 152 T: 87 QT: 436 QTc: 470 Interpretive Statements Ventricular-paced rhythm Electronically Signed On 02-19-2025 11:57:28 PDT by Ruddy Kaplan MD
--- NOTE | 2025-02-19 09:34 | DI.RAD.S_ITS ---
PROCEDURE: XR CHEST 1V INDICATIONS: Possible stroke TECHNIQUE: One view of the chest was acquired. COMPARISON: [facility], , XR CHEST 1V, 02/17/2025, 5:39. FINDINGS: Surgical changes and devices: Pacemaker. Lungs and pleura: Lungs are clear. No pleural effusions or pneumothorax. Mediastinum: Mediastinal contours appear normal. Heart size is normal. Bones and chest wall: No suspicious bony lesions. Overlying soft tissues appear unremarkable. IMPRESSION: No acute cardiopulmonary abnormality is seen. Dictated by: Lico Adams M.D. on 02/19/2025 at 10:15 Approved by: Lico Adams M.D. on 02/19/2025 at 10:18
--- NOTE | 2025-02-19 09:34 | DI.CT.S_ITS ---
PROCEDURE: CT ANGIO HEAD AND NECK INDICATIONS: stroke like sx TECHNIQUE: After the administration of intravenous contrast, 1 mm thick sections acquired from the aortic arch through the [place]. MIP reformats of the arterial vasculature were utilized. For radiation dose reduction, the following was used: automated exposure control, adjustment of mA and/or kV according to patient size. COMPARISON: [facility], CT, CT STROKE, 02/19/2025, 9:40. [facility], CT, CT HEAD/BRAIN WO CON, 09/09/2021, 12:24. [facility], CT, CT ANGIO HEAD AND NECK, 02/17/2025, 5:29. FINDINGS: Cerebral CT Angiogram: Internal carotid arteries: Atherosclerotic vascular calcification in the cavernous and supraclinoid segments bilateral ICA without significant stenosis or aneurysm. Anterior cerebral arteries: Unremarkable. No significant stenosis. No occlusion. No aneurysm. Middle cerebral arteries: Distal right M1 thrombus has recannulated is now patent. There is short-segment thrombus in a proximal M2 segment with immediate reconstitution Posterior cerebral arteries: Persistent right P1 LAND DEVELOPMENT PROJECT MANAGER occlusion with trace collateralization. Scarce diminutive distal right LAND DEVELOPMENT PROJECT MANAGER vessels noted. Left LAND DEVELOPMENT PROJECT MANAGER unremarkable. Basilar artery: Unremarkable. No significant stenosis. No occlusion. No aneurysm. Vertebral arteries: Unremarkable as visualized. Dural venous sinuses: Unremarkable given phase of enhancement. Other: Extra-axial hypervascular right temporal probable meningioma measures 1.8 x 1.5 cm, previously 1.6 by 1.[address] Angiogram: Internal carotid arteries: Unremarkable. No significant stenosis. No dissection or occlusion. Common carotid arteries: Unremarkable. No significant stenosis. No dissection or occlusion. External carotid arteries: Unremarkable. No occlusion. Vertebral arteries: Left vertebral artery arises directly from the aortic arch, an anatomic variant. Aortic Arch and Mediastinum: Partially visualized aortic arch unremarkable without evidence of aneurysm. Origins of the great vessels unremarkable. 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 Short segment M2 occlusion with immediate reconstitution. Right P1 LAND DEVELOPMENT PROJECT MANAGER complete occlusion, stable. Diminutive and thready distal right LAND DEVELOPMENT PROJECT MANAGER Slowly growing right temporal meningioma. Approved by: Ilia Tom M.D. on 02/19/2025 at 9:08
[2025-02-19 09:45] LABS: Add Manual Diff / Slide Review NO; Hematocrit 48.5 % (41-53); Hemoglobin 16.9 g/dL (13.5-17.5); Lymphocytes Absolute Auto 1800 /uL (1100-4500); Mean Corpuscular HGB Conc 34.8 % (30-36); Mean Corpuscular Hemoglobin 35.1 PG (26-34); Mean Corpuscular Volume 100.7 fL (80-100); Platelet Count 177 X10^3/uL (150-400)
[2025-02-19 09:51] LABS: INR 1.1 (0.9-1.3); Prothrombin Time 12.5 SECONDS (9.4-12.5)
[2025-02-19 09:54] LABS: PTT Partial Thromboplastin Tim 30 SECONDS (25.1-36.5)
--- NOTE | 2025-02-19 09:54 | ED.NEUROSD ---
HPI - Neuro Symptoms/Deficit General Chief Complaint: Neuro Symptoms/Deficit Stated Complaint: slurred speech Time Seen by Provider: 02/19/25 09:47 History of Present Illness HPI Narrative: 89-year-old male patient with a history of atrial fibrillation, bladder cancer, hypertension, dyslipidemia and pacemaker placement who was admitted 2 days ago and discharged yesterday for a resolving right CVA with left-sided symptoms. No MRI was done. His symptoms at that time were confusion, unsteady gait and left facial droop. Patient had worsening symptoms starting at 4:00 a.m. this morning according to his . This includes slurred speech, left facial droop and worsening left-sided weakness. Related Data Home Medications ?Medication ?Instructions ?Recorded ?Confirmed metoprolol tartrate 25 mg tablet 25 mg PO DAILY 04/06/23 02/17/25 Previous Rx's ?Medication ?Instructions ?Recorded losartan 25 mg tablet See Rx Instructions .Route 02/23/23 .COMPLEX #90 tabs aspirin 81 mg tablet 81 mg PO DAILY #90 tabs 02/18/25 atorvastatin 20 mg tablet 20 mg PO BEDTIME #30 tabs 02/18/25 oxybutynin chloride 5 mg tablet 5 mg PO TID PRN Bladder spasms #90 02/18/25 tabs Allergies Allergy/AdvReac Type Severity Reaction Status Date / Time morphine (MORPHINE) Allergy Intermediate halluncinat Verified 08/16/23 09:08 ions Sulfa (Sulfonamide Allergy Mild fever Verified 08/16/23 09:08 Antibiotics) vibegron (From Gemtesa) AdvReac Severe Hallucinating, Verified 08/16/23 09:08 GI upset Review of Systems Review of Systems ROS Unobtainable: All systems reviewed & are unremarkable except as noted in HPI and below Neurologic Neurologic: Reports as per HPI Patient History Medical History Recurrent malignant neoplasm of bladder Atrial flutter (~10/2019) Meningioma, cerebral History of urinary tract infection Bladder cancer Lesion of bladder Pacemaker History of prostate cancer Gross hematuria Tubular adenoma Hearing loss Plantar warts (~2004) Abnormal chest xray Osteoporosis Mumps Measles Herpes (~1959) Chicken pox Vertigo (~2007) Tinnitus (~1972) History of elevated PSA (~1992) AV block (~2014) Prostate cancer (~1992) Surgical History Hx of cystoscopy (04/06/23) Hx of cystoscopy (12/07/22) H/O transurethral resection of bladder tumor (TURBT) (10/27/22) Hx of bilateral cataract extraction (2018) Hx of total knee arthroplasty (~2021) Anesthesia History of appendectomy (~1955) History of prostatectomy (~1992) Pacemaker (~2012) S/P ablation of atrial fibrillation Family History Father Cancer History of heart disease Mother Pneumonia Stroke Brother Prostate cancer Sister Autoimmune disease Sister Breast cancer Social History marital status: household members: spouse lives independently: Yes education level: other occupational status: other Smoking Status: Former smoker Tobacco: How many years used: 25 alcohol intake: current substance use type: marijuana alcohol intake frequency: 0-2 drinks per day Exam Narrative Exam Narrative: General: Alert and conversant. No distress. Appears well nourished and well hydrated Craniofacial: Left facial droop. No evidence of trauma. Nontender and no swelling. Eyes: PERRLA EOMI conjunctiva clear HEENT: Oropharynx clear with no swelling, exudate or asymmetry of the pharynx. Nares clear. No sinus tenderness Neck: No tenderness or adenopathy. No meningismus. No JVD Lungs: Clear to auscultation with good air movement. No wheezing, rales or rhonchi. No respiratory distress Cardiac: Regular rate and rhythm with no appreciable murmur or gallop Abdomen: Soft, nontender with no distention or masses. Normal bowel sounds. No rebound or guarding Musculoskeletal: Exam of the extremities, axial spine and ribcage reveals no deformity, bony tenderness or swelling. Range of motion intact Neuro: Alert and oriented. Left facial droop with mildly slurred speech. Left upper extremity has 4+ strength compared to 5+ on the right. Left lower extremity has full strength. Cerebellar intact. NIH score 6 Skin: Warm and normal color. No rashes Psychological: Normal affect and interaction. No evidence of delusion or psychosis. Normal mood. Initial Vital Signs Initial Vital Signs: Vital Signs Blood Pressure 145/79 H 02/19/25 09:46 Course Course Course Narrative: 09:55 I received a call from Radiology reporting that the patient has a moderate to size right temporal subacute infarct. Evolving from his admission over the last 2-3 days. 10:50 I discussed the patient's care with Dr. Mendosa, neuro stroke team at [facility]. He recommends initial high-dose dual antiplatelet and then continued antiplatelet therapy for 3 months. High-dose statin therapy, admission for observation and stabilization. Auto regulation of hypertension. MRI follow up. Determination of atrial fibrillation which may require anticoagulation. Also echocardiogram and outpatient 30 day cardiac monitoring in regard to his rhythm. 11:00 Patient took a full aspirin earlier this morning. Therefore I will not add anymore aspirin at this point. I did order 300 mg Plavix to start dual platelet therapy. Also added 40 mg atorvastatin since he is only on 20 mg. 12:15 I discussed the patient's care with Dr. Zurita, hospitalist covering for this patient's primary care team. She agrees to admit the patient for stroke care. Patient's symptoms are currently unchanged. Most recent blood pressure is 131/87. Orders Ordered: ED Orders 02/19/25 09:[address] angio head and neck Stat XR chest 1V Stat EKG-12 Lead Stat 02/19/25 09:37 Complete Blood Count AUTO DIFF Stat Comprehensive Metabolic Panel Stat PTT Partial Thromboplastin Javed Stat Prothrombin Time INR Stat Troponin & CK Cardiac Panel Stat 02/19/25 11:40 Urine Culture Stat Urine Drug Screen, Rapid Stat Urine Microscopic Stat Ondansetron HCl (Ondansetron 4 Mg/2 Ml Inj) 4 mg IV NOW PRN PRN Reason: Nausea And Vomiting Ondansetron HCl (Ondansetron 4 Mg Odt) 4 mg PO NOW PRN PRN Reason: Nausea And Vomiting Discontinued Medications Atorvastatin Calcium (Atorvastatin 20 Mg Tablet) 40 mg PO NOW ONE Stop: 02/19/25 11:12 Last Admin: 02/19/25 11:31 Dose: 40 mg Documented By: AASHISH Clopidogrel Bisulfate (Clopidogrel 75 Mg Tablet) 300 mg PO NOW ONE Stop: 02/19/25 11:12 Last Admin: 02/19/25 11:31 Dose: 300 mg Documented By: EB Vital Signs Vital signs: Vital Signs - 8 hr 02/19/25 09:46 02/19/25 09:47 02/19/25 09:50 Temperature 98.0 F Pulse Rate 73 76 Respiratory Rate 15 Blood Pressure 145/79 H 145/79 H Pulse Oximetry 97 94 Oxygen Delivery Method Room Air 02/19/25 10:00 02/19/25 10:30 02/19/25 11:00 Temperature Pulse Rate 81 74 72 Respiratory Rate 24 22 16 Blood Pressure Pulse Oximetry 95 95 94 Oxygen Delivery Method 02/19/25 11:10 02/19/25 11:10 02/19/25 11:30 Temperature Pulse Rate 77 75 Respiratory Rate 21 24 Blood Pressure 116/59 L Pulse Oximetry 96 95 Oxygen Delivery Method 02/19/25 11:31 02/19/25 11:31 Temperature Pulse Rate 73 Respiratory Rate 15 Blood Pressure 131/87 Pulse Oximetry 95 Oxygen Delivery Method MDM - Neuro Symptoms/Deficit Lab Data Attestation: I reviewed the patient's lab results. Lab results narrative: CBC reveals hemoglobin 16.9 and hematocrit 48.5 otherwise unremarkable. Chemistry reveals sodium 133 potassium 5.3. Otherwise unremarkable. 02/19/25 09:37 02/19/25 09:37 Labs: Lab Results 02/19/25 02/19/25 02/19/25 Range/Units 09:37 09:47 11:40 WBC 8.1 (4.5-11.0) X10^3/uL RBC 4.81 (4.5-5.9) X10^6/uL Hgb 16.9 (13.5-17.5) g/dL Hct 48.5 (41-53) % MCV 100.7 H (80-100) fL MCH 35.1 H (26-34) PG MCHC 34.8 (30-36) % RDW 13.5 (11.6-14.8) % Plt Count 177 (150-400) X10^3/uL Neut % (Auto) 61.1 (50-75) % Lymph % (Auto) 22.3 L (25-40) % [place] % (Auto) 14.2 H (3-14) % Eos % (Auto) 1.5 L (2-4) % Baso % (Auto) 0.9 (0-2) % Neut # (Auto) 4900 (5637-1465) /uL Lymph # (Auto) 1800 (9720-4433) /uL [place] # (Auto) 1100 H (0-900) /uL Eos # (Auto) 100 (0-450) /uL Baso # (Auto) 100 (0-100) /uL PT 12.5 (9.4-12.5) SECONDS INR 1.1 (0.9-1.3) APTT 30 (25.1-36.5) SECONDS Sodium 133 L (137-145) mmol/L Potassium 5.3 H (3.4-5.1) mmol/L Chloride 102 (98-107) mmol/L Carbon Dioxide 20 L (22-32) mmol/L BUN 22 H (9-20) mg/dL Creatinine 1.20 (0.66-1.25) mg/dL Estimated GFR 58 L (>60) mL/min BUN/Creatinine Ratio 18.3 (6-22) Glucose 93 (70-99) mg/dL POC Whole Bld Glucose 87 (70-99) mg/dL Calcium 9.0 (8.4-10.2) mg/dL Total Bilirubin 2.0 H (0.2-1.3) mg/dL AST 59 (17-59) IU/L ALT 32 (<50) IU/L Alkaline Phosphatase 69 (38-126) U/L Total Creatine Kinase 74 (55-170) U/L Troponin I 0.023 (0.01-0.034) ng/mL Total Protein 9.1 H (6.3-8.2) g/dL Albumin 4.8 (3.5-5.0) g/dL Globulin 4.3 H (1.7-4.1) g/dL Albumin/Globulin Ratio 1.1 (1.0-2.8) Urine RBC 0-1/hpf (0-5/HPF) Urine WBC 0-1/hpf (0-5/HPF) Ur Squamous Epith Cells None seen (0-5/HPF) Urine Bacteria None seen (None) Ur Culture Indicated? Cult not indicated Vol Urine Centrifuged 10ml (spun) U Opiates 300ng/mL cut Negative (Negative) Ur Oxycodone Screen Negative (Negative) Urine Methadone Screen Negative (Negative) Ur Barbiturates Screen Negative (Negative) U Tricyclic Antidepress Negative (Negative) Ur Phencyclidine Scrn Negative (Negative) Ur Amphetamines Screen Negative (Negative) U Methamphetamines Scrn Negative (Negative) Ur MDMA Scrn (Ecstasy) Negative (Negative) U Benzodiazepines Scrn Negative (Negative) Urine Cocaine Screen Negative (Negative) U Marijuana (THC) Screen Negative (Negative) Urine pH Normal (Normal) Urine Specific [place] Normal (Normal) Ur Creatinine Normal (Normal) Urine Dip Bedside Urine Glucose Negative Bedside Urine Bilirubin - Negative Bedside Urine Ketone + 15 Urine Specific [place] 1.015 Bedside Urine Occult Blood + Bedside Urine pH 6.0 Bedside Urine Protein +/- 15 Bedside Urine Urobilinogen +/- 1mg Bedside Urine Nitrite - Negative Bedside Urine Leukocytes +/- [address] scan - head: Radiologist's Impression: IMPRESSION: Subacute infarct involving the right temporal lobe. Comment: Findings were discussed with Dr. Nix on 02/19/2025 at 0945 hours CTA - brain/neck: Radiologist's Impression: IMPRESSION: Right M1 MCA interval recanalization. Short segment M2 occlusion with immediate reconstitution. Right P1 ANIMAL PHYSIOLOGY TEACHER complete occlusion, stable. Diminutive and thready distal right ANIMAL PHYSIOLOGY TEACHER Slowly growing right temporal meningioma. ECG Data Attestation: I personally reviewed and interpreted this ECG as follows: (Ventricular paced rhythm at baseline is consistent with atrial fibrillation. Rate 70.) [facility] Narrative Medical decision making narrative: Patient has physical exam findings and imaging findings consistent with evolving right temporal lobe stroke in currently stable with reassuring or acceptable blood pressure. He has received high-dose statin along with dual anti-platelet therapy. Patient discussed with his primary care team who will admit him for stroke management. He may not qualify or be a candidate for MRI given his pacemaker. Currently has stable symptoms which are not worsening. Critical Care Time Critical Care Time Total Critical Care Time: 35 Attestation: Constant monitoring and frequent reassessments the patient is status both neurological status and blood pressure. Consultation with neuro stroke team at [facility] and with hospitalist at our hospital. Additional history from family members. Discharge Plan Departure Patient Disposition: Admitted As Inpatient Clinical Impression: Acute CVA (cerebrovascular accident) Admit Date/Time: 02/19/25 12:15 Admit Provider: Marilin Zurita
[2025-02-19 09:56] LABS: Alanine Aminotransferase 32 IU/L (<50); Albumin 4.8 g/dL (3.5-5.0); Albumin Globulin Ratio 1.1 (1.0-2.8); Alkaline Phosphatase 69 U/L (38-126); Blood Urea Nitrogen 22 mg/dL (9-20); Calcium 9.0 mg/dL (8.4-10.2); Carbon Dioxide 20 mmol/L (22-32); Chloride 102 mmol/L (98-107); Creatine Kinase 74 U/L (55-170); Estimated Glomerular Filt Rate 58 mL/min (>60); Globulin 4.3 g/dL (1.7-4.1); Glucose 93 mg/dL (70-99); HEMOLYSIS 147 (0-50); Potassium 5.3 mmol/L (3.4-5.1); Sodium 133 mmol/L (137-145); Total Protein 9.1 g/dL (6.3-8.2)
[2025-02-19 10:08] LABS: Troponin I 0.023 ng/mL (0.01-0.034)
[2025-02-19] MEDS: ATORVASTATIN 20 MG TABLET 40 MG PO (11:31)
[2025-02-19] MEDS: CLOPIDOGREL 75 MG TABLET 300 MG PO (11:31)
[2025-02-19 11:54] LABS: UR Morphine/Opiate cutoff 300 Negative (Negative); Ur Specific Gravity Normal (Normal); Urine MDMA Negative (Negative); Urine Methamphetamines Negative (Negative); Urine Tetrahydrocannabinol Negative (Negative); Urine Tricyclic Antidepressant Negative (Negative)
[2025-02-19 11:57] LABS: Culture Indicated Urine Cult Not Indicated
--- NOTE | 2025-02-19 13:29 | P.HP_ITS ---
History of Present Illness History of Present Illness Date Patient Seen: 02/19/25 Time Patient Seen: 13:29 Chief complaint: slurred speech Narrative: This is a very pleasant 89-year-old male who is followed by Dr. Gomez for primary care. Patient was hospitalized over the weekend and discharged home on 02/18/2025 yesterday after having a CVA. He was started on a baby aspirin. He would recurrent symptoms today starting at about 4:00 a.m. with slurred speech and facial droop and presented to the ER for workup. Discussion with [facility] stroke physician felt that no acute intervention was indicated but he should be admitted for further monitoring PT OT and dual platelet therapy. He was given 300 mg of Plavix as well as an aspirin in the ER and was given 40 mg of atorvastatin. Patient denies any chest pain or shortness a breath. Patient has had no bleeding. He has had no headaches. He has had no rashes or fevers. Patient has a history of AFib he sees [facility] and was previously on anticoagulation but was taken off due to bleeding post treatment of prostate cancer. He has currently been off anticoagulation. They also recommended MRI but he has a pacemaker so we can not do this he had a CT angio of head and neck which does show some collateral there was not occlusion right ANIMAL PATHOLOGIST that was found over the weekend hospitalization. This looks somewhat better on imaging. He was agreeable to admission. 12 point review of systems is otherwise negative Past medical history: 1. Complete heart block/tachy-tamy syndrome: DC ppm implant 2012 and generator replacement in 2020 2. Coronary atherosclerosis noted by CT imaging in 2016 3. Permanent AFib: Converted ablation 2017 4. Atrial flutter: Ablation and mitral annular flutter ablation 08/20/2021 5. Essential hypertension 6. Carcinoma of bladder June of 2023 7. CLL 8. Osteoarthritis 9. History of hematuria 10. 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 Patient does not drink alcohol on a regular basis, he does not smoke, he quit in 1970 and had a 10 pack year history of smoking, he is fairly active Family history negative for coronary artery disease Past surgical history 1. 1956 appendectomy 2013 pacemaker placed 2018 ablation 2015 I surgery 2021 joint replacement 1990 prostate surgery 194 tonsillectomy [facility] Medical History Recurrent malignant neoplasm of bladder Atrial flutter (~10/2019) Meningioma, cerebral History of urinary tract infection Bladder cancer Lesion of bladder Pacemaker History of prostate cancer Gross hematuria Tubular adenoma Hearing loss Plantar warts (~2004) Abnormal chest xray Osteoporosis Mumps Measles Herpes (~1959) Chicken pox Vertigo (~2007) Tinnitus (~1972) History of elevated PSA (~1992) AV block (~2014) Prostate cancer (~1992) Surgical History Hx of cystoscopy (04/06/23) Hx of cystoscopy (12/07/22) H/O transurethral resection of bladder tumor (TURBT) (10/27/22) Hx of bilateral cataract extraction (2017) Hx of total knee arthroplasty (~2021) Anesthesia History of appendectomy (~1955) History of prostatectomy (~1992) Pacemaker (~2012) S/P ablation of atrial fibrillation Family History Father Cancer History of heart disease Mother Pneumonia Stroke Brother Prostate cancer Sister Autoimmune disease Sister Breast cancer Social History marital status: household members: spouse lives independently: Yes education level: other occupational status: other Smoking Status: Former smoker Tobacco: How many years used: 25 alcohol intake: current substance use type: marijuana Meds Home Medications and Allergies Home Medications ?Medication ?Instructions ?Recorded ?Confirmed ?Type losartan 25 mg tablet See Rx Instructions .Route 1 02/19/25 Rx .COMPLEX #90 tabs metoprolol tartrate 25 mg tablet 25 mg PO DAILY 02/19/25 History aspirin 81 mg tablet 81 mg PO DAILY #90 tabs 01/3102/19/25 Rx atorvastatin 20 mg tablet 20 mg PO BEDTIME #30 tabs 02/19/25 Rx oxybutynin chloride 5 mg tablet 5 mg PO TID PRN Bladde r spasms #90 02/18/25 02/19/25 Rx tabs acyclovir 400 mg tablet 400 mg PO Q8H 02/19/2502/19 History Allergies Allergy/AdvReac Type Severity Reaction Status Date / Time morphine (MORPHINE) Allergy Intermediate halluncinat Verified 08/16/23 09:08 ions Sulfa (Sulfonamide Allergy Mild fever Verified 08/16/23 09:08 Antibiotics) vibegron (From Gemtesa) AdvReac Severe Hallucinating, Verified 08/16/23 09:08 GI upset Exam Vital Signs (past 8 hours): - 02/19/25 09:46 02/19/25 09:47 02/19/25 09:50 Temperature 98.0 F Pulse Rate 73 76 Respiratory Rate 15 Blood Pressure 145/79 H 145/79 H Pulse Oximetry 97 94 Oxygen Delivery Method Room Air 02/19/25 10:00 02/19/25 10:30 02/19/25 11:00 Temperature Pulse Rate 81 74 72 Respiratory Rate 24 22 16 Blood Pressure Pulse Oximetry 95 95 94 Oxygen Delivery Method 02/19/25 11:10 02/19/25 11:10 02/19/25 11:30 Temperature Pulse Rate 77 75 Respiratory Rate 21 24 Blood Pressure 116/59 L Pulse Oximetry 96 95 Oxygen Delivery Method 02/19/25 11:31 02/19/25 11:31 02/19/25 12:00 Temperature Pulse Rate 73 Respiratory Rate 15 Blood Pressure 131/87 162/93 H Pulse Oximetry 95 Oxygen Delivery Method 02/19/25 12:00 02/19/25 12:29 02/19/25 12:30 Temperature 97.2 F L Pulse Rate 72 76 70 Respiratory Rate 24 20 21 Blood Pressure 139/96 H Pulse Oximetry 95 98 96 Oxygen Delivery Method 02/19/25 12:31 02/19/25 12:31 Temperature Pulse Rate 69 Respiratory Rate 16 Blood Pressure 134/72 Pulse Oximetry 94 Oxygen Delivery Method Oxygen Delivery Method Room Air Narrative Exam Narrative: alert and oriented x 3 HEENT wnl, no significant droop neck supple without adenopathy chest CTA bilaterally Cor: RRR without m/r/g abdomen bs present, nontender, no guarding or rebound, soft extremity: no edema, pulses intact neuro: no focal neurologic findings CN2-12 wnl, strength 5/5 in bilateral upper extremity and lower extremity, DTR intact, sensation intact no rash Objective Labs 02/19/25 09:37 02/19/25 09:37 Labs: Laboratory Results - last 24 hr 02/19/25 02/19/25 02/19/25 09:37 09:47 11:40 WBC 8.1 RBC 4.81 Hgb 16.9 Hct 48.5 MCV 100.7 H MCH 35.1 H MCHC 34.8 RDW 13.5 Plt Count 177 Neut % (Auto) 61.1 Lymph % (Auto) 22.3 L [place] % (Auto) 14.2 H Eos % (Auto) 1.5 L Baso % (Auto) 0.9 Neut # (Auto) 4900 Lymph # (Auto) 1800 [place] # (Auto) 1100 H Eos # (Auto) 100 Baso # (Auto) 100 PT 12.5 INR 1.1 APTT 30 Sodium 133 L Potassium 5.3 H Chloride 102 Carbon Dioxide 20 L BUN 22 H Creatinine 1.20 Estimated GFR 58 L BUN/Creatinine Ratio 18.3 Glucose 93 POC Whole Bld Glucose 87 Calcium 9.0 Total Bilirubin 2.0 H AST 59 ALT 32 Alkaline Phosphatase 69 Total Creatine Kinase 74 Troponin I 0.023 Total Protein 9.1 H Albumin 4.8 Globulin 4.3 H Albumin/Globulin Ratio 1.1 Urine RBC 0-1/hpf Urine WBC 0-1/hpf Ur Squamous Epith Cells None seen Urine Bacteria None seen Ur Culture Indicated? Cult not indicated Vol Urine Centrifuged 10ml (spun) U Opiates 300ng/mL cut Negative Ur Oxycodone Screen Negative Urine Methadone Screen Negative Ur Barbiturates Screen Negative U Tricyclic Antidepress Negative Ur Phencyclidine Scrn Negative Ur Amphetamines Screen Negative U Methamphetamines Scrn Negative Ur MDMA Scrn (Ecstasy) Negative U Benzodiazepines Scrn Negative Urine Cocaine Screen Negative U Marijuana (THC) Screen Negative Urine pH Normal Urine Specific [place] Normal Ur Creatinine Normal Assessment & Plan Assessment & Plan narrative: 89-year-old male with CVA perhaps progression of CVA with new symptoms this morning Assessment 1. CVA Will admit to the hospital for further monitoring. He was given 300 mg of Plavix in the ER and given a full aspirin. We will continue starting tomorrow 75 mg of Plavix and a aspirin a day. We will do 80 mg of simvastatin starting tomorrow. He was given additional 42 this morning Will do an echo Will discuss anticoagulation given his AFib Will consult PT and OT Assessment 2. History of bladder cancer Plan had discussion regarding further anticoagulation and will discuss with Cardiology as well as Urology before initiating above and beyond the dual platelet therapy Assessment 3. Hypertension stable Plan: Will monitor and continue outpatient medications 76 minutes was spent with the patient in reviewing his clinic chart and reviewing his hospital chart and meeting with patient and formulating a plan and documentation Code status is full code Time-Based Coding :: [TOTAL MINUTES] spent with patient and on the chart (including review of chart, obtaining history, exam, reviewing outside data, placing orders, documenting exam and treatment plan, and counseling patient) on [DATE].
--- NOTE | 2025-02-19 13:46 | CM.DANOTE ---
DCP Assessment Note: Pt is a 89yo male, resident [facility], is admitted for acute CVA. Pt lives in a house with his , Binta. Pt's Primary Care Provider is Dr. Beatrice Gomez MD and insurance is Medicare and [facility]. Reviewed chart and discussed with multidisciplinary team pt's medical status and initial discharge needs. Per ED Provider, pt admitted for MRI (pending clearance with pacemaker) and stroke work up with therapies. DCP met w/patient at bedside; introduced self and role. Present in the room is pt's , Binta. Patient was found in bed, alert and oriented, cooperative with assessment. Pt confirmed living situation, independence at baseline with no DME and good support in spouse. Pt expressed preference in discharge home when cleared. Pt has no prior history of working with home health or SNF Rehab. Pt agreeable to working with therapies and following their recommendations. Plan: Awaiting PT/OT evaluations and recommendation for evolving discharge plans. CM team will follow closely for coordination of discharge plans. ROCKY Narayan Discharge Planning/Care Management CM Discharge Assessment Start: 02/19/25 12:29 Freq: Status: Active Protocol: Document 02/19/25 13:44 MW (Rec: 02/19/25 13:46 MW [id number]) Discharge Planning Assessment Assigned Discharge JARETH Teague Aviation Technician Provider Tami Gomez MD Insurance Medicare Insurance Comment AARP DPOA/Assigned Binta Berger, Spouse Designee Name Contact Information [phone] Advance Directives? No Advance Directives Yes: per patient on File History Provided By Patient,Medical Record Has Patient been No admitted in last 30 days? Prior Living House Arrangements Household Members spouse Type of Drives own vehicle transporation used prior to admit Independent with ADL Yes 's Is patient alert and Yes oriented? Caregiver for No Another Discharge Plan Home Transportation Spouse Arrangement Additional Comment Referrals pending PT/OT recs Review Status In Process Please Provide Date 02/19/25 Initial DC Assessment Was Performed Next Review Type Continued Stay Review
--- NOTE | 2025-02-19 16:40 | OT.IP.EVAL ---
Current Diagnoses Cerebral infarction, unspecified (02/19/25) Past Medical History (Last Reviewed 02/17/25 @ 13:57 by Daisy Patterson MD) Abnormal chest xray Atrial flutter (~10/2019) AV block (~2014) Bladder cancer Chicken pox Gross hematuria Hearing loss Herpes (~1959) History of elevated PSA (~1992) History of prostate cancer History of urinary tract infection Lesion of bladder Measles Meningioma, cerebral Mumps Osteoporosis Pacemaker Plantar warts (~2004) Prostate cancer (~1992) Recurrent malignant neoplasm of bladder Tinnitus (~1972) Tubular adenoma Vertigo (~2007) Surgical History (Last Reviewed 02/17/25 @ 13:57 by Daisy Patterson MD) Anesthesia H/O transurethral resection of bladder tumor (TURBT) (10/27/22) History of appendectomy (~1955) History of prostatectomy (~1992) Hx of bilateral cataract extraction (2017) Hx of cystoscopy (12/07/22) Hx of cystoscopy (04/06/23) Hx of total knee arthroplasty (~2021) Pacemaker (~2012) S/P ablation of atrial fibrillation Occupational Therapy Inpatient Evaluation/Re-Eval M1 PT/OT-IP Prior Functional Status Start: 02/19/25 16:20 Freq: NEEDED Status: Active Protocol: Document 02/19/25 16:20 [facility] (Rec: 02/19/25 16:40 [facility] Desktop) Medical Review Prior Functional Status Medical History Yes Reviewed Communication Pt able to make needs known. Pt with somewhat slurred and slow speech. Mobility and Gait Pt reports amb without AD Activities of Daily Pt was I with BADL, cooking, driving, and managing Living and IADL's medications. Pts spouse performs yard work. Social History Household Members spouse Living Arrangements House Number of Floors ( Two Floors Floors) Number of Stairs To Pt has 6 steps with L railing to enter home and 10 Enter/Railing? steps with B rails to get to second floor. Home Environment High Toilet,Walk in Shower,Built-In Shower Seat Home Equipment Hand Held Shower,Grab Bars Near Toilet M2 OT-IP Current Condition Start: 02/19/25 16:20 Freq: Status: Active Protocol: Document 02/19/25 16:20 [facility] (Rec: 02/19/25 16:40 [facility]) Occupational Therapy Current Condition Current Condition Evaluation Date 02/19/25 Treatment Diagnosis CVA Diagnosis Onset Date 02/19/25 M3 OT- IP Subjective and Pain Start: 02/19/25 16:20 Freq: Status: Active Protocol: Document 02/19/25 16:20 [facility] (Rec: 02/19/25 16:40 [facility]) OT- Subjective Occupational Therapy Visit Type Type Initial Evaluation Visit Start Time 15:25 Visit Stop Time 16:20 Occupational Therapy Visit Comments Patient Comments Pt was agreeable to participating in OT eval and to get up to chair. Patient/Caregiver To go home Goals OT Pain Assessment Pain Present Pain Present Denied Pain M4 OT- IP ADL's Start: 02/19/25 16:20 Freq: Status: Active Protocol: Document 02/19/25 16:20 KELSEYMICHELLEYAIR (Rec: 02/19/25 16:40 [facility]) OT [id number] Comments OT Self-Feeding not observed Comments OT ADL-Grooming General Evaluation Grooming Ability Standby Assistance Comments OT Grooming Comments Pt washes hands sink side with S OT ADL-Oral Care Comments Oral Care Comments not observed OT ADL-Dressing General Eval Lower Body Dressing Moderate Assistance Ability Areas Needing Socks Assistance Comments OT Dressing Comments Pt dons R sock I and requires MOD A for L sock. OT ADL-Toileting General Evaluation Toileting Ability Standby Assistance Comments OT Toileting Pt able to manage brief without assistance. Pt needs Comments assist to get wet wipes out of package for performing hygiene. Pt is able to manage hygiene otherwise. OT ADL-Bathing Comments OT Bathing Comments not observed M5 OT- IP IADL's Start: 02/19/25 16:20 Freq: Status: Active Protocol: Document 02/19/25 16:20 KELSEYAZYAIR (Rec: 02/19/25 16:40 [facility]) OT-Instrumental Activities of Daily Living Deficits IADL Deficits No Deficits Identified Home Safety Awareness Awareness of Need Decreased Awareness for Assistance at Home Medication Management Medication Pts spouse reports he was having difficulty opening and Management Comments managing his pills this morning. Money Management Money Management No Deficits Identified Meal Preparation Meal Preparation No Deficits Identified Meal Preparation Spouse can assist Comments Computer Operations Technician Computer Operations Technician Caregiver Provides Assist Driving Driving Comments Spouse can assist M6 OT- IP Functional Cognition Start: 02/19/25 16:20 Freq: Status: Active Protocol: Document 02/19/25 16:20 [facility] (Rec: 02/19/25 16:40 [facility] Cognitive Factors Limiting Selfcare Function Cognitive Ability Level of Alertness Alert Patient Orientation Name,Place,Situation Attention Span Capable of Focused Attention,Capable of Sustained Ability Attention Ability to Follow Able to Follow One Step Commands,Able to Follow Multi- Commands Step Commands Memory Description No Deficits Noted Safety Awareness Underestimates Need for Assistance Problem Solving No deficits Noted Ability Executive Function No Deficits Noted Ability Abstract Thinking No Deficits Noted Ability OT- Vision and Hearing OT- Hearing Assessment OT- Hearing WFL Assessment OT- Vision Assessment Visual Acuity WFL,Glasses For Reading Occular Pursuits WFL Visual Convergence WFL Visual Zuñiga Impaired Vision Assessment Pt L peripheral vision at 45 deg and R at 75 Comments M7 OT- IP Mobility and Balance Start: 02/19/25 16:20 Freq: Status: Active Protocol: Document 02/19/25 16:20 [facility] (Rec: 02/19/25 16:40 [facility]) OT- Bed Mobility Assessment Supine to Sit Supine to Sit Assist Standby Assistance Scooting Scooting to Edge of Standby Assistance Bed OT-Transfer Assessment Sit to and From Stand Sit to and from Standby Assistance,Use of Upper Extremities Stand Transfers Transfer Ability Contact Guard Assistance,1 Person Assistance,Use of Upper Extremities Technique Transfer Destination Chair,Toilet Transfer Technique Stand Step Pivot Devices Transfer Assistive Gait Belt Devices OT- Gait Assessment Gait Gait Assistance Contact Guard Assist Required: Distance (Feet) 30 Assistive Devices Assistive Device Gait Belt Comments Gait Ability Pt amb throughout room for toileting, sink side hygiene Comments , and to transfer to recliner. Pt demonstrates good safety awareness. Pt would not use the RW and amb with AD with CGA. OT- Balance Assessment Sitting Balance and Reactions Static Sitting Good Balance Ability Dynamic Sitting Fair Balance Ability Standing Balance and Reactions Static Standing Good Balance Ability Dynamic Standing Fair Balance Ability M8 OT- IP Objective Assessments Start: 02/19/25 16:20 Freq: Status: Active Protocol: Document [facility]/19/25 16:20 [facility] OT Gross Range of Motion Upper Extremity Range of Motion Assessment Within Functional Limits OT Strength Upper Extremity Strength Shoulder R 5, L 4- Elbow R 5, L 4+ Hand B 5 Hand Cementer Strength Hand Dominance Mixed OT- Coordination Assessment Upper Extremity Finger to Nose Test Within Functional Limits Comments Coordination Pts spouse reports pt having difficulty this morning Comments managing his medications. Pt would benefit from additional FM assessments OT-Muscle Tone Assessment Muscle Tone WNL Yes OT Sensation Assessment Location Left Arm Light Touch Impaired Deep Pressure Impaired Comments Summary Comments Pt is able to correctly state where OT is touching his L UE, but reports that both light and deep touch are less sensitive than when performed on the R UE. Edema Edema Absent M9 OT- IP Assessment and Plan Start: 02/19/25 16:20 Freq: Status: Active Protocol: Document 02/19/25 16:20 [facility]ELSE[facility]YAIR (Rec: 02/19/25 16:40 [facility] Desktop) OT Summary Assessment and Plan Potential Rehabilitation Excellent Potential Analytic Complexity Moderate at Evaluation Summary OT Impairments Strength,Balance,Coordination,Sensation,Functional Mobility,Grooming,Dressing,Toileting,Bathing,Toilet Transfers,Shower Transfers,Activity Tolerance Progress Towards Progressing Toward Goals Goals Assessment Summary Pt is an 89 yo M who was hospitalized over the weekend and discharged home on 02/18/2025 after having a CVA. Pt's spouse noted recurrent symptoms today starting at about 4:00 a.m. with slurred speech and facial droop and presented to the ER for workup. Pt was admitted for further assessment and treatment. Pt presents with L UE droop, especially when his R UE is occupied in a task, decreased L UE sensation, decreased L FMC, muscle weakness, decreased BADLs, decreased activity tolerance. Skilled OT services are appropriate to address these deficits and promote return towards PLOF. When medically stable, pt would benefit from dc home with out patient OT/PT. Goals Grooming Goal Independent Dressing Goal Independent Toileting Goal Independent Bathing Goal Independent Toilet Transfer Goal Independent,Grab Bars Shower Transfer Goal Independent Days to Meet Goals 10 Frequency of Treatment Other frequency 5x/wk Treatment Plan OT Treatment Plan ADL Training,Functional Mobility,Therapeutic Exercises, Vision Retraining,Patient/Family Education,Discharge Planning Other Treatment FMC assessments such as 9 hole peg test Recommendations and Next Treatment Focus Discharge Recommendations OT Discharge Home,Outpatient PT Recommendations Other Discharge Outpatient OT Recommendations Transportation Needs Private Vehicle at Discharge
[2025-02-19] MEDS: ACYCLOVIR 400 MG TABLET PO (22:20)
[2025-02-20 03:00] VITALS: BP 148/89; PULSE 70; RESP 18; TEMP 36.9; O2SAT 95
[2025-02-20 05:28] LABS: Add Manual Diff / Slide Review NO; Hematocrit 49.5 % (41-53); Hemoglobin 17.1 g/dL (13.5-17.5); Lymphocytes Absolute Auto 1700 /uL (1100-4500); Mean Corpuscular HGB Conc 34.5 % (30-36); Mean Corpuscular Hemoglobin 34.8 PG (26-34); Mean Corpuscular Volume 100.8 fL (80-100); Platelet Count 190 X10^3/uL (150-400)
[2025-02-20] MEDS: ACYCLOVIR 400 MG TABLET PO (05:31)
[2025-02-20 05:48] LABS: Blood Urea Nitrogen 20 mg/dL (9-20); Calcium 8.9 mg/dL (8.4-10.2); Carbon Dioxide 17 mmol/L (22-32); Chloride 102 mmol/L (98-107); Estimated Glomerular Filt Rate > 60 mL/min (>60); Glucose 95 mg/dL (70-99); HEMOLYSIS 16 (0-50); Potassium 4.4 mmol/L (3.4-5.1); Sodium 132 mmol/L (137-145)
[2025-02-20 08:00] VITALS: BP 104/64; PULSE 80; RESP 18; TEMP 36; O2SAT 96
--- NOTE | 2025-02-20 10:25 | OT.IP.TRT ---
Current Diagnoses Cerebral infarction, unspecified (02/19/25) Occupational Therapy Treatment Note M2 OT-IP Current Condition Start: 02/19/25 16:20 Freq: Status: Active Protocol: Document 02/19/25 16:20 [facility] (Rec: 02/19/25 16:40 [facility] Desktop) Occupational Therapy Current Condition Current Condition Evaluation Date 02/19/25 Treatment Diagnosis CVA Diagnosis Onset Date 02/19/25 M3 OT- IP Subjective and Pain Start: 02/19/25 16:20 Freq: Status: Active Protocol: Document 02/20/25 12:37 [facility] (Rec: 02/20/25 12:51 [facility] Desktop) OT- Subjective Occupational Therapy Visit Type Type Treatment Note Visit Start Time 10: Visit Stop Time 11:25 Occupational Therapy Visit Comments Patient Comments Pt agreed to do FMS and cognitive assessment. Patient/Caregiver TO go home. Goals OT Pain Assessment Pain When Pain Assessed At Rest Pain Present Pain Present Denied Pain M4 OT- IP ADL's Start: 02/19/25 16:20 Freq: Status: Active Protocol: Document 02/20/25 12:37 [facility] (Rec: 02/20/25 12:51 [facility] Desktop) OT [id number] Comments OT Self-Feeding Not at meal time. Encouraged pt to use his LUE. Comments OT ADL-Grooming Comments OT Grooming Comments Pt able to wash his hand while at the sink. OT ADL-Oral Care Comments Oral Care Comments NOt performed. OT ADL-Dressing General Eval Lower Body Dressing Minimal Assistance Ability Comments OT Dressing Comments Assist to help michele brief over his LLE. Pt uses his right hand the majority of the time and needing cues to incorporate his left hand. OT ADL-Toileting General Evaluation Toileting Ability Minimal Assistance Areas Needing Manage Clothing Assistance OT ADL-Bathing Comments OT Bathing Comments NOt performed. Pt will benefit from assist at home . M5 OT- IP IADL's Start: 02/19/25 16:20 Freq: Status: Active Protocol: Document 02/19/25 16:20 [facility] (Rec: 02/19/25 16:40 [facility] Desktop) OT-Instrumental Activities of Daily Living Deficits IADL Deficits No Deficits Identified Home Safety Awareness Awareness of Need Decreased Awareness for Assistance at Home Medication Management Medication Pts spouse reports he was having difficulty opening and Management Comments managing his pills this morning. Money Management Money Management No Deficits Identified Meal Preparation Meal Preparation No Deficits Identified Meal Preparation Spouse can assist Comments Reference And Instruction Librarian Reference And Instruction Librarian Caregiver Provides Assist Driving Driving Comments Spouse can assist M6 OT- IP Functional Cognition Start: 02/19/25 16:20 Freq: Status: Active Protocol: Document 02/20/25 12:37 [facility] (Rec: 02/20/25 12:51 [facility] Desktop) Cognitive Factors Limiting Selfcare Function Cognitive Ability Level of Alertness Alert Patient Orientation Name,Place,Situation Attention Span Capable of Focused Attention,Capable of Sustained Ability Attention Ability to Follow Able to Follow One Step Commands with Increased Time, Commands Able to Follow One Step Commands with Repetition Memory Description Short Term Impaired,Working Impaired Safety Awareness Underestimates Need for Assistance Cognitive Tests SLUMS EXPLORATION ENGINEER states to do SLUMS. Cognitive Comments Cognitive Assessment Pt scored 372 seconds on [place] Making Part B with MAX Comments vc implies severe deficits with visual attention, speed of processing, executive functioning, mental flexibility, and task switching. Pt and well aware of suggestion not to drive at this time. Pt decreased vision to the left also affecting his ability to do the assessment. OT- Vision and Hearing OT- Vision Assessment Vision Assessment Decreased vision to the left. right eye peripheral Comments vision seems a little improved today. M7 OT- IP Mobility and Balance Start: 02/19/25 16:20 Freq: Status: Active Protocol: Document 02/20/25 12:37 [facility] (Rec: 02/20/25 12:51 [facility] Desktop) OT- Bed Mobility Assessment Supine to Sit Supine to Sit Assist Standby Assistance OT-Transfer Assessment Sit to and From Stand Sit to and from Standby Assistance,Use of Upper Extremities Stand Transfers Transfer Ability Standby Assistance Technique Transfer Destination Bed,Toilet Devices Transfer Assistive Gait Belt Devices Comments Mobility Comments SBA with ambulation in the room. OT- Balance Assessment Sitting Balance and Reactions Static Sitting Good Balance Ability Dynamic Sitting Good Balance Ability Standing Balance and Reactions Static Standing Good Balance Ability Dynamic Standing Fair Balance Ability M8 OT- IP Objective Assessments Start: 02/19/25 16:20 Freq: Status: Active Protocol: Document 02/19/25 16:20 KELSEYNCYAIR (Rec: 02/19/25 16:40 [facility] Desktop) OT Gross Range of Motion Upper Extremity Range of Motion Assessment Within Functional Limits OT Strength Upper Extremity Strength Shoulder R 5, L 4- Elbow R 5, L 4+ Hand B 5 Hand Attending Anesthesiologist Strength Hand Dominance Mixed OT- Coordination Assessment Upper Extremity Finger to Nose Test Within Functional Limits Comments Coordination Pts spouse reports pt having difficulty this morning Comments managing his medications. Pt would benefit from additional FM assessments OT-Muscle Tone Assessment Muscle Tone WNL Yes OT Sensation Assessment Location Left Arm Light Touch Impaired Deep Pressure Impaired Comments Summary Comments Pt is able to correctly state where OT is touching his L UE, but reports that both light and deep touch are less sensitive than when performed on the R UE. Edema Edema Absent M9 OT- IP Assessment and Plan Start: 02/19/25 16:20 Freq: Status: Active Protocol: Document 02/20/25 12:37 [facility] (Rec: 02/20/25 12:51 [facility] Desktop) OT Summary Assessment and Plan Potential Rehabilitation Excellent Potential Analytic Complexity Moderate at Evaluation Summary OT Impairments Strength,Balance,Coordination,Sensation,Functional Cognition,Functional Mobility,Grooming,Dressing, Toileting,Bathing,Toilet Transfers,Shower Transfers, Activity Tolerance Progress Towards Progressing Toward Goals,Slow Progress due to Cognition Goals Assessment Summary Pt today still left visual deficit and decreased FMS Left hand 77 sec and right hand 36 sec for 9 hole peg test. Pt neglectful of left UE and vc to look to his left and also to actively incorporate his LUE for all needs. Pt scored 372 sec on [place] Making Part B which implies severe deficits with visual attention, speed of processing, mental flexibility, executive functioning, and task switching. Pt to go home with 24/7 assist and benefit from outpt PT/OT. Goals Grooming Goal Independent Dressing Goal Independent Toileting Goal Independent Bathing Goal Independent Toilet Transfer Goal Independent,Grab Bars Shower Transfer Goal Independent OT-Other Goals Pt to incorporate his LUE for all ADL and mobility 100% of the time. Days to Meet Goals 9 Frequency of Treatment Other frequency 5x/wk Treatment Plan OT Treatment Plan ADL Training,Functional Mobility,Therapeutic Exercises, Vision Retraining,Patient/Family Education,Discharge Planning Discharge Recommendations OT Discharge Home,Outpatient PT Recommendations Other Discharge Outpatient OT Recommendations Transportation Needs Private Vehicle at Discharge
[2025-02-20] MEDS: METOPROLOL IR 25 MG TABLET PO (10:43)
[2025-02-20] MEDS: CLOPIDOGREL 75 MG TABLET PO (10:44)
[2025-02-20] MEDS: ASPIRIN EC 81 MG TABLET PO (10:44)
[2025-02-20] MEDS: LOPERAMIDE 2 MG CAPSULE PO (10:45)
[2025-02-20 10:46] VITALS: BP 112/80; PULSE 80
[2025-02-20] MEDS: LOSARTAN 25 MG TABLET PO (10:46)
[2025-02-20] MEDS: SODIUM CHLORIDE 0.9% FLUSH 10 ML IV ×2 (10:47→20:35)
--- NOTE | 2025-02-20 11:48 | CM.DPNOTE ---
DCP note [facility] reviewed EMR. per provider, no plans to dc today. pt to stay at least one more night. per OT, rec home with assistance. PT pending. per nursing staff, no MRI due to pacemaker. echo however pending. P: anticipate eventual dc home with spouse when medically stable. no identified barriers to safe dc home identified at this time. [facility] will continue to follow closely for any additional DCP concerns to arise JARETH Abreu
--- NOTE | 2025-02-20 12:00 | PT.IIE ---
Current Diagnoses Cerebral infarction, unspecified (02/19/25) Surgical History (Last Reviewed 02/17/25 @ 13:57 by Daisy Patterson MD) Anesthesia H/O transurethral resection of bladder tumor (TURBT) (10/27/22) History of appendectomy (~1955) History of prostatectomy (~1992) Hx of bilateral cataract extraction (2017) Hx of cystoscopy (12/07/22) Hx of cystoscopy (04/06/23) Hx of total knee arthroplasty (~2021) Pacemaker (~2012) S/P ablation of atrial fibrillation Medical History (Last Reviewed 02/17/25 @ 13:57 by Daisy Patterson MD) Abnormal chest xray Atrial flutter (~10/2019) AV block (~2014) Bladder cancer Chicken pox Gross hematuria Hearing loss Herpes (~1959) History of elevated PSA (~1992) History of prostate cancer History of urinary tract infection Lesion of bladder Measles Meningioma, cerebral Mumps Osteoporosis Pacemaker Plantar warts (~2004) Prostate cancer (~1992) Recurrent malignant neoplasm of bladder Tinnitus (~1972) Tubular adenoma Vertigo (~2007) Physical Therapy Inpatient Evaluation/Re-Eval M1 PT/OT-IP Prior Functional Status Start: 02/20/25 12:53 Freq: NEEDED Status: Active Protocol: Document 02/20/25 12:00 AB (Rec: 02/20/25 13:05 AB [id number]) Medical Review Prior Functional Status Medical History Yes Reviewed Communication able to make needs known; needs increase time to respon Mobility and Gait pt stated that he was independent with all mobilities and ambulation without AD Activities of Daily per OT note: Pt was I with BADL, cooking, driving, and Living and IADL's managing medications. Pts spouse performs yard work. Social History Household Members spouse Living Arrangements House Number of Floors ( Two Floors Floors) Number of Stairs To Pt has 6 steps with L railing to enter home + 14 steps Enter/Railing? with B rails to get to main level . Home Environment High Toilet,Walk in Shower,Built-In Shower Seat Home Equipment Hand Held Shower,Grab Bars Near Toilet Additional Social pt has a hurrycane History Comment M2 PT-IP Current Condition Start: 02/20/25 12:53 Freq: NEEDED Status: Active Protocol: Document 02/20/25 12:00 AB (Rec: 02/20/25 13:05 [id number]) Physical Therapy Current Condition Current Condition Evaluation Date 02/20/25 Treatment Diagnosis R CVA; difficulty in walking Onset Date 02/19/25 M3 PT-IP Subjective Start: 02/20/25 12:53 Freq: NEEDED Status: Active Protocol: Document 02/20/25 12:00 AB (Rec: 02/20/25 13:05 [id number]) Subjective Physical Therapy Visit Type Type Initial Evaluation Visit Start Time 12:00 Visit Stop Time 12:30 Number of PRODUCTION CONTROL TECHNOLOGIST Visits 0 Physical Therapy Visit Comments Patient Comments agreeable to do PT M4 PT-IP Mobility and Gait Start: 02/20/25 12:53 Freq: NEEDED Status: Active Protocol: Document 02/20/25 12:00 AB (Rec: 02/20/25 13:05 [id number]) PT-Bed Mobility Assessment Supine to Sit Supine to Sit Independent PT-Transfer Assessment Sit to and From Stand Sit to and from Standby Assistance Stand Equipment Transfer Assistive None,Gait Belt Device Orthotic/Prosthetic No Devices or Brace: Transfers Transfer Destination Chair Transfer Technique ambulated Transfer Ability Level of Assist Standby Assistance,Use of Upper Extremities Comments Mobility Comments pt in bed and spouse in room. obtained PLOF and home set up. pt was just evaluated by this PT last Wednesday and spouse stated that they went home the same day. pt completed supine to sit mod I. able to sit on EOB SBA. sit to stand from EOB SBA and ambulated in room ~ 40 ft SBA. presents with unsteady gait but without LOB . pt seems to have less L sided inattention and not needing as much cues as last Wednesday. pt sat on chair and rested. pt agreed to do steps. completed up/down step stool holding on to foot board as rail SBA. completed x 3 sets. pt sat back on chair. positioned pt on the chair . call light and table placed within reach. Gait Assessment Gait Gait Assistance Standby Assistance Required: Distance (Feet) 40 Able to Maintain Yes Weight Bearing Status During Gait Assistive Devices Assistive Device None,Gait Belt Orthotic/Prosthetic No Devices or Brace: Gait Deviations General Gait Pattern Ataxic,Decreased Stride Length,Decreased Feet Clearance Factors Limiting Gait Function Factors Limiting Decreased Activity Tolerance,Decreased Strength,Poor Gait Function Balance,Poor Safety Awareness Stair Climbing Assessment Evaluation Level of Assist On Standby Assistance Stairs Devices Stair Climbing Left Railing Assistive Devices Technique/Endurance Stair Climbing Step to Step Technique Number of Steps 1 Climbed Query Text: Stair Climbing Set # 3 Repetitions (reps) PT-Balance Assessment Sitting Balance and Reactions Static Sitting Normal Balance Ability Dynamic Sitting Good Balance Ability Standing Balance and Reactions Static Standing Good Balance Ability Dynamic Standing Good Balance Ability Device Used without AD M5 PT-IP Objective Assessments Start: 02/20/25 12:53 Freq: NEEDED Status: Active Protocol: Document 02/20/25 12:00 AB (Rec: 02/20/25 13:05 AB [id number]) Orientation Orientation/Cognition Level of Alertness Alert Orientation Name,Place,Situation Safety Awareness Decreased Safety Awareness Memory Description Short Term Impaired Comments needs increase time to answer questions Gross Range of Motion Lower Extremity ROM Assessment Within Functional Limits Strength Lower Extremity Strength Assessment Within Functional Limits Sensation Assessment Sensation Gross Sensation WNL Muscle Tone Muscle Tone WNL Yes M6 PT-IP Treatment Start: 02/20/25 12:53 Freq: NEEDED Status: Active Protocol: Document 02/20/25 12:00 AB (Rec: 02/20/25 13:05 [id number]) Physical Therapy Treatment Education Education Provided Safety M7 PT-IP Assessment and Plan Start: 02/20/25 12:53 Freq: NEEDED Status: Active Protocol: Document 02/20/25 12:00 AB (Rec: 02/20/25 13:05 [id number]) PT Summary Assessment and Plan Potential Rehabilitation Fair Potential Status of Condition Stable at Evaluation Summary Impairments Pain,ROM,Strength,Balance,Coordination,Sensation,Tone, Cognition,Bed Mobility,Transfers,Gait,Activity Tolerance Assessment Summary pt is an 89 y/o M who is admitted for R CVA. pt requiring SBA with ambulation without AD. pt with unsteady gait and with slight L sided inattention but better compared to last Wednesday. pt lives with spouse and spouse will be able to assist pt. pt will benefit from outpt PT. Goals Bed Mobility Goal Independent Transfer Goal Independent Gait Goal Independent Gait Distance 300 Other Goals up/down 6 steps L rail ascending + up/down 14 steps B rails mod I Days to Meet Goals 5 Frequency of Treatment Frequency Of Once a Day Treatment Treatment Plan Physical Therapy Bed Mobility Training,Transfer Training,Gait Training, Treatment Plan Therapeutic Exercise,Balance Retraining,Discharge Planning,Hot or Cold Pack,Neuromuscular Re-ed, Coordination Retraining,Manual Therapy Recommendations To Nursing Amount of Assist 1 Person Assist Needed Discharge Recommendations PT Discharge Home with Assistance,Outpatient PT Recommendations Transportation Needs Private Vehicle at Discharge - PT assist 1
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
[2025-02-20 16:00] VITALS: BP 146/97; PULSE 70; RESP 18; TEMP 36.3; O2SAT 97
--- NOTE | 2025-02-20 16:37 | PM.PN.1 ---
Subjective Subjective Date Patient Seen: 02/20/25 Time Patient Seen: 16:37 Interval history: Patient is anxious to go home. Patient had uneventful night other than blood pressure was quite high and then low this morning at 104/70. Patient also having significant diarrhea today he was given it a Imodium and has not had a bowel movement since then. We had been attempting to get a GI array to evaluate for C diff and infectious etiology. Patient is tolerating p.o. without difficulty. He does have lactose intolerance so perhaps he was exposed. He denies any abdominal pain he denies any shortness a breath or chest pain. His states that he is still very slow to speak. He worked with Physical therapy and Occupational therapy and they felt that he still has some inattention to his left upper extremity but this is improved from Wednesday. Speech therapy evaluated him and there was concern for possible aspiration he had a modified barium swallow and this was negative and so full diet just no distraction while he is eating was recommended Twelve point review of systems is otherwise negative Exam Vital Signs (past 8 hours): - 02/20/25 10:46 02/20/25 16:00 Temperature 97.4 F L Pulse Rate 80 70 Respiratory Rate 18 Blood Pressure 112/80 146/97 H Pulse Oximetry 97 Oxygen Delivery Method Room Air Oxygen Flow Rate 0 Narrative Exam Narrative: Patient is afebrile vital signs are stable HEENT: Still partial left facial droop Mucous membranes moist and pink Neck: Supple without adenopathy or thyromegaly Chest: Clear to auscultation without wheezes rhonchi or crackles Cor: Regular rate and rhythm without a murmur Abdomen: Positive bowel sounds, soft, nontender, nondistended Extremities no edema pulses intact Neurologic exam is remarkable for dysmetria [id number] in the left with left upper extremity jhoan neglect and inattention. Patient is slow with his speech No rashes Strength is intact and symmetric bilateral upper and lower extremities Objective Labs 02/20/25 05:09 02/20/25 05:09 Labs: Laboratory Results - last 24 hr 02/20/25 05:09 WBC 8.3 RBC 4.91 Hgb 17.1 Hct 49.5 MCV 100.8 H MCH 34.8 H MCHC 34.5 RDW 13.2 Plt Count 190 Neut % (Auto) 65.3 Lymph % (Auto) 20.0 L [place] % (Auto) 13.4 Eos % (Auto) 0.7 L Baso % (Auto) 0.6 Neut # (Auto) 5400 Lymph # (Auto) 1700 [place] # (Auto) 1100 H Eos # (Auto) 100 Baso # (Auto) 0 Sodium 132 L Potassium 4.4 Chloride 102 Carbon Dioxide 17 L BUN 20 Creatinine 1.06 Estimated GFR > 60 BUN/Creatinine Ratio 18.9 Glucose 95 Calcium 8.9 PFSH Medical History Recurrent malignant neoplasm of bladder Atrial flutter (~10/2019) Meningioma, cerebral History of urinary tract infection Bladder cancer Lesion of bladder Pacemaker History of prostate cancer Gross hematuria Tubular adenoma Hearing loss Plantar warts (~2004) Abnormal chest xray Osteoporosis Mumps Measles Herpes (~1959) Chicken pox Vertigo (~2007) Tinnitus (~1972) History of elevated PSA (~1992) AV block (~2014) Prostate cancer (~1992) Surgical History Hx of cystoscopy (04/06/23) Hx of cystoscopy (12/07/22) H/O transurethral resection of bladder tumor (TURBT) (10/27/22) Hx of bilateral cataract extraction (2017) Hx of total knee arthroplasty (~2021) Anesthesia History of appendectomy (~1955) History of prostatectomy (~1992) Pacemaker (~2012) S/P ablation of atrial fibrillation Family History Father Cancer History of heart disease Mother Pneumonia Stroke Brother Prostate cancer Sister Autoimmune disease Sister Breast cancer Social History marital status: household members: spouse lives independently: Yes education level: other occupational status: other Smoking Status: Former smoker Tobacco: How many years used: 25 alcohol intake: current substance use type: marijuana Assessment & Plan Assessment & Plan narrative: 89-year-old male with CVA perhaps progression of CVA with new symptoms this morning Assessment 1. CVA Patient continues on telemetry with underlying probable atrial fibrillation with paced rhythm. Patient evaluated by PT and OT who feel that he is improved slightly with his jhoan neglect of the left upper extremity from his previous hospitalization on Wednesday. He will continue to work with PT and OT Appreciate speech therapy evaluation and subsequent modified swallow eval which was negative. He will continue with a regular diet. I think because of his neglect his cognitive effect from the stroke in his advanced age that he would benefit from inpatient stroke rehab for aggressive treatment. We will look into this and see if this is possible if he is a candidate. We will continue with the atorvastatin 80 mg daily Continue with Plavix 75 mg daily and aspirin. Reviewed anticoagulation for his AFib. He has a cardiac indication and no cardiac contraindication and they felt we needed to discuss with primary care and Neurology whether we could do anticoagulation for his AFib. Reviewed echo which has not changed from his previous in 2021 he has moderate concentric LVH with normal ejection fraction 55-60 this seems slightly improved from 2020 due Assessment 2. History of bladder cancer Plan had discussion regarding further anticoagulation and will discuss with Cardiology as well as Urology before initiating above and beyond the dual platelet therapy Assessment 3. Hypertension stable Plan: Will monitor and continue outpatient medications. Blood pressures are fluctuating. Assessment 4. Chronic atrial fibrillation At this point family is hesitant to put him on Xarelto because of his previous experience. Discussed with Cardiology and they said he has a cardiac indication and no cardiac contraindication but in terms of whether it is safe for him to have this they can not determine. We will discuss with his urologist and family will think about it and we will consider. We reviewed bleeding risk. Assessment 5. Diarrhea Plan: Imodium PRN and will do GI array to rule out infectious etiology C diff etc.. No history of oral antibiotics or antibiotics and general. 55 minutes was spent with the patient in reviewing his clinic chart and reviewing his hospital chart and meeting with patient and formulating a plan and documentation Code status is full code Time-Based Coding Time-Based Coding :: [TOTAL MINUTES] spent with patient and on the chart (including review of chart, obtaining history, exam, reviewing outside data, placing orders, documenting exam and treatment plan, and counseling patient) on [DATE]. Quality VTE Deep Vein Thrombosis/Pulmonary Embolism Present on Admission: No
--- NOTE | 2025-02-20 17:01 | ST.SWALLOW ---
Visit Care Team Role Provider Type Tami Gomez MD Primary Care Provider Non-Staff Specialty: Family Practice Address: [facility], [place], [address] Email: Carter Nix MD Emergency Provider Physician Referring Provider Specialty: Emergency Medicine Address: [address] [place] [address], [id number] Fax: Email: [email or web address] Marilin Zurita MD Admit Provider Physician Attending Provider Specialty: Family Practice Address: 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 Gomez for primary care. Patient was hospitalized over the weekend and discharged home on yesterday after having a CVA. He was started on a baby aspirin. He would recurrent symptoms today starting at about 4:00 a.m. with slurred speech and facial droop and presented to the ER for workup. Discussion with [facility] tele stroke physician felt that no acute intervention was indicated but he should be admitted for further monitoring PT OT and dual platelet therapy. He was given 300 mg of Plavix as well as an aspirin in the ER and was given 40 mg of atorvastatin. Pt returned to the ED on 02/20/25 with worsening symptoms starting at 4:00 a.m. this morning according to his . This includes slurred speech, left facial droop and worsening left-sided weakness. RN reported inconsistent coughing during med pass. A clinical swallow evaluation at bedside was indicated ild oral phase dysphagia difficulty with bolus manipulation and clearance secondary to left-sided labial/lingual/buccal weakness and concern for possible pharyngeal phase dysphagia given presence of signs/symptoms of aspiration (coughing with sequential sips of thin liquid) in the setting of CVA. Modified Barium Swallow Study (MBSS) was recommended to assess pt?s swallow pathophysiology in order to determine the safest diet, effective compensatory strategies, and potential rehabilitative exercises for therapy. Subjective Pt was seated in the flouroscopy chair with directions Observations and procedures explained for him. He indicated he understood and agreed to proceed. Patient Positioning Position View Lat-A/P Imaging Lateral View Textures Administered Trials Presented Thin Liquid via Spoon (IDDSI 0),Thin Liquid via Cup ( IDDSI 0),Moderately Thick Liquid via Cup (IDDSI 3), Regular (IDDSI 7) Barium Tablet Yes The IDDSI Framework Protocol: IDDSI.1 Oral Impairment Source: The Modified Barium Swallow Impairment Profile (MBSImP??) Lip Closure No labial escape Tongue Control Cohesive bolus between tongue to palatal seal During Bolus Hold Bolus Preparation/ Timely & efficient chewing & mashing Mastication Bolus Transport/ Brisk tongue motion Lingual Motion Oral Residue Residue collection on oral structures Location Tongue Initiation of Bolus head at posterior angle of ramus (first hyoid Pharyngeal Swallow excursion) Additional Oral *Dentition natural and in good hygiene Impairment *Mastication observed with rotary chew pattern. Observations *Good bolus formation, control and AP transition. *Velopharyngeal closure was WNL. *Oral motor skills demonstrated improved facial, labial strength, ROM and speed. Mild reduction in lingual coordination and speed were observed. *DKS was WFL. Mild dysarthria was noted as pt fatigued. Oral phase of swallow WFL Pharyngeal Impairment Source: The Modified Barium Swallow Impairment Profile (MBSImP??) Soft Palate No bolus between soft palate & pharyngeal wall Elevation Laryngeal Elevation Part.sup.move.thyroid cart/part.approx.arytenoids to epiglot.petiole Anterior Hyoid Partial anterior movement Excursion Epiglottic Movement Complete inversion Laryngeal Vestibular Incomplete; narrow column air/contrast in laryngeal Closure vestibule Pharyngeal Stripping Present - complete Wave Pharyngoesophageal Complete distention & complete duration; no obstruction Segment Opening of flow Tongue Base Narrow column of contrast/air betwn tongue base & post. Retraction pharyngeal wall Pharyngeal Residue Collection of residue within/on pharyngeal structures Location Diffuse (>3 areas) Additional *Adequate hyolaryngeal elevation and movement Pharyngeal *Complete epiglottal inversion Impairment *UES duration and extension adequate Observations *CP bar visualized *Flash penetration observed x4 - No laryngeal residue noted. This is considered to be WNL for pt's age * Diffuse pharyngeal residual noted Pharyngeal phase of swallow WFL A/P View Textures Administered Trials Presented Thin Liquid via Spoon (IDDSI 0) The IDDSI Framework Protocol: IDDSI.1 A/P View Observations Pharyngeal Complete Contraction Esophageal Clearance Esophageal retention Upright Position Vocal Fold Function Good Esophageal Function WFL Additional A-P Thin barium and calibrated barium tablet trials for AP Observations Esophagus was observed to clear WFL Clinical Impressions Findings Pt presented with oral, pharyngeal and esophageal swallow phases WFL. With fatigue, pt's speech becomes mildly dysarthric. This is expected to improve. The MBSS results and recommendations were discussed with the pt and his who indicated that understood. All questions were answered. Rehabilitation Excellent Potential Patient Appropriate Yes: If dysarthric speech pattern persists for Therapy Recommendations Diet Liquids Order Thin (IDDSI 0) Diet Order Regular (IDDSI 7) Medication As Tolerated Recommendation Treatment Plan Therapy Outpatient Speech Therapy Recommendations Recommended Primary Care Physician Referrals Placement Home,Inpatient Rehab Facility Recommendation After Discharge
[2025-02-20] MEDS: ASPIRIN EC 81 MG TABLET 243 MG PO (17:37)
[2025-02-20 20:00] VITALS: BP 102/74; PULSE 71; RESP 18; TEMP 36.1; O2SAT 96
[2025-02-20] MEDS: ATORVASTATIN 20 MG TABLET 80 MG PO (20:34)
[2025-02-21] VITALS: BP 147/104; PULSE 80; O2SAT 96
[2025-02-21 04:00] VITALS: BP 150/95; PULSE 76; O2SAT 97
[2025-02-21 05:37] LABS: Add Manual Diff / Slide Review NO; Hematocrit 47.7 % (41-53); Hemoglobin 16.6 g/dL (13.5-17.5); Lymphocytes Absolute Auto 1500 /uL (1100-4500); Mean Corpuscular HGB Conc 34.9 % (30-36); Mean Corpuscular Hemoglobin 35.0 PG (26-34); Mean Corpuscular Volume 100.3 fL (80-100); Platelet Count 188 X10^3/uL (150-400)
[2025-02-21 05:50] LABS: Blood Urea Nitrogen 17 mg/dL (9-20); Calcium 8.8 mg/dL (8.4-10.2); Carbon Dioxide 17 mmol/L (22-32); Chloride 103 mmol/L (98-107); Estimated Glomerular Filt Rate > 60 mL/min (>60); Glucose 96 mg/dL (70-99); HEMOLYSIS 21 (0-50); Potassium 4.1 mmol/L (3.4-5.1); Sodium 131 mmol/L (137-145)
[2025-02-21 07:50] VITALS: BP 137/97; PULSE 75; RESP 16; TEMP 35.8; O2SAT 97
[2025-02-21] MEDS: ASPIRIN EC 325 MG TABLET PO (08:53)
[2025-02-21] MEDS: CLOPIDOGREL 75 MG TABLET PO (08:53)
[2025-02-21] MEDS: SODIUM CHLORIDE 0.9% FLUSH 10 ML IV (08:54)
--- NOTE | 2025-02-21 10:06 | PM.DS.1 ---
History of Present Illness History of Present Illness Date Patient Seen: 02/21/25 Time Patient Seen: 10:06 Chief complaint: slurred speech Narrative: This is a very pleasant 89-year-old male who is followed by Dr. Gomez for primary care. Patient was hospitalized over the weekend and discharged home on 02/18/2025 yesterday after having a CVA. He was started on a baby aspirin. He would recurrent symptoms today starting at about 4:00 a.m. with slurred speech and facial droop and presented to the ER for workup. Discussion with [facility] stroke physician felt that no acute intervention was indicated but he should be admitted for further monitoring PT OT and dual platelet therapy. He was given 300 mg of Plavix as well as an aspirin in the ER and was given 40 mg of atorvastatin. Patient denies any chest pain or shortness a breath. Patient has had no bleeding. He has had no headaches. He has had no rashes or fevers. Patient has a history of AFib he sees [facility] Cardiology and was previously on anticoagulation but was taken off due to bleeding post treatment of prostate cancer. He has currently been off anticoagulation. 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 This looks somewhat better on imaging. He was agreeable to admission. 12 point review of systems is otherwise negative Past medical history: 1. Complete heart block/tachy-tamy syndrome: DC ppm implant 2012 and generator replacement in 2020 2. Coronary atherosclerosis noted by CT imaging in 2016 3. Permanent AFib: Converted ablation 2017 4. Atrial flutter: Ablation and mitral annular flutter ablation 08/20/2021 5. Essential hypertension 6. Carcinoma of bladder June of 2023 7. CLL 8. Osteoarthritis 9. History of hematuria 10. 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 Patient does not drink alcohol on a regular basis, he does not smoke, he quit in 1970 and had a 10 pack year history of smoking, he is fairly active Family history negative for coronary artery disease Past surgical history 1. 1956 appendectomy 2013 pacemaker placed 2018 ablation 2016 I surgery 2021 joint replacement 1991 prostate surgery 194 tonsillectomy Discharge Providers Provider Date of admission: 02/19/25 12:15 Discharge Date: 02/21/25 Primary care physician: Tami Gomez MD Consults: 02/19/25 13:52 Consult to Occupational Therapy Evaluate & Treat Comment: Physician Instructions: Evaluate and treat Consult to Physical Therapy Evaluate & Treat Comment: Physician Instructions: Evaluate and Treat 02/19/25 14:03 Consult to Speech Therapy Evaluate & Treat Comment: Physician Instructions: Evaluate and treat Discharge provider: Marilin Zurita MD Summary Hospital Course Discharge Diagnosis: 1. Right anterior temporal infarct 2. Right parietal infarct 3. Hypertension with labile blood pressures 4. AFib 5. History of bladder cancer 6. History of prostate cancer Hospital Course: Patient was admitted to the hospital after being discharged 24 hours prior. Patient had worsening symptoms cognitive and rescanned showed recanalization of the middle cerebral artery that previously it had thrombus. In retrospect visible on the 02/19 CTA shows low attenuation in the area of distribution of the right MCA consistent with anterior temporal infarct and inferior right parietal infarct compared to the left. Patient's symptoms and clinical exam fit with this and that patient has left upper extremity jhoan neglect with visual-spatial abnormalities and cognitive difficulties. Patient was started on Plavix and baby aspirin increase to a full aspirin. Extensive discussion regarding anticoagulation for atrial fibrillation ensued but at this point given the Plavix the full aspirin we will hold off on this. His furniture shampooer was consulted and they were not able to give guidance. This was Dr. Dhaliwal office, Dr. Yi was consulted. Patient showed some improvement but clearly would best benefit from inpatient acute stroke rehab. He was agreeable. He was discharged there on hospital day 3. Exam Vital Signs (past 8 hours): - 02/21/25 04:00 02/21/25 07:50 Temperature 96.4 F L Pulse Rate 76 75 Respiratory Rate 16 Blood Pressure 150/95 H 137/97 H Pulse Oximetry 97 97 Oxygen Flow Rate 0 Oxygen Delivery Method Room Air Oxygen Flow Rate 0 Narrative Exam Narrative: Patient alert and oriented to person and place. Patient cognition slightly improved with ability to follow conversation and asked more appropriate questions and speech was less slower. HEENT unremarkable Neck: Supple without adenopathy Chest: Clear to auscultation without wheezes rhonchi or crackles Cor: Regular rate and rhythm with distant S1-S2 Abdomen: Positive bowel sounds, soft, nontender Extremities: No edema pulses intact Neurologic exam shows unchanged left upper extremity neglect with visual-spatial abnormalities and dysmetria with [id number] otherwise no focal abnormalities other than cognition Objective Labs 02/21/25 04:42 02/21/25 04:42 Labs: Laboratory Results - last 24 hr 02/21/25 04:42 WBC 7.9 RBC 4.75 Hgb 16.6 Hct 47.7 MCV 100.3 H MCH 35.0 H MCHC 34.9 RDW 13.1 Plt Count 188 Neut % (Auto) 65.3 Lymph % (Auto) 18.9 L [place] % (Auto) 14.3 H Eos % (Auto) 1.0 L Baso % (Auto) 0.5 Neut # (Auto) 5200 Lymph # (Auto) 1500 [place] # (Auto) 1100 H Eos # (Auto) 100 Baso # (Auto) 0 Sodium 131 L Potassium 4.1 Chloride 103 Carbon Dioxide 17 L BUN 17 Creatinine 1.00 Estimated GFR > 60 BUN/Creatinine Ratio 17.0 Glucose 96 Calcium 8.8 PFSH Medical History Recurrent malignant neoplasm of bladder Atrial flutter (~10/2019) Meningioma, cerebral History of urinary tract infection Bladder cancer Lesion of bladder Pacemaker History of prostate cancer Gross hematuria Tubular adenoma Hearing loss Plantar warts (~2004) Abnormal chest xray Osteoporosis Mumps Measles Herpes (~1959) Chicken pox Vertigo (~2007) Tinnitus (~1972) History of elevated PSA (~1992) AV block (~2014) Prostate cancer (~1992) Surgical History Hx of cystoscopy (04/06/23) Hx of cystoscopy (12/07/22) H/O transurethral resection of bladder tumor (TURBT) (10/27/22) Hx of bilateral cataract extraction (2017) Hx of total knee arthroplasty (~2021) Anesthesia History of appendectomy (~1955) History of prostatectomy (~1992) Pacemaker (~2012) S/P ablation of atrial fibrillation Family History Father Cancer History of heart disease Mother Pneumonia Stroke Brother Prostate cancer Sister Autoimmune disease Sister Breast cancer Social History marital status: household members: spouse lives independently: Yes education level: other occupational status: other Smoking Status: Former smoker Tobacco: How many years used: 25 alcohol intake: current substance use type: marijuana Discharge Assessment & Plan Assessment and Plan Assessment: 89-year-old male with CVA perhaps progression of CVA with new symptoms this morning Assessment 1. CVA, anterior temporal infarct and inferior right parietal infarct due to embolic event Patient continues on telemetry with underlying probable atrial fibrillation with paced rhythm. Patient evaluated by PT and OT who feel that he is improved slightly with his jhoan neglect of the left upper extremity from his previous hospitalization on Wednesday. He will continue to work with PT and OT Appreciate speech therapy evaluation and subsequent modified swallow eval which was negative. He will continue with a regular diet. I think because of his neglect his cognitive effect from the stroke in his advanced age that he would benefit from inpatient stroke rehab for aggressive treatment. We will look into this and see if this is possible if he is a candidate. We will continue with the atorvastatin 80 mg daily Continue with Plavix 75 mg daily and aspirin. Reviewed anticoagulation for his AFib. He has a cardiac indication and no cardiac contraindication and they felt we needed to discuss with primary care and Neurology whether we could do anticoagulation for his AFib. Reviewed echo which has not changed from his previous in 2021 he has moderate concentric LVH with normal ejection fraction 55-60 this seems slightly improved from 2020 due Assessment 2. History of bladder cancer Plan had discussion regarding further anticoagulation and will discuss with Cardiology as well as Urology before initiating above and beyond the dual platelet therapy Assessment 3. Hypertension stable Plan: Will monitor and continue outpatient medications. Blood pressures are fluctuating. Will switch metoprolol to 12.5 twice daily and continue to monitor. Reviewed echo which was stable Assessment 4. Chronic atrial fibrillation At this point family is hesitant to put him on Xarelto because of his previous experience. Discussed with Cardiology and they said he has a cardiac indication and no cardiac contraindication but in terms of whether it is safe for him to have this they can not determine. Extensive conversation at this point will hold off on initiating Xarelto We reviewed bleeding risk. Assessment 5. Diarrhea Plan: Imodium PRN and will do GI array to rule out infectious etiology C diff etc.. No history of oral antibiotics or antibiotics and general. 45 minutes was spent with the patient in reviewing his clinic chart and reviewing his hospital chart and meeting with patient and formulating a plan and documentation and discharge documentation Code status is full code Discharge medications: Atorvastatin 80 mg daily Aspirin 325 mg daily Plavix 75 mg daily Losartan 25 mg daily Metoprolol 12.5 mg twice daily Acyclovir, prn Discharge Plan Discharge Plan Patient Disposition: SNF [facility] Consult as needed: Dental, Hearing, Mental health, Podiatry and Vision Discharge orders & Medications Prescriptions: New clopidogrel 75 mg Tablet 75 mg PO DAILY Qty: 30 0RF atorvastatin 20 mg Tablet 80 mg PO BEDTIME Qty: 30 0RF Continued oxybutynin chloride 5 mg Tablet 5 mg PO TID PRN (Reason: Bladder spasms) Qty: 90 0RF acyclovir 400 mg tablet 400 mg PO Q8H losartan 25 mg tablet See Rx Instructions .ROUTE .COMPLEX Qty: 90 3RF Dose Instruction: TAKE ONE TABLET BY MOUTH ONE TIME DAILY Rx Instructions: TAKE ONE TABLET BY MOUTH ONE TIME DAILY Changed atorvastatin 20 mg Tablet 80 mg PO BEDTIME Qty: 30 0RF aspirin 81 mg tablet 325 mg PO DAILY Qty: 90 0RF metoprolol tartrate 25 mg tablet 12.5 mg PO DAILY Qty: 90 0RF Follow up/Referrals: Tami Gomez MD [Primary Care Provider, Family Practice] Discharge Health Status Multidrug resistant organism: No MDRO Precautions: [place] Diet/Activity/Treatments Diet: Low-sodium Liquid consistency: Normal/Thin Food texture: Regular Special Rehabilitation Services Reason for rehabilitation: Therapy following stroke Rehab type: Physical therapy, Occupational therapy and Speech therapy Visit Report/Discharge Packet Stand Alone Forms: Patient Portal/API Discharge Data Primary Care Provider: Tami Gomez Quality VTE Deep Vein Thrombosis/Pulmonary Embolism Present on Admission: No
--- NOTE | 2025-02-21 11:12 | CM.DPNOTE ---
DCP note CLASSIFIED AD CLERK reviewed EMR per Yudith, feels strongly that pt should dc to INPT rehab. CLASSIFIED AD CLERK met with pt and spouse in room. reviewed DCP options. agreeable to trying for INPT rehab. preference [facility] if possible. spouse to transport. CLASSIFIED AD CLERK answered questions to best of ability. Per provider, cleared to dc today. CLASSIFIED AD CLERK emailed clinicals to Ameya. per Ameya after review, able to accept today, pt to leave at 4pm. CLASSIFIED AD CLERK updated pt/spouse/nursing staff. Gave RN report. updated HYDRO PNEUMATIC TESTER. CLASSIFIED AD CLERK sent signed med list and dc summary to Ameya. P: dc today to [facility] INPT rehab, spouse to transport at 4pm. no further CM needs at this time. will continue to follow as needed JARETH Abreu
--- NOTE | 2025-02-21 11:50 | OT.IP.TRT ---
Current Diagnoses Cerebral infarction, unspecified (02/19/25) Occupational Therapy Treatment Note M2 OT-IP Current Condition Start: 02/19/25 16:20 Freq: Status: Active Protocol: Document 02/19/25 16:20 PAVAN (Rec: 02/19/25 16:40 PAVAN Desktop) Occupational Therapy Current Condition Current Condition Evaluation Date 02/19/25 Treatment Diagnosis CVA Diagnosis Onset Date 02/19/25 M3 OT- IP Subjective and Pain Start: 02/19/25 16:20 Freq: Status: Active Protocol: Document 02/21/25 12:07 [facility] (Rec: 02/21/25 12:17 [facility] Desktop) OT- Subjective Occupational Therapy Visit Type Type Treatment Note Visit Start Time 09:10 Visit Stop Time 11:50 Notes Pt seen from [id number] and [id number]. Occupational Therapy Visit Comments Patient Comments Pt agreed to do FMS and take a shower. Patient/Caregiver To go to acute rehab. Goals OT Pain Assessment Pain When Pain Assessed At Rest Pain Present Pain Present Denied Pain M4 OT- IP ADL's Start: 02/19/25 16:20 Freq: Status: Active Protocol: Document 02/21/25 12:07 [facility] (Rec: 02/21/25 12:17 [facility] Desktop) OT [id number] Comments OT Self-Feeding Cues to incorporate left hand , but doing better today. Comments OT ADL-Grooming General Evaluation Grooming Ability Standby Assistance Comments OT Grooming Comments VC to look to the left for items on the counter and be mindful of the left hand. OT ADL-Dressing General Eval Lower Body Dressing Minimal Assistance Ability Comments OT Dressing Comments SHANICE to help straighten his left sock. Pt able to incorporate left hand at 25% more today versus yesterday. OT ADL-Toileting General Evaluation Toileting Ability Minimal Assistance Areas Needing Manage Clothing Assistance OT ADL-Bathing General Evaluation Bathing Ability Minimal Assistance Areas Needing Wash/Dry Back,Wash/Dry Lower Extremities Assistance Comments OT Bathing Comments Also needing CGA for balance needs while standing to shower and turn in addition to use of grab bars for balance. M5 OT- IP IADL's Start: 02/19/25 16:20 Freq: Status: Active Protocol: Document 02/19/25 16:20 [facility] ([facility]25 [facility]-Instrumental Activities of Daily Living Deficits IADL Deficits No Deficits Identified Home Safety Awareness Awareness of Need Decreased Awareness for Assistance at Home Medication Management Medication Pts spouse reports he was having difficulty opening and Management Comments managing his pills this morning. Money Management Money Management No Deficits Identified Meal Preparation Meal Preparation No Deficits Identified Meal Preparation Spouse can assist Comments Senior Treasury Analyst Senior Treasury Analyst Caregiver Provides Assist Driving Driving Comments Spouse can assist M6 OT- IP Functional Cognition Start: 02/19/25 16:20 Freq: Status: Active Protocol: Document 02/21/25 12:07 [facility] (Rec: 02/21/25 12:17 [facility] Desktop) OT- Vision and Hearing OT- Vision Assessment Vision Assessment Pt's left eye peripheral vision at 60 degrees. Comments M7 OT- IP Mobility and Balance Start: 02/19/25 16:20 Freq: Status: Active Protocol: Document 02/21/25 12:07 [facility] (Rec: 02/21/25 12:17 [facility] Desktop) OT-Transfer Assessment Sit to and From Stand Sit to and from Standby Assistance Stand Transfers Transfer Ability Standby Assistance,Contact Guard Assistance Technique Transfer Destination Chair,Shower Stall,Toilet Devices Transfer Assistive Gait Belt Devices Comments Mobility Comments SBA initially in the room and then had loss of balance x3 while in the shower while trying to dry off and needing CGA to help re-balance pt. OT- Balance Assessment Sitting Balance and Reactions Static Sitting Normal Balance Ability Dynamic Sitting Good Balance Ability Standing Balance and Reactions Static Standing Fair Balance Ability Dynamic Standing Fair Balance Ability M8 OT- IP Objective Assessments Start: 02/19/25 16:20 Freq: Status: Active Protocol: Document 02/19/25 16:20 [facility] (Rec: 02/19/25 16:40 [facility] Gross Range of Motion Upper Extremity Range of Motion Assessment Within Functional Limits OT Strength Upper Extremity Strength Shoulder R 5, L 4- Elbow R 5, L 4+ Hand B 5 Hand Voice Pathologist Strength Hand Dominance Mixed OT- Coordination Assessment Upper Extremity Finger to Nose Test Within Functional Limits Comments Coordination Pts spouse reports pt having difficulty this morning Comments managing his medications. Pt would benefit from additional FM assessments OT-Muscle Tone Assessment Muscle Tone WNL Yes OT Sensation Assessment Location Left Arm Light Touch Impaired Deep Pressure Impaired Comments Summary Comments Pt is able to correctly state where OT is touching his L UE, but reports that both light and deep touch are less sensitive than when performed on the R UE. Edema Edema Absent M9 OT- IP Assessment and Plan Start: 02/19/25 16:20 Freq: Status: Active Protocol: Document 02/21/25 12:07 [facility] (Rec: 02/21/25 12:17 [facility] Desktop) OT Summary Assessment and Plan Potential Rehabilitation Excellent Potential Analytic Complexity Moderate at Evaluation Summary OT Impairments Strength,Balance,Coordination,Sensation,Functional Cognition,Functional Mobility,Grooming,Dressing, Toileting,Bathing,Toilet Transfers,Shower Transfers, Activity Tolerance Progress Towards Progressing Toward Goals Goals Assessment Summary Pt 9 hole peg test for both hands today no change from yesterday at 78sec for left hand and 35 for right hand. Pt able to use his left hand a little better today after cues for grooming, toileting and showering needs. Pt sitting 130/84 and standing 102/70 and 108/81 with not complaints of being hypotensive. Pt will benefit from acute rehab to continue to work on incorporation of RUE for ADL, IADL , and mobility needs. Goals Grooming Goal Independent Dressing Goal Independent Toileting Goal Independent Bathing Goal Independent Toilet Transfer Goal Independent,Grab Bars OT-Other Goals Pt to incorporate his LUE for all ADL and mobility 100% of the time. Days to Meet Goals 8 Treatment Plan OT Treatment Plan ADL Training,Functional Mobility,Therapeutic Exercises, Vision Retraining,Patient/Family Education,Discharge Planning Discharge Recommendations OT Discharge Acute Rehab Recommendations Transportation Needs Private Vehicle at Discharge
--- NOTE | 2025-02-21 14:15 | PT.IPTN ---
Current Diagnoses Cerebral infarction, unspecified (02/19/25) Physical Therapy Treatment Note M2 PT-IP Current Condition Start: 02/20/25 12:53 Freq: NEEDED Status: Active Protocol: Document 02/20/25 12:00 AB (Rec: 02/20/25 13:05 AB [id number]) Physical Therapy Current Condition Current Condition Evaluation Date 02/20/25 Treatment Diagnosis R CVA; difficulty in walking Onset Date 02/19/25 M3 PT-IP Subjective Start: 02/20/25 12:53 Freq: NEEDED Status: Active Protocol: Document 02/21/25 14:15 AB (Rec: 02/21/25 15:20 AB [id number]) Subjective Physical Therapy Visit Type Type Treatment Note Visit Start Time 14:15 Visit Stop Time 14:45 Number of CONTROL ROOM TECHNICIAN Visits 0 Physical Therapy Visit Comments Patient Comments agreeable to do PT M4 PT-IP Mobility and Gait Start: 02/20/25 12:53 Freq: NEEDED Status: Active Protocol: Document 02/21/25 14:15 AB (Rec: 02/21/25 15:20 AB [id number]) PT-Bed Mobility Assessment Supine to Sit Supine to Sit Independent Sit to Supine Sit to Supine Independent PT-Transfer Assessment Sit to and From Stand Sit to and from Standby Assistance,1 Person Assistance,Use of Upper Stand Extremities Equipment Transfer Assistive None,Gait Belt Device Orthotic/Prosthetic No Devices or Brace: Comments Mobility Comments pt in bed and spouse in room. pt agreed to do PT. pt continues to be impulsive. mod I with supine to sit. SBA for sit to stand. ambulated ~ 250 ft without AD with (+) LOB x 4 posteriorly and laterally to the R needing min A for recovery. cued pt to slow down. pt with decrease safety awareness. pt tends to walk closer to the L side instead of R and needed cues to increase L side awareness. pt able to turn head to L side and name things on the L during ambulation but needed cues to initiate looking to the L . pt completed up/down steps using B rails CGA. ambulated back to his room. pt requested to go back to bed sit to supine mod I. call light and table placed next to pt. left pt with spouse. Gait Assessment Gait Gait Assistance Contact Guard Assist,Minimum Assistance Required: Distance (Feet) 250 Able to Maintain Yes Weight Bearing Status During Gait Assistive Devices Assistive Device None,Gait Belt Orthotic/Prosthetic No Devices or Brace: Gait Deviations General Gait Pattern Decreased Stride Length,Decreased Feet Clearance Factors Limiting Gait Function Factors Limiting Decreased Activity Tolerance,Decreased Strength, Gait Function Incoordination,Pain,Poor Balance,Poor Safety Awareness Stair Climbing Assessment Evaluation Level of Assist On Contact Guard Assistance Stairs Devices Stair Climbing Left Railing,Right Railing Assistive Devices Technique/Endurance Stair Climbing Ascend and Descend Direction Stair Climbing Step Over Step Technique Number of Steps 3 Climbed Stair Climbing Set # 1 Repetitions (reps) M5 PT-IP Objective Assessments Start: 02/20/25 12:53 Freq: NEEDED Status: Active Protocol: Document 02/20/25 12:00 AB (Rec: 02/20/25 13:05 AB [id number]) Orientation Orientation/Cognition Level of Alertness Alert Orientation Name,Place,Situation Safety Awareness Decreased Safety Awareness Memory Description Short Term Impaired Comments needs increase time to answer questions Gross Range of Motion Lower Extremity ROM Assessment Within Functional Limits Strength Lower Extremity Strength Assessment Within Functional Limits Sensation Assessment Sensation Gross Sensation WNL Muscle Tone Muscle Tone WNL Yes M6 PT-IP Treatment Start: 02/20/25 12:53 Freq: NEEDED Status: Active Protocol: Document 02/21/25 14:15 AB (Rec: 02/21/25 15:20 AB [id number]) Physical Therapy Treatment Education Education Provided Safety M7 PT-IP Assessment and Plan Start: 02/20/25 12:53 Freq: NEEDED Status: Active Protocol: Document 02/21/25 14:15 AB (Rec: 02/21/25 15:20 AB [id number]) PT Summary Assessment and Plan Potential Rehabilitation Good Potential Summary Impairments Pain,ROM,Strength,Balance,Coordination,Sensation,Tone, Cognition,Bed Mobility,Transfers,Gait,Activity Tolerance Progress Towards Slow Progress - Other Goals Assessment Summary pt requiring CGA to min A with ambulation without AD with (+) LOB requiring min A and cues. pt continues to have decrease L sided awareness and also impulsive needing cues for safety. pt plans to d/c to acute rehab . Goals Bed Mobility Goal Independent Transfer Goal Independent Gait Goal Independent Gait Distance 300 Other Goals up/down 6 steps L rail ascending + up/down 14 steps B rails mod I Days to Meet Goals 5 Frequency of Treatment Frequency Of Once a Day Treatment Treatment Plan Physical Therapy Bed Mobility Training,Transfer Training,Gait Training, Treatment Plan Therapeutic Exercise,Balance Retraining,Discharge Planning,Hot or Cold Pack,Neuromuscular Re-ed, Coordination Retraining,Manual Therapy Recommendations To Nursing Amount of Assist 1 Person Assist Needed Discharge Recommendations PT Discharge Home with Assistance,Acute Rehab,Outpatient PT Recommendations Transportation Needs Private Vehicle at Discharge - PT assist 1
--- NOTE | 2025-02-21 15:42 | SLP.IPNOTE ---
Chart reviewed. Pt participated in MBSS on 02/20 which revealed a functional oral, pharyngeal, and esophageal swallow. It was recommended the pt continue baseline diet of regular solids (IDDSI 7) and thin liquids (IDDSI 0). No further skilled speech therapy services warranted re: swallowing. Discharge order in place this care date for pt to inpatient rehab, recommend pt participate in a comprehensive cognitive-linguistic evaluation at the next level of care to guide POC/tx in order to increase functional independence and quality of life.
--- NOTE | 2025-02-21 15:53 | PC.NURSE ---
IV and tele removed. D/c packet given to spouse, who will give to facility upon transfer. Report given to DORA Delatorre, at [facility]. Pt exited via w/c with MERCHANDISING PROFESSOR to private vehicle.
== END 2025-02-21 15:54 | DRG 65 ==
LOC: ED 11:25 → AC 12:16
PROVIDERS: Admitting Provider Family Medicine; Emergency Provider Emergency Medicine; PCP Family Medicine; Referring Provider Emergency Medicine; Visit Provider Family Medicine
DX: I63.411 Cerebral infarction due to embolism of right middle cerebral artery (principal); I48.20 Chronic atrial fibrillation, unspecified; I63.431 Cerebral infarction due to embolism of right posterior cerebral artery; R27.8 Other lack of coordination; R47.81 Slurred speech; R29.810 Facial weakness; I25.10 Atherosclerotic heart disease of native coronary artery without angina pectoris; R19.7 Diarrhea, unspecified; I10 Essential (primary) hypertension; Z85.46 Personal history of malignant neoplasm of prostate; Z95.0 Presence of cardiac pacemaker; Z87.891 Personal history of nicotine dependence; Z85.51 Personal history of malignant neoplasm of bladder
CPT/HCPCS: 36415; 70450; 70496; 70498; 71045; 74230; 80048; 80053; 80305; 81003; 81015; 82550; 82962; 84484; 85025; 85610; 85730; 87086; 92610; 92611; 93005; 97116; 97161; 97166; 97530; 97535; 99285; 99291; Q9967

== ENCOUNTER 2025-03-07 11:00 | Outpatient (RCR) | payer MEDICARE, SELFPAY ==
[2025-02-19 12:29] VITALS: BMI 29.2
--- NOTE | 2025-03-07 14:37 | OT.OP.EVAL ---
Visit Care Team Role Provider Type Marilin Zurita MD Family Provider Physician Primary Care Provider Specialty: Family Practice Address: [facility] [facility], [address], [place], [address] Email: [email or web address] Samuel Kim MD Attending Provider Non-Staff Referring Provider Specialty: Internal Medicine Address: [address] [place] [address], [place], [address] Email: Occupational Therapy Initial Evaluation OT Outpatient Adult Evaluation Start: 03/07/25 14:08 Freq: Status: Active Protocol: Document 03/07/25 14:09 AMS (Rec: 03/07/25 14:32 AMS [id number]) General Information - Adult Insurance Select Information Visit Start Time 11:40 Visit Stop Time 12:25 Treatment Setting Outpatient Care Note Type Initial Evaluation Assessment/Plan Treatment Assessment Adam is a 89 y.o., right hand dominant male, referred to outpatient OT secondary to R CVA affecting non- dominant side. Adam will be going to [facility] in [place], [place] for outpatient PT, to address balance and strength issues, starting next week, at a frequency of 1 x per week. Currently his outpatient PT program consists of s-s without support (3 sets), standing marches w/ hip flexion (3 sets), tandem stance (3 sets) , and single leg balance (2 sets) w/ goal of execution daily. He is independent with BADLS, including shoe tying, zippers, and buttons. He is not driving; he is executing simple meal preparation, such as breakfast; although, his appetite is reportedly 'lousy'. He is completing med management w/ assistance from Rylie. His hobbies include sailing, camping (w/ use of new [place] ), and traveling. He uses an ipad; he is not using the couple's standard desktop computer (has not tried since time of d/c from hospital). He is also playing cribbage. He is ambulating without mobility AE; he is independent w/ transfers. He denied any recent falls. He demonstrated good awareness of digits in space bilaterally w/ EO and EC; good thumb coordination bilaterally w/ thumb slides. Good bilateral functional UE AROM. Some inconsistencies w/ pacing and response noted; although, no cueing to attend to left cup and/or space to left of midline w/ 9-HPT and/or engagement in [employer] Peg[employer]. No gait deviation noted w/ ambulation thru the gym; (+) attention to L arm rest w/ functional transfer. (+) attending to L wrist w/ management of sleeve. Clinician positioned to pt's left of midline w/ good eye contact. No inattention to L UE /L sided neglect noted. Rylie and Adam verbalized that their main concerns are related to cognition; thus, recommend referral to outpatient MANAGER DATA WAREHOUSING. Comment d/c from OT; recommended referral to MANAGER DATA WAREHOUSING given concerns re: cognition
== END 2025-03-09 11:03 | disposition home or self-care (01) ==
LOC: OT 11:00
PROVIDERS: Family Provider Family Medicine; PCP Family Medicine; Referring Provider Internal Medicine; Visit Provider Internal Medicine
DX: I63.9 Cerebral infarction, unspecified (principal)
CPT/HCPCS: 97165; 97530

== ENCOUNTER 2025-04-10 13:00 | Outpatient (RCR) | payer MEDICARE, SELFPAY ==
[2025-02-19 12:29] VITALS: BMI 29.2
--- NOTE | 2025-03-16 16:40 | ST.OPIE ---
Visit Care Team Role Provider Type Marilin Zurita MD Attending Provider Physician Family Provider Primary Care Provider Referring Provider Specialty: Family Practice Address: [address] [place] [address], [address], [place], [address] Email: [email or web address] Speech-Language Pathology Initial Evaluation CASE THERAPIST Adult Cognitive Linguistic Eval Start: 03/16/25 14:32 Freq: Status: Active Protocol: Document 03/16/25 14:33 MA (Rec: 03/16/25 14:33 MA Desktop) Adult Cognitive Linguistic Evaluation Session Time Visit Start Time 13:45 Visit Stop Time 14:30 Total Visit Minutes 45 Visit Information Visit Number Initial Eval Plan of Care Dates 03/16/25-06/16/25 Insurance Medicare Information Referral Referring Provider Dr. Zurita Reason for Referral CVA Setting Assessment Location Outpatient Care Visit Type Note Type Initial evaluation Next Note Type Next Note Type Treatment Note Patient Information Identification Type Name Patient History Pt is an 89 year old male seen this date for cognitive- linguistic evaluation at the referral of Dr. Zurita. ST evaluation was recommended d/t Pt having a stroke on February 17. At the time of Pt's stroke he was disoriented, wandering around with left sided droop and doesn't recall much of what was happening. Pt , Binta, accompanied him to evaluation and provided information Pt could not recall. Pt went to inpatient rehab for a week following his stroke where he had PT/ OT. Pt with PMHx significant for Afib. Pt and his report residual symptoms from stroke include some cognitive difficulties, such as short term memory loss, trouble utilizing phone and computer, temporal orientation, specifically how long it might take to get somewhere. Pt reports he manages him own medications without trouble and his has always done the finances. Pt reports he is not driving right now but would like to get back to doing that. Hearing Hearing Level Normal Previous Therapy Previous Speech- No Language Therapy Subjective Patient Report Pt lives at home with his . Mental Status Alert,Responsive,Cooperative Informal Assessment Receptive Language Yes Normal Expressive Language Yes Normal Pragmatic Language Yes Normal Speech Normal Yes Cognition Normal No Cognitive Impairment Short-term memory (s) Formal Assessment Standardized Test/ Scales of Cognitive and Communicative Ability (SCCAN) Screener Type Administration Initiated,Incomplete Results ST initiated administration of the Scales of Cognitive and Communicative Ability for Neurorehabilitation ( SCCAN); however, testing was not completed due to time constraints. Assessment will be continued during the next session. Pt completed orientation section with 100 % accuracy, speech comprehension with 100% accuracy, and oral expression naming with 100% accuracy. Findings/Results Language Function Mildly impaired Cognitive Function Mildly impaired Findings Pt presents with suspected mild cognitive-communication deficit, however ST to complete testing during next session to have better understanding of his current cognitive linguistic abilities and how they compare to his baseline per Pt and Pt report. Cognitive Communication Deficits Self-awareness of Predictive awareness (able to predict problem; impact Cognitive- of impairments) Communication Deficits Prognosis Prognosis Good Plan of Care Speech-Language Yes Treatment Frequency 1x/week Duration 3 months Patient/Caregiver Patient expressed agreement with goals and treatment Education plans,Family/caregivers expressed agreement with goals and treatment plan,Patient requires further education/ training,Family/caregivers require further education/ training Short Term Goals STG 1: Pt will participate in standardized testing for cognition/language to further guide POC. STG 2: Pt will demonstrate use of external memory aids (e.g., paraplanner, phone alarms, written lists, sticky notes) to recall daily information with 80% accuracy and minimal cues. STG 3: Pt will identify and describe at least three internal memory strategies (e.g., rehearsal, visualization, association, chunking) with 90% accuracy given minimal verbal cues. Water Taxi Operator Goals LTG 1: Pt will utilize internal and external memory compensatory strategies to support recall of functional information and daily tasks with 80% accuracy given minimal cues across 3 consecutive sessions.
--- NOTE | 2025-03-16 16:40 | ST.OPPOC ---
Physical, Occupational & Speech Therapy At [facility] Visit Care Team Role Provider Type Marilin Zurita MD Attending Provider Physician Family Provider Primary Care Provider Referring Provider Address: [address] [place] [address], [address], [place], [address] Speech Pathology Plan of Care Plan of Care Dates 03/16/25-06/16/[address] Zurita Patient History Pt is an 89 year old male seen this date for cognitive-linguistic evaluation at the referral of Dr. Zurita. ST evaluation was recommended d/ t Pt having a stroke on February 17. At the time of Pt's stroke he was disoriented, wandering around with left sided droop and doesn 't recall much of what was happening. Pt , Binta, accompanied him to evaluation and provided information Pt could not recall. Pt went to inpatient rehab for a week following his stroke where he had PT/OT. Pt with PMHx significant for Afib. Pt and his report residual symptoms from stroke include some cognitive difficulties, such as short term memory loss, trouble utilizing phone and computer, temporal orientation, specifically how long it might take to get somewhere. Pt reports he manages him own medications without trouble and his has always done the finances. Pt reports he is not driving right now but would like to get back to doing that. Self-awareness of Cognitive- Predictive awareness (abl Communication Deficits MBS Comments Pt presented with oral, pharyngeal and esophageal swallow phases WFL. With fatigue, pt 's speech becomes mildly dysarthric. This is expected to improve. The MBSS results and recommendations were discussed with the pt and his who indicated that understood. All questions were answered. Recommended Referrals Primary Care Physician Short Term Goals STG 1: Pt will participate in standardized testing for cognition/language to further guide POC. STG 2: Pt will demonstrate use of external memory aids (e.g., principal planner, phone alarms, written lists, sticky notes) to recall daily information with 80% accuracy and minimal cues. STG 3: Pt will identify and describe at least three internal memory strategies (e.g., rehearsal, visualization, association, chunking) with 90% accuracy given minimal verbal cues. Short-term Goals 1. Patient will complete MBSS to further evaluate swallowing pathophysiology and determine next steps in POC. 2. Patient will use compensatory meal strategies with 90% accuracy with min verbal/visual cues to increase safety and efficiency with PO intake . Nozzle And Sleeve Worker Goals LTG 1: Pt will utilize internal and external memory compensatory strategies to support recall of functional information and daily tasks with 80% accuracy given minimal cues across 3 consecutive sessions. Long-term Goals Patient will safely tolerate least restrictive diet consistency to allow for safe consumption of daily meals without s/sx of aspiration. Comment: Electronically Signed by: RADHA Zamora 03/16/25 1640 If you are in agreement with this Plan of Care, please return a signed and dated copy. I have reviewed this Plan of Care and certify that the skilled therapy services above are required to meet the patient?s needs. Physician Signature Date Printed Name and Credentials Clinical Instructor Signature Printed Name and Credentials
--- NOTE | 2025-03-21 12:05 | ST.OPTN ---
Visit Care Team Role Provider Type Marilin Zurita MD Attending Provider Physician Family Provider Primary Care Provider Referring Provider Address: [address] [place] [address], [address], [place], [address] CALIBRATION SPECIALIST Treatment Note CALIBRATION SPECIALIST Treatment Note Start: 03/21/25 12:00 Freq: Status: Active Protocol: Document 03/21/25 12:01 MA (Rec: 03/21/25 12:05 MA Desktop) Speech Pathology Treatment Note Session Time Visit Start Time 10:45 Visit Stop Time 11:30 Total Visit Minutes 45 Visit Information Visit Number 2 Plan of Care Dates 03/16/25-06/16/25 Setting Treatment Setting Outpatient Care Next Note Type Next Note Type Treatment Note General Information Patient History Pt is an 89 year old male seen this date for cognitive- linguistic evaluation at the referral of Dr. Zurita. ST evaluation was recommended d/t Pt having a stroke on February 17. At the time of Pt's stroke he was disoriented, wandering around with left sided droop and doesn't recall much of what was happening. Pt , Binta, accompanied him to evaluation and provided information Pt could not recall. Pt went to inpatient rehab for a week following his stroke where he had PT/ OT. Pt with PMHx significant for Afib. Pt and his report residual symptoms from stroke include some cognitive difficulties, such as short term memory loss, trouble utilizing phone and computer, temporal orientation, specifically how long it might take to get somewhere. Pt reports he manages him own medications without trouble and his has always done the finances. Pt reports he is not driving right now but would like to get back to doing that. Subjective Identification Type Name Others Present Family Observations/Patient Pt arrived on time with his who accompanied him to Presentation therapy. Chief Complaint(s) Cognitive Objective Short Term Goals STG 1: Pt will participate in standardized testing for cognition/language to further guide POC.- MET STG 2: Pt will demonstrate use of external memory aids (e.g., funeral planner, phone alarms, written lists, sticky notes) to recall daily information with 80% accuracy and minimal cues. STG 3: Pt will identify and describe at least three internal memory strategies (e.g., rehearsal, visualization, association, chunking) with 90% accuracy given minimal verbal cues. Drill Operator Automatic Goals LTG 1: Pt will utilize internal and external memory compensatory strategies to support recall of functional information and daily tasks with 80% accuracy given minimal cues across 3 consecutive sessions. Treatment Activities Completion of Scales of Cognitive and Communicative Ability for Neurorehabilitation (SCCAN), education on recommendations going forward with therapy Assessment Patient Response to Excellent Treatment Rehab Potential Excellent Impairments Cognitive communication Identified Progress Towards Excellent Progress Goals Assessment of Pt scored a raw score of 87 on SCCAN, indicating a Improvement severity rating of Typical functioning. He scored the following on each subtest: Oral expression 100% Orientation 100% Memory 68% Speech comprehension 100% Reading comprehension 100% Writing 100% Attention 93% Problem solving 95% Pt exhibited strengths in most areas, however demonstrated more difficulties with short term memory recall. ST educated Pt on plan to review test results during next visit and provide education on internal and external memory strategies. Pt and Pt verbalized understanding. Reviewed with Goals Patient Patient/Caregiver Excellent Understanding
--- NOTE | 2025-03-28 11:47 | ST.OPTN ---
Visit Care Team Role Provider Type Marilin Zurita MD Attending Provider Physician Family Provider Primary Care Provider Referring Provider Address: [address] [place] [address], [address], [place], [address] BUSINESS SYSTEMS TECHNICIAN Treatment Note BUSINESS SYSTEMS TECHNICIAN Treatment Note Start: 03/21/25 12:00 Freq: Status: Active Protocol: Document 03/28/25 11:30 MA (Rec: 03/28/25 11:47 MA Desktop) Speech Pathology Treatment Note Session Time Visit Start Time 10:45 Visit Stop Time 11:25 Total Visit Minutes 40 Visit Information Visit Number 3 Plan of Care Dates 03/16/25-06/16/25 Setting Treatment Setting Outpatient Care Next Note Type Next Note Type Treatment Note General Information Patient History Pt is an 89 year old male seen this date for cognitive- linguistic evaluation at the referral of Dr. Zurita. ST evaluation was recommended d/t Pt having a stroke on February 17. At the time of Pt's stroke he was disoriented, wandering around with left sided droop and doesn't recall much of what was happening. Pt , Binta, accompanied him to evaluation and provided information Pt could not recall. Pt went to inpatient rehab for a week following his stroke where he had PT/ OT. Pt with PMHx significant for Afib. Pt and his report residual symptoms from stroke include some cognitive difficulties, such as short term memory loss, trouble utilizing phone and computer, temporal orientation, specifically how long it might take to get somewhere. Pt reports he manages him own medications without trouble and his has always done the finances. Pt reports he is not driving right now but would like to get back to doing that. Subjective Identification Type Name Others Present Family Observations/Patient Pt arrived on time with his who accompanied him to Presentation therapy. Chief Complaint(s) Cognitive Objective Short Term Goals STG 1: Pt will participate in standardized testing for cognition/language to further guide POC.- MET STG 2: Pt will demonstrate use of external memory aids (e.g., financial planner, phone alarms, written lists, sticky notes) to recall daily information with 80% accuracy and minimal cues. STG 3: Pt will identify and describe at least three internal memory strategies (e.g., rehearsal, visualization, association, chunking) with 90% accuracy given minimal verbal cues. Door Manager Goals LTG 1: Pt will utilize internal and external memory compensatory strategies to support recall of functional information and daily tasks with 80% accuracy given minimal cues across [address] Treatment Activities ST reviewed results of the SCCAN assessment from the previous session with the patient, focusing on areas of memory recall. During conversation, ST provided education on practical number recall strategies, including chunking, visualization, and use of external memory aids. ST discussed recommendations for ongoing therapy targeting number processing, memory support, and functional application of numeric skills. Patient and caregiver were engaged in the discussion and verbalized understanding of the plan moving forward. Assessment Patient Response to Excellent Treatment Rehab Potential Excellent Impairments Cognitive communication Identified Progress Towards Excellent Progress Goals Assessment of Pt reported increased confusion and difficulty Improvement completing Sudoku puzzles, an activity he has done for years without issue. He described recent episodes (1?2 times) of not knowing where to start the puzzle. Pt?s reports noticeable difficulties with time management, specifically understanding when to leave for appointments, leading to increased anxiety about punctuality. They regularly play cribbage, which requires numerical skills, and Pt denies difficulty with this activity. ST assessed auditory number comprehension, number writing, and verbal number production; Pt completed all tasks with 100% accuracy. Intervention/Education: ST educated Pt and his on the application of numbers using Tactus therapy materials to support number practice at home. Pt was encouraged to continue engaging in number-related activities such as Sudoku and cribbage. ST advised Pt to track instances of confusion during these tasks and note his emotional state at those times. ST provided homework consisting of temporal orientation and problem-solving questions related to time management. Plan: ST will introduce education on internal and external memory strategies during the next session. Pt?s reported she will call to schedule further appointments . Reviewed with Goals Patient Patient/Caregiver Excellent Understanding
--- NOTE | 2025-04-04 14:20 | ST.OPTN ---
Visit Care Team Role Provider Type Marilin Zurita MD Attending Provider Physician Family Provider Primary Care Provider Referring Provider Address: [address] [place] [address], [address], [place], [address] BRAND LEAD Treatment Note BRAND LEAD Treatment Note Start: 03/21/25 12:00 Freq: Status: Active Protocol: Document 04/04/25 14:15 MA (Rec: 04/04/25 14:19 MA Desktop) Speech Pathology Treatment Note Session Time Visit Start Time 12:15 Visit Stop Time 12:45 Total Visit Minutes 30 Visit Information Visit Number 4 Plan of Care Dates 03/16/25-06/16/25 Setting Treatment Setting Outpatient Care Next Note Type Next Note Type Treatment Note General Information Patient History Pt is an 89 year old male seen this date for cognitive- linguistic evaluation at the referral of Dr. Zurita. ST evaluation was recommended d/t Pt having a stroke on February 17. At the time of Pt's stroke he was disoriented, wandering around with left sided droop and doesn't recall much of what was happening. Pt , Binta, accompanied him to evaluation and provided information Pt could not recall. Pt went to inpatient rehab for a week following his stroke where he had PT/ OT. Pt with PMHx significant for Afib. Pt and his report residual symptoms from stroke include some cognitive difficulties, such as short term memory loss, trouble utilizing phone and computer, temporal orientation, specifically how long it might take to get somewhere. Pt reports he manages him own medications without trouble and his has always done the finances. Pt reports he is not driving right now but would like to get back to doing that. Subjective Identification Type Name Others Present Family Observations/Patient Pt arrived on time with his who accompanied him to Presentation therapy. Chief Complaint(s) Cognitive Objective Short Term Goals STG 1: Pt will participate in standardized testing for cognition/language to further guide POC.- MET STG 2: Pt will demonstrate use of external memory aids (e.g., emergency planner, phone alarms, written lists, sticky notes) to recall daily information with 80% accuracy and minimal cues. STG 3: Pt will identify and describe at least three internal memory strategies (e.g., rehearsal, visualization, association, chunking) with 90% accuracy given minimal verbal cues. Nut Grinder Goals LTG 1: Pt will utilize internal and external memory compensatory strategies to support recall of functional information and daily tasks with 80% accuracy given minimal cues across 3 consecutive sessions. Treatment Activities ST provided Pt with handouts and education on internal and external memory strategies. ST discussed recommendations for ongoing therapy targeting memory support. Patient and caregiver were engaged in the discussion and verbalized understanding of the plan moving forward. Assessment Patient Response to Excellent Treatment Rehab Potential Excellent Impairments Cognitive communication Identified Progress Towards Excellent Progress Goals Assessment of Pt reported he is not having confusion with Sudoku Improvement puzzles anymore and that he just needs to slow down when completing them. ST educated Pt and his on internal and external memory strategies, with Pt reporting some awareness for internal memory strategies , especially to recall people's names, however does not utilize them. He reports for external memory strategies he utilizes a pill box and has a shared calendar with his , which he references often. Pt enjoys telling past stories during sessions, however reported some difficulties recalling dates and names of people in his past. ST recommended they create a timeline of his life events during next session. Pt and his verbalized understanding. Intervention/Education: Pt was encouraged to continue engaging in number- related activities such as Sudoku and cribbage. ST advised Pt to track instances of confusion during these tasks and note his emotional state at those times. Reviewed with Goals Patient Patient/Caregiver Excellent Understanding
--- NOTE | 2025-04-10 16:11 | ST.OPDS ---
Visit Care Team Role Provider Type Marilin Zurita MD Attending Provider Physician Family Provider Primary Care Provider Referring Provider Address: [address] [place] [address], [address], [place], [address] [employer] Treatment Note [employer]PERVISOR Treatment Note Start: 03/21/25 12:00 Freq: Status: Active Protocol: Document 04/10/25 16:01 MA (Rec: 04/10/25 16:11 MA Desktop) Speech Pathology Treatment Note Session Time Visit Start Time 01:00 Visit Stop Time 01:45 Total Visit Minutes 45 Visit Information Visit Number 5 Plan of Care Dates 03/16/25-06/16/25 Setting Treatment Setting Outpatient Care Next Note Type Next Note Type Treatment Note General Information Patient History Pt is an 89 year old male seen this date for cognitive- linguistic evaluation at the referral of Dr. Zurita. ST evaluation was recommended d/t Pt having a stroke on February 17. At the time of Pt's stroke he was disoriented, wandering around with left sided droop and doesn't recall much of what was happening. Pt , Binta, accompanied him to evaluation and provided information Pt could not recall. Pt went to inpatient rehab for a week following his stroke where he had PT/ OT. Pt with PMHx significant for Afib. Pt and his report residual symptoms from stroke include some cognitive difficulties, such as short term memory loss, trouble utilizing phone and computer, temporal orientation, specifically how long it might take to get somewhere. Pt reports he manages him own medications without trouble and his has always done the finances. Pt reports he is not driving right now but would like to get back to doing that. Subjective Identification Type Name Others Present Family Observations/Patient Pt arrived on time with his who did not accompany Presentation him to therapy. Chief Complaint(s) Cognitive Objective Short Term Goals STG 1: Pt will participate in standardized testing for cognition/language to further guide POC.- MET STG 2: Pt will demonstrate use of external memory aids (e.g., corporate planner, phone alarms, written lists, sticky notes) to recall daily information with 80% accuracy and minimal cues.- MET STG 3: Pt will identify and describe at least three internal memory strategies (e.g., rehearsal, visualization, association, chunking) with 90% accuracy given minimal verbal cues.- MET Full Time Paramedic Goals LTG 1: Pt will utilize internal and external memory compensatory strategies to support recall of functional information and daily tasks with 80% accuracy given minimal cues across 3 consecutive sessions.- MET Treatment Activities ST provided Pt with handouts and education on internal and external memory strategies. ST discussed recommendations for discharge. Assessment Patient Response to Excellent Treatment Rehab Potential Excellent Impairments Cognitive communication Identified Progress Towards Excellent Progress Goals Assessment of Pt did not report any new memory concerns since last Improvement visit. Pt stated he has been doing well at home. Objective: During conversational tasks, Pt demonstrated one instance of recall difficulty. ST encouraged Pt to describe features/details of the target item, which Pt was able to do with benefit from a visual aid (map) to assist in locating the place he was trying to recall. Pt continues to enjoy discussing past memories with strong detail. Occasional confusion regarding specific dates noted. ST recommended development of a personal timeline of significant life events to support orientation to dates ; however, Pt declined at this time. Assessment: Pt is able to discuss most familiar topics and recall most information with minimal difficulty. Memory lapses appear consistent with mild, age-related cognitive changes rather than pathological decline. Pt and spouse participated in discussion in the waiting room regarding progress and discharge planning. Both verbalized understanding and agreement. Plan: ST recommends discharge from therapy at this time. Pt advised to return with a new referral if cognitive or memory changes occur or if new concerns arise. Reviewed with Goals Patient Patient/Caregiver Excellent Understanding Plan Frequency of No Further Therapy Treatment Therapy Discharge from Speech Therapy Recommendations
== END 2025-04-11 09:28 | disposition home or self-care (01) ==
LOC: SP 13:00
PROVIDERS: Family Provider Family Medicine; PCP Family Medicine; Referring Provider Family Medicine; Visit Provider Family Medicine
DX: I63.411 Cerebral infarction due to embolism of right middle cerebral artery (principal)
CPT/HCPCS: 92507; 92523